=== PATIENT | female | born 1940 | race Caucasian/White ===

== ENCOUNTER → 2021-03-15 10:31 | Outpatient (CLI) | payer MEDICARE, SELFPAY ==
--- NOTE | ~2021-03-15 | XR_ITS ---
EXAMINATION: XR UGIAC wo kub DATE: 03/15/2021 11:55 INDICATION: Epigastric pain. TECHNIQUE: Thick barium contrast with gas effervescent crystals were administered orally. Fluoroscop ic images of the esophagus, stomach, and proximal duodenum were obtained in various projections. The reafter, overhead images of the abdomen were performed. 1 minutes of fluroscopy. DAP 11.4. FINDINGS: No prior studies for comparison. The esophagus is normal in caliber, without mucosal lesions or strictures. There are tertiary contrac tions of the mid and distal esophagus. Peristalsis is disordered.. There is a small hiatal hernia. A nd gastroesophageal gastroesophageal reflux witnessed during the course of the study. The gastric folds are normal. The proximal duodenum is also normal in appearance. IMPRESSION: 1. 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 2: Small sliding hernia with gastroesophageal reflux. Reviewed, dictated and finalized at location B.
== END ==
PROVIDERS: Visit Provider Physician Assistant
DX: R10.13 Epigastric pain (principal); K44.9 Diaphragmatic hernia without obstruction or gangrene; K21.9 Gastro-esophageal reflux disease without esophagitis
CPT/HCPCS: 74246

== ENCOUNTER 2021-04-02 13:25 | Emergency (ER) | payer MEDICARE, SELFPAY ==
[2021-04-02] VITALS (20 sets, daily range): BP systolic 139–172; BP diastolic 61–100; PULSE 50–90; RESP 11–21; TEMP 36.6; O2SAT 93–98
--- NOTE | 2021-04-02 13:41 | ECG_ITS ---
Measurements Intervals [place] Rate: 55 P: 76 KS: 211 QRS: 1 QRSD: 101 T: 18 QT: 443 QTc: 426 Interpretive Statements SINUS BRADYCARDIA WITH FIRST DEGREE AV BLOCK EARLY PRECORDIAL R/S TRANSITION ABNORMAL ECG Electronically Signed On 04-02-2021 15:18:32 CDT by Pino Espinal D.O.
[2021-04-02 14:43] LABS: Basophils Percent Auto 0.4 % (0.2-1.2); Eosinophils Absolute Auto 0.2 K/mm3 (0-0.3); Eosinophils Percent Auto 2.7 % (0-4.4); Hematocrit 41.7 % (37.0-47.0); Hemoglobin 13.7 g/dL (12.0-15.0); Immature Granulocyte Absolute 0.05 K/mm3 (0.00-0.031); Immature Granulocyte Percent A 0.7 % (0-0.5); Lymphocytes Absolute Auto 1.83 K/mm3 (0.9-3.2); Lymphocytes Percent Auto 24.9 % (18.3-44.2); Mean Corpuscular HGB Conc 32.9 g/dl (32-36); Mean Corpuscular Hemoglobin 29.1 pg (26-34); Mean Corpuscular Volume 88.7 fl (80-100); Mean Platelet Volume 9.7 fl (7.4-10.4); Monocytes Absolute Auto 0.5 K/mm3 (0.1-0.6); Monocytes Percent Auto 7.2 % (2.6-8.5); Neutrophils Absolute Auto 4.7 K/mm3 (1.3-6.7); Neutrophils Percent Auto 64.1 % (45.5-73.1); Platelet Count Result 349 k/mm3 (150-375); Red Cell Distribution Width 14.7 % (11.5-14.5); White Blood Count 7.3 K/mm3 (4.5-10.0)
[2021-04-02] MEDS: MECLIZINE HCL 25 MG TABLET PO (14:43)
[2021-04-02] MEDS: SODIUM CHLORIDE 0.9% IV 1,000 ML 999 ML IV CONT (14:44)
--- NOTE | 2021-04-02 14:46 | ED.GENADULT ---
HPI - General Adult General Chief complaint: Dizziness Stated complaint: Confusion, dizziness, bloody poo, nausea Time Seen by Provider: 04/02/21 13:41 History of Present Illness HPI narrative: Patient is an 80-year-old female who presents ER with dizziness. 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 Reports she was walking to the mailbox when it occurred. She eased herself down to the ground and then family came and got her. No nausea or vomiting. Symptoms are worse when looking to the right side. No fevers or chills or sweats. No chest pain or chest pressure. Reports she has been eating and drinking normally. No urinary symptoms. Patient does report she had some blood in her bowel movement today related to some hemorrhoids. No rectal pain or dizziness associated with the bowel movement. Related Data Home Medications Medication Instructions Recorded Confirmed amlodipine 10 mg PO DAILY 08/25/19 08/25/19 cyanocobalamin (vitamin B-12) 1,000 mcg PO DAILY 08/25/19 08/25/19 [Vitamin B-12] ferrous sulfate 325 mg PO BID 08/25/19 08/25/19 hydrochlorothiazide 25 mg PO DAILY 08/25/19 08/25/19 ipratropium-albuterol 1 puff INHALATION QID 08/25/19 08/25/19 letrozole 2.5 mg PO DAILY 08/25/19 08/25/19 levothyroxine 75 mcg PO DAILY 08/25/19 08/25/19 lisinopril 30 mg PO DAILY 08/25/19 08/25/19 magnesium oxide 400 mg PO DAILY 08/25/19 08/25/19 metoprolol succinate 50 mg PO DAILY 08/25/19 08/25/19 niacin 500 mg PO DAILY 08/25/19 08/25/19 pravastatin 10 mg PO DAILY 08/25/19 08/25/19 rivaroxaban 20 mg PO DAILY 08/25/19 08/25/19 Allergies Allergy/AdvReac Type Severity Reaction Status Date / Time codeine AdvReac Nausea and Verified 08/25/19 17:00 Vomiting Review of Systems Review of Systems: All systems reviewed & are unremarkable except as noted in HPI and below Constitutional: Constitutional: Denies chills, Denies fever(s) and Denies weakness Eyes: Eyes: Denies change in vision and Denies photophobia ENT: Reports vertigo, Reports nasal congestion (Chronic) and Denies sore throat Cardiovascular: Cardiovascular: Denies chest pain and Denies radiating jaw, neck or arm pain Gastrointestinal: Gastrointestinal: Denies abdominal pain, Denies nausea and Denies vomiting Neurologic: Denies headache(s), Denies focal weakness and Denies numbness PMFSH Past Medical History Medical History (Updated 04/02/21 @ 17:23 by Zack Garrett MD) Hypercholesterolemia Hypertension Meniere disease Exam Narrative: Exam Narrative: GENERAL: Well-appearing, well-nourished, and in no acute distress. HEAD: Normocephalic, atraumatic. EYES: PERRL and EOMI. no nystagmus ENT: Mucous membranes moist. CHEST: Clear to auscultation. No respiratory distress. HEART: Regular rate and rhythm. Normal peripheral pulses. ABDOMEN: Soft, nontender, nondistended. EXTREMITIES: Normal range of motion. No edema. NEURO: Alert and oriented x3. PSYCH: Normal mood and affect. Course Course Emergency Course: Patient hydrated and given meclizine. Up and ambulatory without issue. Discharge home. Vital Signs Vital signs: Vital Signs Temperature 97.8 F 04/02/21 13:28 Pulse Rate 55 L 04/02/21 13:28 Respiratory Rate 20 04/02/21 13:28 Blood Pressure 172/100 H 04/02/21 13:28 Pulse Oximetry 97 04/02/21 13:28 Temperature 97.8 F 04/02/21 13:28 Pulse Rate 72 04/02/21 17:42 Respiratory Rate 14 04/02/21 17:42 Blood Pressure 159/81 H 04/02/21 17:42 Pulse Oximetry 97 04/02/21 17:42 Medical Decision Making Vital Signs Vital Signs: Vital Signs Temperature 97.8 F 04/02/21 13:28 Pulse Rate 55 L 04/02/21 13:28 Respiratory Rate 20 04/02/21 13:28 Blood Pressure 172/100 H 04/02/21 13:28 Pulse Oximetry 97 04/02/21 13:28 Temperature 97.8 F 04/02/21 13:28 Pulse Rate 72 04/02/21 17:42 Respiratory Rate 14 04/02/21 17:42 Blood Pressure 159/81
[2021-04-02 14:52] LABS: Anion Gap 11 mmol/L (8-16); Blood Urea Nitrogen 15 mg/dL (7-17); Calcium 9.5 mg/dL (8.4-10.2); Carbon Dioxide 24 mmol/L (22-30); Chloride 103 mmol/L (98-107); Estimated CRCL calculation 63 ml/min; Estimated Glomerular Filt Rate > 60; Glucose 107 mg/dL (65-105); Potassium 3.8 mmol/L (3.4-5.0); Sodium 138 mmol/L (137-145)
== END 2021-04-02 17:44 | disposition home or self-care (01) ==
PROVIDERS: Emergency Provider Emergency Medicine
DX: H81.09 Meniere's disease, unspecified ear (principal); E78.00 Pure hypercholesterolemia, unspecified; I10 Essential (primary) hypertension; R00.1 Bradycardia, unspecified; I44.0 Atrioventricular block, first degree; Z79.01 Long term (current) use of anticoagulants
CPT/HCPCS: 36415; 80048; 85025; 93005; 96360; 99283; A9270; J7030

== ENCOUNTER 2021-05-06 13:49 | Outpatient (CLI) | payer MEDICARE, SELFPAY | END 2021-05-06 13:50 | disposition home or self-care (01) | LOC: ANHBWCAUD 13:50 | PROVIDERS: PCP Internal Medicine; Visit Provider Internal Medicine | DX: H90.3 Sensorineural hearing loss, bilateral (principal) | CPT/HCPCS: 92557; 92567 ==

== ENCOUNTER 2021-07-26 14:29 | Outpatient (CLI) | payer MEDICARE, SELFPAY ==
--- NOTE | 2021-07-27 14:37 | WPDPFTINT ---
PFT Procedure Performed PFT Procedure Performed Spirometry with Pre/Post Bronchodilator Plethysmography (Lung Vol) Diffusing Cap (DLCO) Flow Vol Loop PFT Interpretation Lung volumes were measured with the body plethysmography method. Lung volumes are unremarkable. Spirometry showed normal expiratory flow rates and a normal FEV1 to FVC ratio 77%. Following administration of a bronchodilator there was no significant increase in the expiratory flow rates. Lung diffusion capacity is within the normal range. Flow volume loop is unremarkable. Impression: Spirometry, lung volumes, and lung diffusion capacity all within the normal range.
--- NOTE | 2021-07-27 14:39 | WPDSIXMINUTE ---
Six Minute Walk Procedure Procedure Performed Pulmonary Stress Test (6 min walk) Six Minute Walk The 6 minute walk test was carried out with the patient breathing ambient air. The pre test oxyhemoglobin saturation was 94%. Patient using a wheeled walker was able to walk about 198 m with 1 stop of 5 seconds recorded. During the walk the oxyhemoglobin saturation remained over 91%. Impression: No evidence of oxyhemoglobin saturation on this testing.
== END 2021-07-26 14:30 | disposition home or self-care (01) ==
LOC: ANHPFT 14:30
PROVIDERS: PCP Internal Medicine; Visit Provider Nurse Practitioner
DX: J45.909 Unspecified asthma, uncomplicated (principal)
CPT/HCPCS: 94060; 94618; 94726; 94729

== ENCOUNTER 2021-11-30 15:42 | Emergency (ER) | payer MEDICARE, SELFPAY ==
[2021-11-30 15:45] VITALS: BP 113/84; PULSE 72; RESP 18; TEMP 36.3; O2SAT 96
--- NOTE | 2021-11-30 16:26 | ED.LOWEXIN ---
HPI - Extremity Injury (Lower) General Chief Complaint: Extremity Injury, Lower Stated Complaint: fall/foot pain Time Seen by Provider: 11/30/21 16:03 Source: patient Mode of arrival: ambulatory Limitations: no limitations History of Present Illness HPI Narrative: Patient is an 81-year-old female complaining of left foot swelling and redness, top my foot that started a few days ago. Patient states that 2 weeks ago she injured her left foot by hitting against a rocking chair, had x-rays done at an urgent care and was told that it was negative for any fracture. Related Data Home Medications Medication Instructions Recorded Confirmed amlodipine 10 mg PO DAILY 08/25/19 08/25/19 cyanocobalamin (vitamin B-12) 1,000 mcg PO DAILY 08/25/19 08/25/19 [Vitamin B-12] ferrous sulfate 325 mg PO BID 08/25/19 08/25/19 hydrochlorothiazide 25 mg PO DAILY 08/25/19 08/25/19 ipratropium-albuterol 1 puff INHALATION QID 08/25/19 08/25/19 letrozole 2.5 mg PO DAILY 08/25/19 08/25/19 levothyroxine 75 mcg PO DAILY 08/25/19 08/25/19 lisinopril 30 mg PO DAILY 08/25/19 08/25/19 magnesium oxide 400 mg PO DAILY 08/25/19 08/25/19 metoprolol succinate 50 mg PO DAILY 08/25/19 08/25/19 niacin 500 mg PO DAILY 08/25/19 08/25/19 pravastatin 10 mg PO DAILY 08/25/19 08/25/19 rivaroxaban 20 mg PO DAILY 08/25/19 08/25/19 Allergies Allergy/AdvReac Type Severity Reaction Status Date / Time codeine AdvReac Nausea and Verified 08/25/19 17:00 Vomiting Review of Systems Review of Systems: All systems reviewed & are unremarkable except as noted in HPI and below PMFSH Past Medical History Medical History Hypercholesterolemia Hypertension Meniere disease Comments Social history, non-smoker, no EtOH use, lives at home Exam Const: General: no acute distress and alert Orientation/consciousness: patient oriented x3 HENMT: Head: normal to inspection Eyes: Conjunctivae: conjunctivae normal Resp: Effort & Inspection: normal respiratory effort Extrem: Other: Erythematous, tender, swollen, fluctuant area dorsal aspect of the left foot measuring approximately 3 x 4 cm. Neurovascular is intact. Course Vital Signs Vital signs: Vital Signs Temperature 36.3 C L 11/30/21 15:45 Pulse Rate 72 11/30/21 15:45 Respiratory Rate 18 11/30/21 15:45 Blood Pressure 113/84 11/30/21 15:45 Pulse Oximetry 96 11/30/21 15:45 Temperature 36.3 C L 11/30/21 15:45 Pulse Rate 72 11/30/21 15:45 Respiratory Rate 18 11/30/21 15:45 Blood Pressure 113/84 11/30/21 15:45 Pulse Oximetry 96 11/30/21 15:45 Procedures Abscess I/D foot: Date of Incision: 11/30/21 Time of Incision: 16:31 Side (if applicable): left Local Anesthetic: lidocaine 1% Amount of anesthesia used (mL): 2 Technique: incised with #11 blade Amount of fluid expressed (mL): 3 Packing used?: iodoform I&D Results: Pus Discharge Plan Discharge Clinical Impression: Cellulitis and abscess of foot Patient Disposition: Home, Self-Care Condition: Improved Instructions: Abscess Incision and Drainage (DC) Prescriptions: New doxycycline hyclate 100 mg capsule 100 mg PO BID Qty: 14 RF: 0 No Action amlodipine 10 mg Tablet 10 mg PO DAILY RF: 0 metoprolol succinate 50 mg Tablet Extended Release 24 Hr 50 mg PO DAILY RF: 0 cyanocobalamin (vitamin B-12) [Vitamin B-12] 1,000 mcg Tablet 1,000 mcg PO DAILY RF: 0 levothyroxine 75 mcg Tablet 75 mcg PO DAILY RF: 0 pravastatin 10 mg Tablet 10 mg PO DAILY RF: 0 ferrous sulfate 325 mg (65 mg iron) Tablet 325 mg PO BID RF: 0 niacin 500 mg Tablet 500 mg PO DAILY RF: 0 lisinopril 30 mg Tablet 30 mg PO DAILY RF: 0 hydrochlorothiazide 25 mg Tablet 25 mg PO DAILY RF: 0 letrozole 2.5 mg Tablet 2.5 mg PO DAILY RF: 0 rivaroxaban 20 mg Tablet 20 mg P
[2021-11-30] MEDS: LIDOCAINE HCL 1% LOCAL INJ 20 ML VIAL (17:50)
[2021-11-30 18:10] VITALS: RESP 20; O2SAT 94
--- NOTE | 2021-11-30 18:10 | PC.NURSE ---
left foot cleansed and dressed with 4x4 gauze and secured with kerlix
== END 2021-11-30 18:11 | disposition home or self-care (01) ==
LOC: ANHED 17:01
PROVIDERS: Emergency Provider Emergency Medicine; PCP Internal Medicine
DX: L02.612 Cutaneous abscess of left foot (principal); I10 Essential (primary) hypertension; E78.5 Hyperlipidemia, unspecified; H81.09 Meniere's disease, unspecified ear
CPT/HCPCS: 10061; 99283

== ENCOUNTER 2022-01-23 12:13 | Emergency (ER) | payer MEDICARE, SELFPAY ==
[2022-01-23] VITALS (7 sets, daily range): BP systolic 110–163; BP diastolic 70–147; PULSE 71–83; RESP 16–19; TEMP 36.5; O2SAT 91–97
--- NOTE | ~2022-01-23 | XR_ITS ---
EXAMINATION: XR chest 2V DATE: 01/23/2022 13:15 INDICATION: Productive cough TECHNIQUE: PA and lateral views of the chest are obtained. COMPARISON: 08/25/2019 FINDINGS: The lungs are hyperinflated but free of acute opacities. There is no pleural effusion or pn eumothorax. The cardiomediastinal silhouette is normal. There is moderate thoracic spondylosis. Surgi dave clips are noted in the left axilla. Healed left-sided rib fractures are noted. IMPRESSION: 1. No acute cardiopulmonary abnormality. Reviewed, dictated and finalized at location A.
--- NOTE | 2022-01-23 14:17 | ED.GENADULT ---
HPI - General Adult General Chief complaint: Upper Respiratory Infection Stated complaint: coughing up blood, sick for 8 wks Time Seen by Provider: 01/23/22 13:33 Source: patient, family and RN notes reviewed Mode of arrival: ambulatory Limitations: no limitations History of Present Illness HPI narrative: 81-year-old female presents to the emergency department for evaluation for 8 weeks of an upper respiratory congestion. Patient had been doxycycline for her foot during the beginning of this illness and states that this did not help her respiratory symptoms. Patient was also started on Keflex and amoxicillin. patient completed the Keflex and is still taking the amoxicillin patient states that the symptoms have not changed and have possibly worsened.. Patient does have chest tightness. Patient is on Xarelto and did have 1 episode of hemoptysis approximately 2 days ago. Related Data Home Medications Medication Instructions Recorded Confirmed amlodipine 10 mg PO DAILY 08/25/19 08/25/19 cyanocobalamin (vitamin B-12) 1,000 mcg PO DAILY 08/25/19 08/25/19 [Vitamin B-12] ferrous sulfate 325 mg PO BID 08/25/19 08/25/19 hydrochlorothiazide 25 mg PO DAILY 08/25/19 08/25/19 ipratropium-albuterol 1 puff INHALATION QID 08/25/19 08/25/19 letrozole 2.5 mg PO DAILY 08/25/19 08/25/19 levothyroxine 75 mcg PO DAILY 08/25/19 08/25/19 lisinopril 30 mg PO DAILY 08/25/19 08/25/19 magnesium oxide 400 mg PO DAILY 08/25/19 08/25/19 metoprolol succinate 50 mg PO DAILY 08/25/19 08/25/19 niacin 500 mg PO DAILY 08/25/19 08/25/19 pravastatin 10 mg PO DAILY 08/25/19 08/25/19 rivaroxaban 20 mg PO DAILY 08/25/19 08/25/19 Allergies Allergy/AdvReac Type Severity Reaction Status Date / Time codeine AdvReac Nausea and Verified 01/23/22 12:38 Vomiting meperidine [From Demerol] AdvReac Vomiting Verified 01/23/22 12:38 Review of Systems Review of Systems: CONSTITUTIONAL: Increased generalized weakness EYES: Denies visual changes, redness, or discharge. ENT: Denies rhinorrhea, congestion, sore throat, or otalgia. CARDIOVASCULAR: Denies chest pain, palpitations, or edema. RESPIRATORY: See HPI GASTROINTESTINAL: Denies abdominal pain, nausea, vomiting, or diarrhea. GENITOURINARY: Denies dysuria or hematuria. SKIN: Denies rash or itching. MUSCULOSKELETAL: Denies back pain, joint pain, or myalgia. NEUROLOGIC: Denies headache, numbness, or weakness. PSYCHIATRIC: Denies anxiety or depression. [facility] Past Medical History Medical History Hypercholesterolemia Hypertension Meniere disease Exam Narrative: APPEARANCE: Well appearing, no pain, no distress, well-nourished. HEAD: normocephalic, atraumatic. EYES: PERRLA/EOMI, conjunctivae clear. NOSE: Normal no drainage EARS:TMS clear with good light reflex. THROAT: Pharynx clear, no exudate. NECK: Supple. No adenopathy, no masses. RESPIRATORY: Airway patent, respirations nonlabored. Clear to auscultation bilaterally, no rales, rhonchi, wheezing. CARDIOVASCULAR: Regular rate and rhythm without murmurs rubs or gallops. ABDOMINAL: Soft, nontender, nondistended, normal bowel sounds MUSCULOSKELETAL: Moves all extremities. Strength/ROM intact, No edema, No calf tenderness. NEURO: Alert. Cranial nerves II through XII intact. Grossly intact SKIN: Warm, dry. Normal Color Course Course Emergency Course: Patient daughter updated on the results of the work-up. Patient's D-dimer was not elevated. Patient's vital signs were stable and patient was not hypoxic. Patient was negative for influenza and SARS. No leukocytosis, hemoglobin is 14.1. No significant electrode abnormalities. Due to the possibility of an atypical pneumonia patient is being treated with azithromycin. Daughter also requested follow-up with ENT due to chronic tinnitus. They were also referred to pulmonology due to the potential chronic nature of her respiratory symptoms. Vital Signs Vital sign
[2022-01-23 15:24] LABS: Basophils Absolute Auto 0.1 K/mm3 (0.0-0.1); Basophils Percent Auto 0.8 % (0.2-1.2); Eosinophils Absolute Auto 0.2 K/mm3 (0-0.3); Eosinophils Percent Auto 2.8 % (0-4.4); Hematocrit 43.4 % (37.0-47.0); Hemoglobin 14.1 g/dL (12.0-15.0); Immature Granulocyte Percent A 1.5 % (0-0.5); Lymphocytes Absolute Auto 1.94 K/mm3 (0.9-3.2); Mean Corpuscular HGB Conc 32.5 g/dl (32-36); Mean Corpuscular Hemoglobin 29.1 pg (26-34); Mean Corpuscular Volume 89.5 fl (80-100); Mean Platelet Volume 8.9 fl (7.4-10.4); Monocytes Absolute Auto 0.6 K/mm3 (0.1-0.6); Monocytes Percent Auto 9.1 % (2.6-8.5); Neutrophils Absolute Auto 3.6 K/mm3 (1.3-6.7); Neutrophils Percent Auto 55.8 % (45.5-73.1); Platelet Count Result 392 k/mm3 (150-375); Red Blood Count 4.85 M/mm3 (4.2-5.4); White Blood Count 6.5 K/mm3 (4.5-10.0)
[2022-01-23 15:25] LABS: Influenza A QL RT-PCR Negative (Negative); Influenza B QL RT-PCR Negative (Negative); SARS-CoV-2 RNA PCR Negative
[2022-01-23 15:38] LABS: Alanine Aminotransferase 15 U/L (4-35); Albumin Level 4.1 g/dL (3.5-5.1); Alkaline Phosphatase 107 U/L (38-126); Anion Gap 9 mmol/L (8-16); Aspartate Amino Transferase 23 U/L (14-36); Bilirubin,Total 0.2 mg/dL (0.2-1.3); Blood Urea Nitrogen 18 mg/dL (7-17); Calcium 9.3 mg/dL (8.4-10.2); Carbon Dioxide 29 mmol/L (22-30); Chloride 100 mmol/L (98-107); Estimated CRCL calculation 61 ml/min; Estimated Glomerular Filt Rate > 60; Glucose 102 mg/dL (65-110); Potassium 3.4 mmol/L (3.4-5.0); Sodium 138 mmol/L (137-145)
[2022-01-23 15:53] LABS: D Dimer 0.43 ug/mL (<0.48)
== END 2022-01-23 16:51 | disposition home or self-care (01) ==
PROVIDERS: Emergency Provider Emergency Medicine; PCP Internal Medicine
DX: J06.9 Acute upper respiratory infection, unspecified (principal); Z20.822 Contact with and (suspected) exposure to COVID-19; I10 Essential (primary) hypertension; E78.00 Pure hypercholesterolemia, unspecified; H81.09 Meniere's disease, unspecified ear
CPT/HCPCS: 36415; 71046; 80053; 85025; 85380; 87502; 99283; C9803; U0003; U0005

== ENCOUNTER 2023-03-20 12:32 | Outpatient (CLI) | payer MEDICARE, SELFPAY ==
--- NOTE | ~2023-03-20 | MMUS_ITS ---
EXAMINATION: MM diagnostic maurice BI w aidee, US breast LT limited HISTORY: Tender nodule reported by patient in upper left breast TECHNIQUE: ML, MLO and CC 3-D tomosynthesis images of both breasts were performed and synthetic 2-D i mages were generated. CAD analysis was submitted and interpreted. High resolution breast ultrasound w as performed. COMPARISON: None BREAST PARENCHYMAL COMPOSITION: There are scattered areas of fibroglandular density. FINDINGS: MAMMOGRAPHIC FINDINGS: There are postoperative changes of left partial mastectomy, upper mid left breast, including surgical clips, probable postoperative scarring. Bilateral nipple retraction. Scattered bilateral benign calcifications. No malignant calcifications are noted. Comparison with prior mammogram is recommended. ULTRASOUND: Targeted ultrasound at the patient's complaint of left breast tender nodule at 12:00 20 cm from the n ipple reveals no suspicious mass or shadowing. IMPRESSION: 1. Status post left partial mastectomy and evidence of bilateral nipple retraction 2. Comparison with prior mammogram examination is recommended BI-RADS Category 0: Incomplete: Needs additional imaging evaluation. Reviewed, dictated and finalized at location A. IMPRESSION: 1. Status post left partial mastectomy and evidence of bilateral nipple retract ion 2. Comparison with prior mammogram examination is recommended BI-RADS Category 0: Incomplete: Needs additional imaging evaluation.
== END 2023-03-20 12:33 | disposition home or self-care (01) ==
PROVIDERS: PCP Family Medicine; Visit Provider Family Medicine
DX: N64.4 Mastodynia (principal); R92.8 Other abnormal and inconclusive findings on diagnostic imaging of breast; R92.2 Inconclusive mammogram
CPT/HCPCS: 76642; 77062; 77066; G0279

== ENCOUNTER 2023-08-08 14:25 | Outpatient (CLI) | payer MEDICARE, SELFPAY ==
[2023-08-08 19:18] LABS: Basophils Percent Auto 0.6 % (0.2-1.2); Eosinophils Absolute Auto 0.1 K/mm3 (0-0.3); Eosinophils Percent Auto 1.1 % (0-4.4); Hematocrit 45.9 % (37.0-47.0); Hemoglobin 14.8 g/dL (12.0-15.0); Immature Granulocyte Absolute 0.03 K/mm3 (0.00-0.031); Immature Granulocyte Percent A 0.4 % (0-0.5); Lymphocytes Absolute Auto 2.46 K/mm3 (0.9-3.2); Lymphocytes Percent Auto 34.5 % (18.3-44.2); Mean Corpuscular HGB Conc 32.2 g/dl (32-36); Mean Corpuscular Hemoglobin 29.8 pg (26-34); Mean Corpuscular Volume 92.5 fl (80-100); Mean Platelet Volume 9.5 fl (7.4-10.4); Monocytes Absolute Auto 0.5 K/mm3 (0.1-0.6); Monocytes Percent Auto 7.6 % (2.6-8.5); Neutrophils Percent Auto 55.8 % (45.5-73.1); Platelet Count Result 333 k/mm3 (150-375); Red Blood Count 4.96 M/mm3 (4.2-5.4); Red Cell Distribution Width 14.1 % (11.5-14.5); White Blood Count 7.1 K/mm3 (4.5-10.0)
[2023-08-08 19:57] LABS: Free T4 Free Thyroxine 1.63 ng/mL (0.78-2.19); Vitamin D 25 Hydroxy 36.3 ng/mL
[2023-08-08 20:36] LABS: Alanine Aminotransferase 18 U/L (6-35); Albumin Level 4.5 g/dL (3.5-5.1); Alkaline Phosphatase 112 U/L (38-126); Anion Gap 12 mmol/L (8-16); Aspartate Amino Transferase 32 U/L (14-36); Bilirubin,Total 0.5 mg/dL (0.2-1.3); Blood Urea Nitrogen 14 mg/dL (7-17); Calcium 9.5 mg/dL (8.4-10.2); Carbon Dioxide 25 mmol/L (22-30); Chloride 102 mmol/L (98-107); Cholesterol 308 mg/dL (0-200); Estimated Glomerular Filt Rate > 60; Glucose 87 mg/dL (65-110); HDL Direct 49 mg/dL; Potassium 3.6 mmol/L (3.4-5.0); Sodium 139 mmol/L (137-145); Triglycerides 325 mg/dL (<150)
[2023-08-08 20:47] LABS: LDL Cholesterol Direct 178 mg/dL
[2023-08-08 21:41] LABS: Hemoglobin A1C 5.7 % (<5.7)
== END 2023-08-08 14:26 | disposition home or self-care (01) ==
LOC: ANHGOSHLAB 14:28
PROVIDERS: PCP Family Medicine; Visit Provider Family Medicine
DX: E03.9 Hypothyroidism, unspecified (principal); E55.9 Vitamin D deficiency, unspecified; I10 Essential (primary) hypertension; R25.1 Tremor, unspecified; R52 Pain, unspecified; R73.01 Impaired fasting glucose; H92.03 Otalgia, bilateral
CPT/HCPCS: 36415; 80053; 80061; 82306; 83036; 84439; 84443; 85025

== ENCOUNTER → 2023-08-08 14:45 | Outpatient (CLI) | payer MEDICARE, SELFPAY ==
--- NOTE | ~2023-08-08 | XR_ITS ---
Left Shoulder Technique: AP and axillary views were obtained. Clinical History: Pain Findings: No fracture or dislocation is seen. There is severe degenerative change of the glenohumeral and a, clavicular joints. Soft tissues are unremarkable. Impression: Severe degenerative change of the glenohumeral and acromial clavicular joints. Reviewed, dictated and finalized at location . S ENGAGEMENT MANAGER Impression: Severe degenerative change of the glenohumeral and acromial clavicular joints.
== END ==
PROVIDERS: PCP Family Medicine; Visit Provider Family Medicine
DX: M25.512 Pain in left shoulder (principal)
CPT/HCPCS: 73030

== ENCOUNTER 2023-08-22 11:01 | Outpatient (CLI) | payer MEDICARE, SELFPAY ==
[2023-08-22 14:41] LABS: Cholesterol 284 mg/dL (0-200); HDL Direct 49 mg/dL; Triglycerides 207 mg/dL (<150)
[2023-08-22 14:56] LABS: LDL Cholesterol Direct 169 mg/dL
[2023-08-27 05:19] LABS: Apolipoprotein B 158 mg/dL (<90)
== END 2023-08-22 11:02 | disposition home or self-care (01) ==
LOC: ANHGOSHLAB 11:04
PROVIDERS: PCP Family Medicine; Visit Provider Family Medicine
DX: E78.5 Hyperlipidemia, unspecified (principal); I10 Essential (primary) hypertension
CPT/HCPCS: 36415; 80061; 82172

== ENCOUNTER 2023-11-16 08:12 | Outpatient (CLI) | payer MEDICARE, SELFPAY ==
[2023-11-16 20:35] LABS: Cholesterol 237 mg/dL (0-200); HDL Direct 48 mg/dL; Triglycerides 203 mg/dL (<150)
[2023-11-16 20:47] LABS: LDL Cholesterol Direct 142 mg/dL
== END 2023-11-16 08:13 | disposition home or self-care (01) ==
LOC: ANHGOSHLAB 08:14
PROVIDERS: PCP Family Medicine; Visit Provider Family Medicine
DX: Z12.31 Encounter for screening mammogram for malignant neoplasm of breast (principal); E78.5 Hyperlipidemia, unspecified; I10 Essential (primary) hypertension
CPT/HCPCS: 36415; 80061

== ENCOUNTER 2024-03-11 10:23 | Outpatient (CLI) | payer MEDICARE, SELFPAY ==
--- NOTE | ~2024-03-11 | MR_ITS ---
EXAMINATION: MR brain/brain stem wo/w con DATE: 03/11/2024 11:31 INDICATION: Dizziness. Repeated falls. TECHNIQUE: Magnetic resonance imaging (MRI) of the brain and brainstem was performed without and with 18 mL MultiHance intravenous contrast. COMPARISON: None. FINDINGS: There is an empty sella. There are scattered areas of nonspecific increased T2-weighted sig nal intensity in the cerebral white matter and jonathan. There is no intracranial hemorrhage, acute infar ction, or abnormal intracranial mass lesion. The ventricles are normal in size. There is mild mucosal thickening in the paranasal sinuses. There are likely changes of ocular lens replacement surgeries. The mastoid air cells are normal. IMPRESSION: 1. Extensive nonspecific cerebral white matter disease and pontine disease, which likely represents c hronic small vessel ischemic disease. Reviewed, dictated and finalized at location E. IMPRESSION: 1. Extensive nonspecific cerebral white matter disease and pontine disease, whi ch likely represents chronic small vessel ischemic disease.
== END 2024-03-11 10:24 | disposition home or self-care (01) ==
LOC: ANHIMG 10:25
PROVIDERS: PCP Family Medicine; Visit Provider Clinical Nurse Specialist
DX: R42 Dizziness and giddiness (principal); R90.82 White matter disease, unspecified; R29.6 Repeated falls
CPT/HCPCS: 70553; A9577

== ENCOUNTER 2024-04-03 07:24 | Outpatient (CLI) | payer MEDICARE, SELFPAY ==
--- NOTE | ~2024-04-03 | MM_ITS ---
EXAMINATION: MM screening [facility] BI w aidee HISTORY: Screening TECHNIQUE: Craniocaudal and mediolateral oblique 3-D tomosynthesis images were obtained and synthetic 2-D images were generated. CAD analysis was submitted and interpreted. COMPARISON: Comparison to multiple prior studies sequentially, with oldest reviewed study dated 11/03. BREAST PARENCHYMAL COMPOSITION: Not dense: There are scattered areas of fibroglandular density. FINDINGS: Stable lumpectomy changes in the left breast. There is no evidence of suspicious mass, calc ification, or architectural distortion to suggest malignancy in either breast. There has been no susp icious interval change. IMPRESSION: 1. No mammographic evidence of malignancy. 2. Recommend routine screening mammography in one year. BI-RADS Category 1: Negative Reviewed, dictated and finalized at location B.
== END 2024-04-03 07:25 | disposition home or self-care (01) ==
LOC: ANHIMG 07:27
PROVIDERS: PCP Family Medicine; Visit Provider Family Medicine
DX: Z12.31 Encounter for screening mammogram for malignant neoplasm of breast (principal)
CPT/HCPCS: 77063; 77067

== ENCOUNTER 2024-10-08 11:29 | Outpatient (CLI) | payer MEDICARE, SELFPAY ==
--- NOTE | ~2024-10-08 | DEXA_ITS ---
Bone Density Report Name: MARLEY DELACRUZ Age: 84 Sex: Female Ethnicity: White Date of : 1940 Indication: postmenopausal; screening for osteoporosis; height loss; cancer; asthma or emphysema; hysterectomy; Referring Provider: NIR RUEDA Study: Bone densitometry was performed. Exam Date: October 08, 2024 Accession number: [id number] Bone Density: Region BMD T-score Z-score Classification AP Spine(L1-L4) 0.929 -1.1 1.8 Osteopenia Femoral Neck (Left) 0.736 -1.0 1.5 Normal Total Hip (Left) 1.019 0.6 3.0 Normal Femoral Neck (Right) 0.748 -0.9 1.6 Normal Total Hip (Right) 0.923 -0.2 2.2 Normal Total Hip Mean 0.971 0.2 2.6 Normal World Health Organization criteria for BMD impression classify patients as: Normal (T-score at or above -1.0), Osteopenia (T-score between -1.0 and -2.5), or Osteoporosis (T-score at or below -2.5). 10-year Fracture Risk(1): Major Osteoporotic Fracture 10% Hip Fracture 2.3% Reported Risk Factors: [place] (), Neck BMD=0.736, BMI=36.1 (1) FRAX(R) Version 3.08. Fracture probability calculated for an untreated patient. Fracture probability may be lower if the patient has received treatment. Clinical Information Provided by Patient: Has used the following medications: Vitamin D, Calcium Has the following medical conditions: Asthma or Emphysema, Cancer, Hysterectomy, breast ca Patient maximum height was 64.0 Menopause Age: 48 No regular weight bearing exercise Drinks caffeinated beverages Onset of menses at age 10 Number of children 11 Impression: The patient has low bone mass, based on the Total Spine T-score. The patient has an estimated ten-year risk of hip fracture of 2.3% and an estimated ten-year risk of major fracture of 10%, based on the WHO FRAX algorithm. Discussion: BONE DENSITY IS LOW AT ONE OR MORE SKELETAL SITES. This patient's lowest T-score is low at one or more skeletal sites. It meets the World Health Organization's (WHO) criteria for ?low bone mass? (T-score between -1.0 and -2.5). The patient's 10-year risk of fracture as calculated by FRAX is less than the threshold where pharmacological therapy is recommended by the National Osteoporosis Foundation (NOF). However, all treatment decisions require clinical judgment and consideration of individual patient factors, including patient preferences, comorbidities, previous drug use, risk factors not captured in the FRAX model (e.g., frailty, falls, vitamin D deficiency, increased bone turnover, interval significant decline in bone density) and possible under or overestimation of fracture risk by FRAX. The patient should follow a healthful lifestyle (good nutrition with adequate calcium and vitamin D, and appropriate weight-bearing exercise). Follow-Up: Consider repeating this study in 2 to 3 years to reassess this patient's status, or sooner if there is some new clinical indication. Reported by: LEE on 10/08/2024 12:11:00 PM. Reviewed, dictated and finalized at location AAlysha LEIVA
== END 2024-10-08 11:30 | disposition home or self-care (01) ==
LOC: ANHIMG 11:30
PROVIDERS: PCP Family Medicine; Visit Provider Family Medicine
DX: Z78.0 Asymptomatic menopausal state (principal); M85.88 Other specified disorders of bone density and structure, other site
CPT/HCPCS: 77080

== ENCOUNTER 2024-10-29 14:47 | Outpatient (CLI) | payer MEDICARE, SELFPAY ==
--- NOTE | ~2024-10-29 | XR_ITS ---
EXAMINATION: XR chest 2V DATE: 10/29/2024 15:09 INDICATION: Dyspnea and 2 weeks of cough TECHNIQUE: PA and lateral views of the chest were obtained. COMPARISON: Chest radiograph dated 01/23/2022 FINDINGS: Mild reticular pattern at the bilateral lung bases. No pleural effusion or pneumothorax.. Heart size is normal. Small retrocardiac hiatal hernia. Surgical clips at the left axilla. Cholecystectomy clips in right upper quadrant. Old lateral left rib fractures. Thoracic dextrocurvature with moderate spon dylosis. IMPRESSION: 1. Moderate to severe pattern at the bilateral lung bases which could represent atelectasis, mild pul monary edema or pneumonia. 2. Small hiatal hernia. Reviewed, dictated and finalized at location A. CAL ADMINISTRATIVE ASSISTANT IMPRESSION: 1. Moderate to severe pattern at the bilateral lung bases which could represent atelectasis, mild pulmonary edema or pneumonia. 2. Small hiatal hernia.
== END 2024-10-29 14:48 | disposition home or self-care (01) ==
LOC: GOSHIMG 14:48
PROVIDERS: PCP Family Medicine; Visit Provider Family Medicine
DX: R91.8 Other nonspecific abnormal finding of lung field (principal); R05.9 Cough, unspecified; R06.00 Dyspnea, unspecified; K44.9 Diaphragmatic hernia without obstruction or gangrene
CPT/HCPCS: 71046

== ENCOUNTER 2024-10-29 15:08 | Outpatient (CLI) | payer MEDICARE, SELFPAY ==
--- OUTSIDE RECORDS SUMMARY | 2024-10-29 15:43 | XMS_ITS | Clinical Summary ---
Author Organization [facility] Address [address] [place] [address] Care Team Providers Care Tractor Drill Operator Name Role Phone Clarisse Kenny MD Unavailable [phone] Ken Mckeon MD Unavailable [phone] Kiana Read NP Unavailable [phone] Rosario Sexton DO Primary Care Provider + Allergies Active Allergy Reactions Criticality Noted Date Comments Meperidine Vomiting High 04/28/2020 Perforated Ulcer, vomiting blood Doxycycline Vomiting Medium 04/03/2022 Mold Shortness of breath High 04/28/2020 Patient has asthma, mold causes SOB & asthma flare Pravastatin Muscle pain Medium 03/31/2022 Pravastatin Medications amLODIPine (NORVASC) 10 mg tablet amlodipine 10 mg tablet Take 1 tablet every day by oral route. 9 Active metoprolol XL (TOPROL-XL) 50 mg 24 hr tablet metoprolol succinate ER 50 mg tablet,extended release 24 hr Take 1 tablet every day by oral route. 8 Active hydroCHLOROthia zide (HYDRODIURIL) 25 mg tablet daily 8 Active levothyroxine (SYNTHROID) 75 mcg tablet Take 1 tablet (75 mcg total) by mouth daily 9 Active ferrous sulfate 325 mg (65 mg of elemental iron) tablet Take 1 tablet (325 mg total) by mouth daily 8 Active cyanocobalamin (Vitamin B-12) 1,000 mcg tablet Take 1 tablet (1,000 mcg total) by mouth daily 8 Active niacin 500 mg tablet daily 8 Active fluticasone propion-salmete roL (ADVAIR DISKUS) 250-50 mcg/dose diskus inhaler Wixela Inhub 250 mcg-50 mcg/dose powder for inhalation Inhale 1 inhalation twice a day by inhalation route. 8 Active magnesium gluconate 200 mg tabletIndicatio ns:hypomagnesem ia Take 1 tablet (200 mg total) by mouth 0 Active calcium-vitamin D3-vitamin K 500-500-40 mg-unit-mcg tablet,chewable Take by mouth [address] (PROTONIX) 20 mg EC tablet Take 1 tablet (20 mg total) by mouth daily Active lisinopriL (PRINIVIL,ZESTR IL) 30 mg tablet Take 1 tablet (30 mg total) by mouth daily 90 tablet 1 2 Active aspirin 81 mg enteric coated tablet aspirin 81 mg tablet,delayed release Take 1 tablet every day by oral route. 9 Active rosuvastatin (CRESTOR) 40 mg tablet Take 1 tablet (40 mg total) by mouth daily 2 Active Active Problems Problem Noted Date Diagnosed Date Dizziness and giddiness 04/21/2022 Sensorineural hearing loss (SNHL) of both ears 0 04/03/2022 Statin myopathy 03/31/2022 Paroxysmal atrial fibrillation (CMS/HCC) 022 LEE (dyspnea on exertion) 07/21/2020 Chronic fatigue 07/21/2020 Palpitations 07/21/2020 Uncomplicated asthma 07/21/2020 Hypertension 07/08/2018 Mixed hyperlipidemia 05/01/2017 History of pulmonary embolism 10/28/2016 Personal history of breast cancer 06/22/2015 Resolved Problems Problem Noted Date Diagnosed Date Resolved Date History of atrial fibrillation 07/21/2020 04/09/2023 Chronic anticoagulation 04/21/201603/24 Surgical History Surgery Date Site/Laterality Comments TONSILLECTOMY 09/24/1944 - 09/23/1945 APPENDECTOMY 09/24/1949 - 09/23/1950 HYSTERECTOMY 09/24/1970 - 09/23/1971 CHOLECYSTECTOMY 09/24/1995 - 09/23/1996 SMALL INTESTINE SURGERY 09/24/2015 - 09/23/2016 Medical History Medical History Date Comments Atrial fibrillation (CMS/HCC) (HCC) Asthma Depression Cardiac arrest (HCC) 2016 during hosp ital stay in ICU HTN (hypertension) High cholesterol Thyroid disorder Stomach ulcer GIB in 30's, non e since Pulmonary embolism (HCC) Family History Medical History Relation Name Comments No Known Problems Father No Known Problems Mother Relation Name Status Comments Father Mother Social History Tobacco Use Types Packs/Day Years Used Date Smoking Tobacco: Never Smokeless Tobacco: Never Alcohol Use Standard Drinks/Week Comments Yes 0 (1 standard drink = 0.6 oz pur e alcohol) Personal Safety Answer Date Recorded Getting School Help Needed Not on file 10/15 Comments Unknown Sex and Gender Information Value Date Recorded Sex Assigned at Not on file Legal Sex Female 9:01 AM VISUAL INSPECTOR Gender Identity Not on file Sexual Orientation Not on file Obstetrics History Last Filed Vital Signs Vital Sign Reading Time Taken Comments Blood Pressure 138/78 10/18/2023 12:12 PM VISUAL INSPECTOR Pulse 83 10/18/2023 12:12 PM VISUAL INSPECTOR Temperature 36.3 C (97.3 F) 11/04/2021 2:09 PM VISUAL INSPECTOR Respiratory Rate 20 11/04/2021 2:09 PM VISUAL INSPECTOR Oxygen Saturation 95% 10/18/2023 12:12 PM VISUAL INSPECTOR Inhaled Oxygen Concentration - - Weight 91.6 kg (202 lb) 10/18/2023 12:12 PM VISUAL INSPECTOR Height 152.4 cm (5') 10/18/2023 12:12 PM VISUAL INSPECTOR Body Mass Index 39.45 10/18/2023 12:12 PM VISUAL INSPECTOR Plan of Treatment Health Maintenance Due Date Last Done Comments Depression Screening 1940 Fall Risk Assessment 1940 DTaP/Tdap/Td Vaccine (1 - Tdap) 1949 Hepatitis B Screening 1956 Zoster Vaccine (1 of 2) 1988 Well Visit 65+ 2003 Influenza Vaccine (#1) 2024 Pneumococcal vaccine 65+ Completed 05/01/2017, 03/25 Insurance MEDICARE [facility] MEDICARE [facility] MEDICARE [facility] Care Teams Tractor Drill Operator Relationship Specialty Start Date End Date Rosario Sexton DO [address] [facility] [address] [place], [place] [phone] PCP - General Family Medicine 04/09/23 Clarisse Kenny MD [address] [facility] [address] [place], [place] [id number] Medical Oncologist/Station Supervisor Medical Oncology 11/03/20 Ken Mckeon MD [address] [facility] [address] [place] [address] Consulting Physician Cardiology 11/04/21 Kiana Read NP [address] [facility] [address] [place] [address] Nurse Practitioner Medical Oncology 11/04/21
--- OUTSIDE RECORDS SUMMARY | 2024-10-29 15:43 | XMS_ITS | Referral Summary ---
Author Organization [facility] Address [address] [place] [address] Care Team Providers Care Word Processing Supervisor Name Role Phone Clarisse Kenny MD Unavailable [phone] Ken Mckeon MD Unavailable [phone] Kiana Read NP Unavailable [phone] Rosario Sexton DO Primary Care Provider + [...] atrial fibrillation 07/21/2020 04/09/2023 Chronic anticoagulation 04/21/201603/24 Social History Tobacco Use Types Packs/Day Years [...] on file Legal Sex Female 9:01 AM MICA PARTS SPRAYER Gender Identity Not on file Sexual Orientation Not on file Last Filed Vital Signs Vital Sign Reading Time Taken Comments Blood Pressure 138/78 10/18/2023 12:12 PM MICA PARTS SPRAYER Pulse 83 10/18/2023 12:12 PM MICA PARTS SPRAYER Temperature 36.3 C (97.3 F) 11/04/2021 2:09 PM MICA PARTS SPRAYER Respiratory Rate 20 11/04/2021 2:09 PM MICA PARTS SPRAYER Oxygen Saturation 95% 10/18/2023 12:12 PM MICA PARTS SPRAYER Inhaled Oxygen Concentration - - Weight 91.6 kg (202 lb) 10/18/2023 12:12 PM MICA PARTS SPRAYER Height 152.4 cm (5') 10/18/2023 12:12 PM MICA PARTS SPRAYER Body Mass Index 39.45 10/18/2023 12:12 PM MICA PARTS SPRAYER Plan of Treatment Not on file Insurance MEDICARE [facility] MEDICARE [facility] MEDICARE [facility] Care Teams Word Processing Supervisor Relationship Specialty Start Date End Date Sexton Rosario DO Aruna [address] [place], [place] [id number] PCP - General Family Medicine 04/09/23 Clarisse Kenny MD [address] [place], [place] [id number] Medical Oncologist/Retail Service Technician Medical Oncology 11/03/20 Ken Mckeon MD [address] [facility] [address] [place], [place] [id number] Consulting Physician Cardiology 11/04/21 Kiana Raed NP [address] [facility] [address] [place], [place] [id number] Nurse Practitioner Medical Oncology 11/04/21
--- OUTSIDE RECORDS SUMMARY | 2024-10-29 15:43 | XMS_ITS | Encounter Summary ---
Author Organization [facility] [employer] [facility] Address [address] [place] [address] Phone Care Team Providers Care Sheriff Detective Name Role Phone [employer] Primary Care Pr ovider Clarisse Kenny MD Unavailable [phone] Josh Harris MD Primary Care Provide r Ken Mckeon MD Unavailable [phone] Kiana eRad NP Unavailable [phone] Rosario Sexton DO Primary Care Provider + Encounter Details Date Type Department Care Team (Latest Contact Info) Description 03/31/2020 Orders Only [facility] Scanning, Provider Social History Tobacco Use Types Packs/Day Years Used Date Smoking Tobacco: Never Smokeless Tobacco: Never Alcohol Use Standard Drinks/Week Comments Yes 0 (1 standard drink = 0.6 oz pur e alcohol) Comments Unknown Sex and Gender Information Value Date Recorded Sex Assigned at Not on file Legal Sex Female 9:01 AM BUFFER OPERATOR Gender Identity Not on file Sexual Orientation Not on file documented as of this encounter Plan of Treatment Not on file documented as of this encounter Procedures Procedure Name Priority Date/Time Associated Diagnosis Comments SCAN - LABS 03/31/2020 documented in this encounter Results * SCAN - LABS (03/31/2020) us Provider Scanning Final Result documented in this encounter Visit Diagnoses Not on filedocumented in this encounter Care Teams Sheriff Detective Relationship Specialty Start Date End Date Hui Veras PA PCP - General Physician Office Manager 10/01/19 09/20/21 Josh Harris MD [address] [facility] [address] [place] [address] PCP - General Internal Medicine 09/21/21 04/08/23 Rosario Sexton DO [address] [facility] [address] [place] [address] PCP - General Family Medicine 04/09/23 Clarisse Kenny MD [address] [facility] [address] [place] [address] Medical Oncologist/Geothermal Field Technician Medical Oncology 11/03/20 Ken Mckeon MD [address] [facility] [address] [place] [address] Consulting Physician Cardiology 11/04/21 Kiana Read NP [address] [facility] [address] [place] [address] Nurse Practitioner Medical Oncology 11/04/21 documented as of this encounter
--- OUTSIDE RECORDS SUMMARY | 2024-10-29 15:43 | XMS_ITS | Clinical Summary ---
Author Organization [facility] Address [address] [place] [address] Phone Care Team Providers Care Program Advocate Name Role Phone Hui Veras Primary Care Provider Allergies Active Allergy Reactions Criticality Noted Date Comments Meperidine Vomiting 08/25/2019 projectile vomiting and stomach bleeding Medications amLODIPine (NORVASC) 10 MG Tablet Take 10 mg by mouth daily. Active ferrous sulfate 325 (65 Fe) MG Tablet Take 325 mg by mouth daily. Active hydroCHLOROthiaz carmen 25 MG Tablet Take 25 mg by mouth daily. Active Ipratropium-Albu terol (COMBIVENT IN) take by inhalation. Active letrozole (FEMARA) 2.5 MG Tablet Take 2.5 mg by mouth daily Active levothyroxine (SYNTHROID) 75 MCG Tablet Take 75 mcg by mouth daily. Active Lisinopril 30 MG Tablet Take 30 mg by mouth daily. Active magnesium oxide (MAG-OX) 400 MG Tablet Take 400 mg by mouth daily. Active metoprolol Succinate (TOPROL-XL) 50 MG TABLET SR 24 HR Take 50 mg by mouth daily. Active niacin 500 MG Tablet Take 500 mg by mouth daily. Active pravastatin (PRAVACHOL) 10 MG Tablet Take 10 mg by mouth daily. Active rivaroxaban (XARELTO) 20 MG Tablet Take 20 mg by mouth daily (with dinner). Take with food. Active Cyanocobalamin (VITAMIN B 12 PO) Take by mouth. Active aspirin 81 MG Chewable Tablet Take 1 Tab by mouth daily. 100 Tab 08/26/2019 Active Active Problems Problem Noted Date Diagnosed Date Hypothyroid 08/26/2019 Hypertension 08/26/2019 TIA (transient ischemic attack) 08/26/2019 Hematuria 08/26/2019 A-fib 08/26/2019 Social History Tobacco Use Types Packs/Day Years Used Date Smoking Tobacco: Never Smokeless Tobacco: Never Alcohol Use Standard Drinks/Week Comments Yes 0 (1 standard drink = 0.6 oz pur e alcohol) occasionally Comments Unknown Sex and Gender Information Value Date Recorded Sex Assigned at Not on file Legal Sex Female 6:01 PM ASBESTOS SURVEYOR Gender Identity Not on file Sexual Orientation Not on file Last Filed Vital Signs Vital Sign Reading Time Taken Comments Blood Pressure 127/53 08/26/2019 3:00 PM ASBESTOS SURVEYOR Pulse 57 08/26/2019 3:00 PM ASBESTOS SURVEYOR Temperature 36.9 C (98.4 F) 08/26/2019 3:00 PM ASBESTOS SURVEYOR Respiratory Rate 18 08/26/2019 3:00 PM ASBESTOS SURVEYOR Oxygen Saturation 97% 08/26/2019 7:36 AM ASBESTOS SURVEYOR Inhaled Oxygen Concentration - - Weight 90.3 kg (199 lb) 08/25/2019 10:38 PM ASBESTOS SURVEYOR Height 162.6 cm (5' 4 ) 08/25/2019 10:38 PM ASBESTOS SURVEYOR Body Mass Index 34.16 08/25/2019 10:38 PM ASBESTOS SURVEYOR Plan of Treatment Health Maintenance Due Date Last Done Comments DEXA Bone Density 1940 Hepatitis C Virus (HCV) Screening 1940 TdaP Immunization 1940 Zoster Immunization (1 of 2) 1957 Respiratory Syncytial Virus (RSV) Immunization (Adult) (1 - 1-dose 75+ series) 2013 Influenza Immunization (#1) 2024 SARS-COV-2 Immunization (2023- season) 2024 07/25/2021, 12/17/2020, 11/19/2020 Pneumococcal Immunization (50+ years) Completed 05/01/2017, 04/17/2016 Pneumococcal Immunization Combined Discontinued 05/01/2017, 04/17/2016 Hepatitis B Immunization Aged Out No longer eligible based on patient's age to complete this topic Meningococcal Immunization (ACWY) Aged Out No longer eligible based on patient's age to complete this topic Rotavirus Immunization Aged Out No lo nger eligible based on patient's age to complete this topic Insurance [facility] MEDICARE Advance Directives * Full Code (Latest Code Status on File) Date Activated Date Inactivated Comments 08/25/2019 11:11 PM 08/26/2019 7:48 PM CPR-Full Tr eatment: FULL ARREST: Attempt Resuscitation/CPR wit intubation and mechanical ventilation. PRE-ARREST: Use entire range of life support measures to stabilize the patient. Care Teams Program Advocate Relationship Specialty Start Date End Date Hui Veras PA PCP - General Family Medicine 08/26/19
[2024-10-29 18:19] LABS: Basophils Absolute Auto 0.1 K/mm3 (0.0-0.1); Basophils Percent Auto 0.5 % (0.2-1.2); Eosinophils Absolute Auto 0.1 K/mm3 (0-0.3); Eosinophils Percent Auto 0.7 % (0-4.4); Hematocrit 45.6 % (37.0-47.0); Hemoglobin 15.1 g/dL (12.0-15.0); Immature Granulocyte Absolute 0.08 K/mm3 (0.00-0.031); Immature Granulocyte Percent A 0.6 % (0-0.5); Lymphocytes Absolute Auto 3.09 K/mm3 (0.9-3.2); Lymphocytes Percent Auto 22.2 % (18.3-44.2); Mean Corpuscular HGB Conc 33.1 g/dl (32-36); Mean Corpuscular Volume 87.7 fl (80-100); Mean Platelet Volume 9.9 fl (7.4-10.4); Monocytes Absolute Auto 1.1 K/mm3 (0.1-0.6); Monocytes Percent Auto 7.6 % (2.6-8.5); Neutrophils Absolute Auto 9.5 K/mm3 (1.3-6.7); Neutrophils Percent Auto 68.4 % (45.5-73.1); Platelet Count Result 373 k/mm3 (150-375); Red Cell Distribution Width 14.3 % (11.5-14.5); White Blood Count 13.9 K/mm3 (4.5-10.0)
[2024-10-29 19:08] LABS: Alanine Aminotransferase 37 U/L (6-35); Alkaline Phosphatase 130 U/L (38-126); Anion Gap 14 mmol/L (4-12); Aspartate Amino Transferase 52 U/L (14-36); Bilirubin,Total 0.7 mg/dL (0.2-1.3); Blood Urea Nitrogen 31 mg/dL (7-17); Calcium 9.5 mg/dL (8.4-10.2); Carbon Dioxide 26 mmol/L (22-30); Chloride 98 mmol/L (98-107); Estimated Glomerular Filt Rate 59; Glucose 112 mg/dL (65-110); Potassium 3.3 mmol/L (3.4-5.0); Sodium 138 mmol/L (137-145)
== END 2024-10-29 15:09 | disposition home or self-care (01) ==
LOC: ANHGOSHLAB 15:10
PROVIDERS: PCP Family Medicine; Visit Provider Family Medicine
DX: H92.03 Otalgia, bilateral (principal); E78.5 Hyperlipidemia, unspecified; E03.9 Hypothyroidism, unspecified; I10 Essential (primary) hypertension; E55.9 Vitamin D deficiency, unspecified; E78.41 Elevated Lipoprotein(a)
CPT/HCPCS: 36415; 80053; 85025

== ENCOUNTER 2024-11-12 12:12 | Emergency (ER) | payer MEDICARE, SELFPAY ==
--- NOTE | ~2024-11-12 | XR_ITS ---
XR chest 1V 11/12/2024 14:05 Indication: Shortness of breath Procedure: AP view of the chest Comparison: 10/29/2024 Findings: Borderline heart size. No focal air space disease, pulmonary edema, pleural effusion or kavitha pected pneumothorax. Severe degenerative changes of the glenohumeral joints. Multiple healed left rib fractures. Impression: 1: No acute cardiopulmonary disease. Reviewed, dictated and finalized at location B. AND INSURANCE CONSULTANT Impression: 1: No acute cardiopulmonary disease.
--- OUTSIDE RECORDS SUMMARY | 2024-11-12 12:14 | XMS_ITS | Clinical Summary ---
Author Organization Unknown Care Team Providers Care Linen Room Worker Name Role Phone NIR RUEDA DO Unavailable Unavailable LUIS ALBERTO MARSHALL, CHEY Unavailable Unavailnoreen e Payers Payer Name Policy Type Policy Number Effective Date Expira tion Date MEDICARE.[facility] [id number] Problems Condition Name Condition Details Condition Category Status Onset Date Resolution Date Last Treatment Date Treating Clinician Comments RESPIRATORY SYNCYTIAL VIRUS PNEUMONIA Active 10-30 00:00: 00 ACUTE UPPER RESPIRATORY INFECTION, UNSPECIFIED Active 10-30 00:00: 00 FLU DUE TO OTH IDENT INFLUENZA VIRUS W OTH RESP MANIFEST Active 10-30 00:00: 00 ACUTE RESPIRATORY FAILURE WITH HYPOXIA Active 10-30 00:00: 00 PAROXYSMAL ATRIAL FIBRILLATION Active 10-30 00:00: 00 ESSENTIAL (PRIMARY) HYPERTENSION Active 10-30 00:00: 00 ATHSCL HEART DISEASE OF [place] CORONARY ARTERY W/O ANG PCTRS Active 10-30 00:00: 00 UNSPECIFIED ASTHMA, UNCOMPLICATE D Active 10-30 00:00: 00 HYPOTENSION, UNSPECIFIED Active 10-30 00:00: 00 DEPRESSION, UNSPECIFIED Active 10-30 00:00: 00 HYPOTHYROIDI SM, UNSPECIFIED Active 10-30 00:00: 00 GASTRO-ESOPH AGEAL REFLUX DISEASE WITHOUT ESOPHAGITIS Active 10-30 00:00: 00 MIXED HYPERLIPIDEM IA Active 10-30 00:00: 00 SENSORINEURA L HEARING LOSS, BILATERAL Active 10-30 00:00: 00 DEPENDENCE ON SUPPLEMENTAL OXYGEN Active 10-30 00:00: 00 HORMONE REPLACEMENT THERAPY Active 10-30 00:00: 00 [facility] (CURRENT) USE OF SYSTEMIC STEROIDS Active 10-30 00:00: 00 [facility] (CURRENT) USE OF ASPIRIN Active 10-30 00:00: 00 [facility] (CURRENT) USE OF INHALED STEROIDS Active 10-30 00:00: 00 PERSONAL HISTORY OF PULMONARY EMBOLISM Active 09-24 00:00: 00 PERSONAL HISTORY OF OTHER VENOUS THROMBOSIS AND EMBOLISM Active 09-24 00:00: 00 PNEUMONIA, UNSPECIFIED ORGANISM Active 11-07 00:00: 00 Allergies, Adverse Reactions, Alerts Allergy Name Allergy Type Status Severity Reaction(s) Onset Date Inactive Date Treating Clinician Comments MOLD Propensity to adverse reactions Active 11-06 10:10: 27 PRAVASTATIN Propensity to adverse reactions Active 11-06 10:10: 36 DEMEROL Propensity to adverse reactions Active 11-06 10:10: 51 DOXYCYCLINE Propensity to adverse reactions Active 11-06 10:11: 00 Vital Signs Vital Name Observation Time Observation Value Commen ts Temperature 2024-11-10 11:19:00.000 96.9 [degF] Temperature 2024-11-07 10:05:00.000 97.5 [degF] Temperature 2024-11-06 10:47:00.000 97 [degF] BMI (%) 2024-11-06 10:33:05.000 39 kg/m2 Height 2024-11-06 10:33:00.000 60 [in_us] Pulse 2024-11-10 11:19:00.000 71 /min Pulse 2024-11-07 10:05:00.000 64 /min Pulse 2024-11-06 10:47:00.000 72 /min O2 Saturation (%) 2024-11-10 11:19:00.000 92 % O2 Saturation (%) 2024-11-07 10:05:00.000 94 % O2 Saturation (%) 2024-11-06 10:47:00.000 97 % Respirations 2024-11-10 11:19:00.000 18 /min Respirations 2024-11-07 10:05:00.000 18 /min Respirations 2024-11-06 10:47:00.000 18 /min Weight (lbs) 2024-11-06 10:33:05.000 200 [lb_av] Systolic Blood Pressure 2024-11-10 11:19:00.000 124 mm [Hg] Systolic Blood Pressure 2024-11-07 10:05:00.000 124 mm [Hg] Systolic Blood Pressure 2024-11-06 10:47:00.000 118 mm [Hg] Diastolic Blood Pressure 2024-11-10 11:19:00.000 64 mm [Hg] Diastolic Blood Pressure 2024-11-07 10:05:00.000 68 mm [Hg] Diastolic Blood Pressure 2024-11-06 10:47:00.000 76 mm [Hg] Plan of Treatment Planned Activity Planned Date Details Comments Future Scheduled Test RN TO OBSE RVE, ASSESS, EVALUATE, AND DEVELOP AN INDIVIDUALIZED PLAN OF CARE. AGENCY MAY ACCEPT ORDERS FROM CONSULTING PHYSICIANS . RN TO OBSERVE AND ASSESS, ANNEALING FURNACE OPERATOR/FABRIC WORKER SUPERVISOR TO OBSERVE FOR RISK FOR FALLS AND INSTRUCT IN FALL PREVENTION, HOME SAFETY, MEDICATION MANAGEMENT, INFECTION PREVENTION, AND NUTRITION MANAGEMENT. RN/ANNEALING FURNACE OPERATOR/FABRIC WORKER SUPERVISOR NURSE MAY PERFORM O2 SATURATION LEVEL ON ADMISSION AND PRN FOR EVERY VISIT FOR RN TO ASSESS/ANNEALING FURNACE OPERATOR TO OBSERVE PATIENT, WITH NOTIFICATION TO THE PHYSICIAN IF SATURATION IS 90% IN THE ABSENCE OF MORE SPECIFIC PARAMETERS FROM THE PHYSICIAN. AGENCY MAY PERFORM A RESUMPTION OF CARE VISIT FOLLOWING ANY HOSPITAL ADMISSION. RN/ANNEALING FURNACE OPERATOR/FABRIC WORKER SUPERVISOR TO MONITOR CO-MORBID CONDITIONS LISTED ON THE PLAN OF CARE AND ANY NEW CONDITIONS THAT PRESENT THEMSELVES DURING THIS EPISODE TO IDENTIFY CHANGES AND INTERVENE TO MINIMIZE COMPLICATIONS. [code = RN TO OBSERVE, ASSESS, EVALUATE, AND DEVELOP AN INDIVIDUALIZED PLAN OF CARE. AGENCY MAY ACCEPT ORDERS FROM CONSULTING PHYSICIANS . RN TO OBSERVE AND ASSESS, ANNEALING FURNACE OPERATOR/FABRIC WORKER SUPERVISOR TO OBSERVE FOR RISK FOR FALLS AND INSTRUCT IN FALL PREVENTION, HOME SAFETY, MEDICATION MANAGEMENT, INFECTION PREVENTION, AND NUTRITION MANAGEMENT. RN/ANNEALING FURNACE OPERATOR/FABRIC WORKER SUPERVISOR NURSE MAY PERFORM O2 SATURATION LEVEL ON ADMISSION AND PRN FOR EVERY VISIT FOR RN TO ASSESS/ANNEALING FURNACE OPERATOR TO OBSERVE PATIENT, WITH NOTIFICATION TO THE PHYSICIAN IF SATURATION IS 90% IN THE ABSENCE OF MORE SPECIFIC PARAMETERS FROM THE PHYSICIAN. AGENCY MAY PERFORM A RESUMPTION OF CARE VISIT FOLLOWING ANY HOSPITAL ADMISSION. RN/ANNEALING FURNACE OPERATOR/FABRIC WORKER SUPERVISOR TO MONITOR CO-MORBID CONDITIONS LISTED ON THE PLAN OF CARE AND ANY NEW CONDITIONS THAT PRESENT THEMSELVES DURING THIS EPISODE TO IDENTIFY CHANGES AND INTERVENE TO MINIMIZE COMPLICATIONS.] Future Scheduled Test MEDICATION MANAGEMENT; RN/ANNEALING FURNACE OPERATOR/FABRIC WORKER SUPERVISOR TO REVIEW MEDICATIONS FOR INTERACTIONS, EFFECTIVENESS OF DRUG THERAPY, AND SIGNS/SYMPTOMS OF ADVERSE REACTIONS. MAY INSTRUCT AND REINFORCE MEDICATION TEACHING RELATED TO THE USE OF MEDICATIONS, DOSAGE, FREQUENCY, PURPOSE, SIDE EFFECTS, AND TO REPORT COMPLICATIONS. [code = MEDICATION MANAGEMENT; RN/ANNEALING FURNACE OPERATOR/FABRIC WORKER SUPERVISOR TO REVIEW MEDICATIONS FOR INTERACTIONS, EFFECTIVENESS OF DRUG THERAPY, AND SIGNS/SYMPTOMS OF ADVERSE REACTIONS. MAY INSTRUCT AND REINFORCE MEDICATION TEACHING RELATED TO THE USE OF MEDICATIONS, DOSAGE, FREQUENCY, PURPOSE, SIDE EFFECTS, AND TO REPORT COMPLICATIONS.] Future Scheduled Test RISK FOR H OSPITALIZATION; RN TO ASSESS/TEACH, FABRIC WORKER SUPERVISOR/ANNEALING FURNACE OPERATOR TO OBSERVE/TEACH PATIENT/CAREGIVER ON RISK FOR HOSPITALIZATION/EMERGENCY ROOM VISITS, TEACH SIGNS AND SYMPTOMS THAT PUT PATIENT AT RISK, WHEN TO NOTIFY NURSE/PHYSICIAN OF COMPLICATIONS/DECLINE, AND WHEN TO CALL 911. [code = RISK FOR HOSPITALIZATION; RN TO ASSESS/TEACH, FABRIC WORKER SUPERVISOR/ANNEALING FURNACE OPERATOR TO OBSERVE/TEACH PATIENT/CAREGIVER ON RISK FOR HOSPITALIZATION/EMERGENCY ROOM VISITS, TEACH SIGNS AND SYMPTOMS THAT PUT PATIENT AT RISK, WHEN TO NOTIFY NURSE/PHYSICIAN OF COMPLICATIONS/DECLINE, AND WHEN TO CALL 911.] Future Scheduled Test CARDIOVASC ULAR SYSTEM; RN TO ASSESS/TEACH, ANNEALING FURNACE OPERATOR/FABRIC WORKER SUPERVISOR TO OBSERVE/TEACH RELATED TO ALTERED CARDIOVASCULAR STATUS TO MINIMIZE COMPLICATIONS AND REDUCE HOSPITALIZATION. [code = CARDIOVASCULAR SYSTEM; RN TO ASSESS/TEACH, ANNEALING FURNACE OPERATOR/FABRIC WORKER SUPERVISOR TO OBSERVE/TEACH RELATED TO ALTERED CARDIOVASCULAR STATUS TO MINIMIZE COMPLICATIONS AND REDUCE HOSPITALIZATION.] Future Scheduled Test HYPERTENSI ON MANAGEMENT; RN TO ASSESS AND TEACH, ANNEALING FURNACE OPERATOR/FABRIC WORKER SUPERVISOR TO OBSERVE AND TEACH WARNING SIGNS AND SYMPTOMS TO AVOID HOSPITALIZATION. [code = HYPERTENSION MANAGEMENT; RN TO ASSESS AND TEACH, ANNEALING FURNACE OPERATOR/FABRIC WORKER SUPERVISOR TO OBSERVE AND TEACH WARNING SIGNS AND SYMPTOMS TO AVOID HOSPITALIZATION.] Future Scheduled Test ARRHYTHMIA MANAGEMENT; RN TO ASSESS AND TEACH, ANNEALING FURNACE OPERATOR/FABRIC WORKER SUPERVISOR TO OBSERVE AND TEACH WARNING SIGNS AND SYMPTOMS TO AVOID HOSPITALIZATION. [code = ARRHYTHMIA MANAGEMENT; RN TO ASSESS AND TEACH, ANNEALING FURNACE OPERATOR/FABRIC WORKER SUPERVISOR TO OBSERVE AND TEACH WARNING SIGNS AND SYMPTOMS TO AVOID HOSPITALIZATION.] Future Scheduled Test RESPIRATOR Y SYSTEM MANAGEMENT; RN TO ASSESS AND TEACH, ANNEALING FURNACE OPERATOR/FABRIC WORKER SUPERVISOR TO OBSERVE AND TEACH RELATED TO ALTERED RESPIRATORY STATUS TO MINIMIZE COMPLICATIONS AND REDUCE HOSPITALIZATION. [code = RESPIRATORY SYSTEM MANAGEMENT; RN TO ASSESS AND TEACH, ANNEALING FURNACE OPERATOR/FABRIC WORKER SUPERVISOR TO OBSERVE AND TEACH RELATED TO ALTERED RESPIRATORY STATUS TO MINIMIZE COMPLICATIONS AND REDUCE HOSPITALIZATION.] Future Scheduled Test PNEUMONIA MANAGEMENT; RN TO ASSESS AND TEACH, ANNEALING FURNACE OPERATOR/FABRIC WORKER SUPERVISOR TO OBSERVE AND TEACH SIGNS OF PNEUMONIA EXACERBATION AND PROVIDE EARLY INTERVENTIONS TO MINIMIZE RISK OF HOSPITALIZATION. [code = PNEUMONIA MANAGEMENT; RN TO ASSESS AND TEACH, ANNEALING FURNACE OPERATOR/FABRIC WORKER SUPERVISOR TO OBSERVE AND TEACH SIGNS OF PNEUMONIA EXACERBATION AND PROVIDE EARLY INTERVENTIONS TO MINIMIZE RISK OF HOSPITALIZATION.] Future Scheduled Test PAIN MANAG EMENT; RN TO ASSESS AND TEACH, FABRIC WORKER SUPERVISOR/ANNEALING FURNACE OPERATOR TO OBSERVE AND TEACH AND PROVIDE EDUCATION ON PAIN MANAGEMENT TECHNIQUES. [code = PAIN MANAGEMENT; RN TO ASSESS AND TEACH, FABRIC WORKER SUPERVISOR/ANNEALING FURNACE OPERATOR TO OBSERVE AND TEACH AND PROVIDE EDUCATION ON PAIN MANAGEMENT TECHNIQUES.] Future Scheduled Test GENITOURIN MENDOZA MANAGEMENT; RN TO ASSESS AND TEACH, ANNEALING FURNACE OPERATOR/FABRIC WORKER SUPERVISOR TO OBSERVE AND TEACH RELATED TO ALTERED GENITOURINARY STATUS TO MINIMIZE COMPLICATIONS AND REDUCE HOSPITALIZATION. [code = GENITOURINARY MANAGEMENT; RN TO ASSESS AND TEACH, ANNEALING FURNACE OPERATOR/FABRIC WORKER SUPERVISOR TO OBSERVE AND TEACH RELATED TO ALTERED GENITOURINARY STATUS TO MINIMIZE COMPLICATIONS AND REDUCE HOSPITALIZATION.] Future Scheduled Test URINARY CU LTURE AND SENSITIVITY PROTOCOL UP TO 2 PRN RN/ANNEALING FURNACE OPERATOR/FABRIC WORKER SUPERVISOR VISITS MAY BE PERFORMED FOR S/S OF UTI. RN TO ASSESS, ANNEALING FURNACE OPERATOR/FABRIC WORKER SUPERVISOR TO OBSERVE INITIATION OF UTI PROTOCOL. RN/FABRIC WORKER SUPERVISOR/ANNEALING FURNACE OPERATOR TO INSTRUCT PATIENT AND/OR CAREGIVER ON S/S OF UTI TO REPORT TO RN/ANNEALING FURNACE OPERATOR/FABRIC WORKER SUPERVISOR IF NEW OR WORSENING SYMPTOMS. DRINK PLENTY OF WATER THROUGHOUT THE DAY TO MAINTAIN HYDRATION (UNLESS CONTRAINDICATED.) URINATE WHEN THE URGE IS FELT, DO NOT WAIT. WASH GENITALS DAILY. WIPE FROM FRONT TO BACK AFTER HAVING A BOWEL MOVEMENT. RN/FABRIC WORKER SUPERVISOR/ANNEALING FURNACE OPERATOR TO OBTAIN UA WITH C/S VIA CLEAN CATCH URINE AND IF UNABLE TO OBTAIN MAY PERFORM AN IN AND OUT CATH. IF PATIENT HAS INDWELLING CATHETER MAY OBTAIN FROM SAMPLING PORT. NOTIFY PROVIDER OF RESULTS AND OBTAIN FURTHER ORDERS. [code = URINARY CULTURE AND SENSITIVITY PROTOCOL UP TO 2 PRN RN/ANNEALING FURNACE OPERATOR/FABRIC WORKER SUPERVISOR VISITS MAY BE PERFORMED FOR S/S OF UTI. RN TO ASSESS, ANNEALING FURNACE OPERATOR/FABRIC WORKER SUPERVISOR TO OBSERVE INITIATION OF UTI PROTOCOL. RN/FABRIC WORKER SUPERVISOR/ANNEALING FURNACE OPERATOR TO INSTRUCT PATIENT AND/OR CAREGIVER ON S/S OF UTI TO REPORT TO RN/ANNEALING FURNACE OPERATOR/FABRIC WORKER SUPERVISOR IF NEW OR WORSENING SYMPTOMS. DRINK PLENTY OF WATER THROUGHOUT THE DAY TO MAINTAIN HYDRATION (UNLESS CONTRAINDICATED.) URINATE WHEN THE URGE IS FELT, DO NOT WAIT. WASH GENITALS DAILY. WIPE FROM FRONT TO BACK AFTER HAVING A BOWEL MOVEMENT. RN/FABRIC WORKER SUPERVISOR/ANNEALING FURNACE OPERATOR TO OBTAIN UA WITH C/S VIA CLEAN CATCH URINE AND IF UNABLE TO OBTAIN MAY PERFORM AN IN AND OUT CATH. IF PATIENT HAS INDWELLING CATHETER MAY OBTAIN FROM SAMPLING PORT. NOTIFY PROVIDER OF RESULTS AND OBTAIN FURTHER ORDERS.] Future Scheduled Test URINARY IN CONTINENCE MANAGEMENT; RN TO ASSESS AND TEACH, ANNEALING FURNACE OPERATOR/LVNTO OBSERVE AND TEACH MANAGEMENT OF URINARY INCONTINENCE. TEACH/INSTRUCT ON PREVENTING INFECTION AND SKIN BREAKDOWN. RN/ANNEALING FURNACE OPERATOR/FABRIC WORKER SUPERVISOR MAY INSTRUCT IN BLADDER TRAINING PROGRAM INDICATED. [code = URINARY INCONTINENCE MANAGEMENT; RN TO ASSESS AND TEACH, ANNEALING FURNACE OPERATOR/LVNTO OBSERVE AND TEACH MANAGEMENT OF URINARY INCONTINENCE. TEACH/INSTRUCT ON PREVENTING INFECTION AND SKIN BREAKDOWN. RN/ANNEALING FURNACE OPERATOR/FABRIC WORKER SUPERVISOR MAY INSTRUCT IN BLADDER TRAINING PROGRAM INDICATED.] Future Scheduled Test URINARY TR ACT INFECTION MANAGEMENT; RN/FABRIC WORKER SUPERVISOR/ANNEALING FURNACE OPERATOR TO PROVIDE SKILLED TEACHING AND SELF- CARE MANAGEMENT RELATED TO UTI TO MINIMIZE COMPLICATIONS AND REDUCE THE RISK OF HOSPITALIZATION. [code = URINARY TRACT INFECTION MANAGEMENT; RN/FABRIC WORKER SUPERVISOR/ANNEALING FURNACE OPERATOR TO PROVIDE SKILLED TEACHING AND SELF- CARE MANAGEMENT RELATED TO UTI TO MINIMIZE COMPLICATIONS AND REDUCE THE RISK OF HOSPITALIZATION.] Future Scheduled Test URINARY MO LECULAR TESTING PROTOCOL UP TO 2 PRN RN/ANNEALING FURNACE OPERATOR/FABRIC WORKER SUPERVISOR VISITS MAY BE PERFORMED FOR S/S OF UTI. RN TO ASSESS, ANNEALING FURNACE OPERATOR/FABRIC WORKER SUPERVISOR TO OBSERVE INITIATION OF UTI PROTOCOL. RN/FABRIC WORKER SUPERVISOR/ANNEALING FURNACE OPERATOR TO INSTRUCT PATIENT AND/OR CAREGIVER ON S/S OF UTI TO REPORT TO RN/FABRIC WORKER SUPERVISOR/ANNEALING FURNACE OPERATOR IF NEW OR WORSENING SYMPTOMS. DRINK PLENTY OF WATER THROUGHOUT THE DAY TO MAINTAIN HYDRATION (UNLESS CONTRAINDICATED.) URINATE WHEN THE URGE IS FELT, DO NOT WAIT. WASH GENITALS DAILY. WIPE FROM FRONT TO BACK AFTER HAVING A BOWEL MOVEMENT. RN/FABRIC WORKER SUPERVISOR/ANNEALING FURNACE OPERATOR TO OBTAIN MOLECULAR URINE TESTING BY OPTION 1 OR OPTION 2 (OPTION 1) RN/FABRIC WORKER SUPERVISOR/ANNEALING FURNACE OPERATOR TO OBTAIN U/A WITH REFLEX TO UTI PANEL (MOLECULAR) VIA CLEAN CATCH URINE AND IF UNABLE TO OBTAIN MAY PERFORM AN IN AND OUT CATH. IF PATIENT HAS INDWELLING CATHETER MAY OBTAIN FROM SAMPLING PORT. (OPTION 2) RN/FABRIC WORKER SUPERVISOR/ANNEALING FURNACE OPERATOR TO OBTAIN UTI PANEL (MOLECULAR) VIA SWAB COLLECTION METHOD FROM ADULT BRIEF/DIAPER OR PAD IF PATIENT IS INCONTINENT. NOTIFY PROVIDER OF RESULTS AND OBTAIN FURTHER ORDERS. [code = URINARY MOLECULAR TESTING PROTOCOL UP TO 2 PRN RN/ANNEALING FURNACE OPERATOR/FABRIC WORKER SUPERVISOR VISITS MAY BE PERFORMED FOR S/S OF UTI. RN TO ASSESS, ANNEALING FURNACE OPERATOR/FABRIC WORKER SUPERVISOR TO OBSERVE INITIATION OF UTI PROTOCOL. RN/FABRIC WORKER SUPERVISOR/ANNEALING FURNACE OPERATOR TO INSTRUCT PATIENT AND/OR CAREGIVER ON S/S OF UTI TO REPORT TO RN/FABRIC WORKER SUPERVISOR/ANNEALING FURNACE OPERATOR IF NEW OR WORSENING SYMPTOMS. DRINK PLENTY OF WATER THROUGHOUT THE DAY TO MAINTAIN HYDRATION (UNLESS CONTRAINDICATED.) URINATE WHEN THE URGE IS FELT, DO NOT WAIT. WASH GENITALS DAILY. WIPE FROM FRONT TO BACK AFTER HAVING A BOWEL MOVEMENT. RN/FABRIC WORKER SUPERVISOR/ANNEALING FURNACE OPERATOR TO OBTAIN MOLECULAR URINE TESTING BY OPTION 1 OR OPTION 2 (OPTION 1) RN/FABRIC WORKER SUPERVISOR/ANNEALING FURNACE OPERATOR TO OBTAIN U/A WITH REFLEX TO UTI PANEL (MOLECULAR) VIA CLEAN CATCH URINE AND IF UNABLE TO OBTAIN MAY PERFORM AN IN AND OUT CATH. IF PATIENT HAS INDWELLING CATHETER MAY OBTAIN FROM SAMPLING PORT. (OPTION 2) RN/FABRIC WORKER SUPERVISOR/ANNEALING FURNACE OPERATOR TO OBTAIN UTI PANEL (MOLECULAR) VIA SWAB COLLECTION METHOD FROM ADULT BRIEF/DIAPER OR PAD IF PATIENT IS INCONTINENT. NOTIFY PROVIDER OF RESULTS AND OBTAIN FURTHER ORDERS.] Future Scheduled Test FALL REDUC TION MANAGEMENT; RN TO ASSESS AND OBSERVE, ANNEALING FURNACE OPERATOR/FABRIC WORKER SUPERVISOR TO OBSERVE FALL RISK FACTORS AND EDUCATE PATIENT/CAREGIVER ON STRATEGIES TO MINIMIZE THE RISK OF FALLING. [code = FALL REDUCTION MANAGEMENT; RN TO ASSESS AND OBSERVE, ANNEALING FURNACE OPERATOR/FABRIC WORKER SUPERVISOR TO OBSERVE FALL RISK FACTORS AND EDUCATE PATIENT/CAREGIVER ON STRATEGIES TO MINIMIZE THE RISK OF FALLING.] Future Scheduled Test ASTHMA MAN AGEMENT; RN TO ASSESS AND TEACH, ANNEALING FURNACE OPERATOR/FABRIC WORKER SUPERVISOR TO OBSERVE AND TEACH ASTHMA MANAGEMENT AND PROVIDE EARLY INTERVENTIONS TO MINIMIZE RISK OF HOSPITALIZATION [code = ASTHMA MANAGEMENT; RN TO ASSESS AND TEACH, ANNEALING FURNACE OPERATOR/FABRIC WORKER SUPERVISOR TO OBSERVE AND TEACH ASTHMA MANAGEMENT AND PROVIDE EARLY INTERVENTIONS TO MINIMIZE RISK OF HOSPITALIZATION] Future Scheduled Test PRN VISITS ; NUMBER OF RN/ANNEALING FURNACE OPERATOR/FABRIC WORKER SUPERVISOR VISITS: 1 RN/ANNEALING FURNACE OPERATOR/FABRIC WORKER SUPERVISOR TO PERFORM: RESPIRATORY MANAGEMENT FOR THE FOLLOWING REASONS: COMPLICATIONS [code = PRN VISITS; NUMBER OF RN/ANNEALING FURNACE OPERATOR/FABRIC WORKER SUPERVISOR VISITS: 1 RN/ANNEALING FURNACE OPERATOR/FABRIC WORKER SUPERVISOR TO PERFORM: RESPIRATORY MANAGEMENT FOR THE FOLLOWING REASONS: COMPLICATIONS ] Future Scheduled Test PHYSICAL T HERAPIST TO EVALUATE FOR EVALUATION AND TREATMENT [code = PHYSICAL THERAPIST TO EVALUATE FOR EVALUATION AND TREATMENT ] Future Scheduled Test OCCUPATION AL THERAPIST TO EVALUATE FOR EVALUATION AND TREATMENT [code = OCCUPATIONAL THERAPIST TO EVALUATE FOR EVALUATION AND TREATMENT ] Future Scheduled Test AGENCY MAY PERFORM A RESUMPTION OF CARE VISIT FOLLOWING ANY HOSPITAL ADMISSION. OT TO EVALUATE, OBSERVE / ASSESS, AND MONITOR, PROGRAM DIRECTOR CABLE TELEVISION TO OBSERVE AND MONITOR, PROVIDE SKILLED THERAPEUTIC INTERVENTION, ACTIVITY, EDUCATION, AND TRAINING TO ADDRESS SAFETY AND INDEPENDENCE OF ADLS AND FUNCTIONAL TRANSFERS IN HOME ENVIRONMENT. ACTIVITIES OF DAILY LIVING (OT/PROGRAM DIRECTOR CABLE TELEVISION) TOILET TRANSFER (OT/PROGRAM DIRECTOR CABLE TELEVISION) BATH/SHOWER TRANSFER (OT/JOSÉ) THERAPEUTIC EXERCISE (OT/PROGRAM DIRECTOR CABLE TELEVISION) ENERGY CONSERVATION/ACTIVITY DEMAND (OT/JOSÉ) OT/PROGRAM DIRECTOR CABLE TELEVISION TO MONITOR AND EDUCATE ON OXYGEN SATURATION DURING ADLS/IADLS, NOTIFY PHYSICIAN AND/OR THE RN CLINICAL HARP REGULATOR FOR PHYSICIAN NOTIFICATION AND IF O2 SATS BELOW 90% AFTER 10 MIN OF REST. OT / PROGRAM DIRECTOR CABLE TELEVISION TO IDENTIFY FALL RISK FACTORS; EDUCATE THE PATIENT/CAREGIVER ON WAYS TO REDUCE FALL RISK FACTORS AND ESTABLISH HOME EXERCISE PROGRAM TO MINIMIZE FALL RISK. MAY TEACH THE PATIENT FLOOR RECOVERY WHEN CLINICALLY APPROPRIATE. OT/JOSÉ TO EDUCATE ON HYPERTENSION SELF-MANAGEMENT OT/JOSÉ TO EDUCATE ON ATRIAL FIBRILLATION SELF-MANAGEMENT. [code = AGENCY MAY PERFORM A RESUMPTION OF CARE VISIT FOLLOWING ANY HOSPITAL ADMISSION. OT TO EVALUATE, OBSERVE / ASSESS, AND MONITOR, JOSÉ TO OBSERVE AND MONITOR, PROVIDE SKILLED THERAPEUTIC INTERVENTION, ACTIVITY, EDUCATION, AND TRAINING TO ADDRESS SAFETY AND INDEPENDENCE OF ADLS AND FUNCTIONAL TRANSFERS IN HOME ENVIRONMENT. ACTIVITIES OF DAILY LIVING (OT/JOSÉ) TOILET TRANSFER (OT/JOSÉ) BATH/SHOWER TRANSFER (OT/JOSÉ) THERAPEUTIC EXERCISE (OT/PROGRAM DIRECTOR CABLE TELEVISION) ENERGY CONSERVATION/ACTIVITY DEMAND (OT/PROGRAM DIRECTOR CABLE TELEVISION) OT/PROGRAM DIRECTOR CABLE TELEVISION TO MONITOR AND EDUCATE ON OXYGEN SATURATION DURING ADLS/IADLS, NOTIFY PHYSICIAN AND/OR THE RN CLINICAL HARP REGULATOR FOR PHYSICIAN NOTIFICATION AND IF O2 SATS BELOW 90% AFTER 10 MIN OF REST. OT / PROGRAM DIRECTOR CABLE TELEVISION TO IDENTIFY FALL RISK FACTORS; EDUCATE THE PATIENT/CAREGIVER ON WAYS TO REDUCE FALL RISK FACTORS AND ESTABLISH HOME EXERCISE PROGRAM TO MINIMIZE FALL RISK. MAY TEACH THE PATIENT FLOOR RECOVERY WHEN CLINICALLY APPROPRIATE. OT/JOSÉ TO EDUCATE ON HYPERTENSION SELF-MANAGEMENT OT/PROGRAM DIRECTOR CABLE TELEVISION TO EDUCATE ON ATRIAL FIBRILLATION SELF-MANAGEMENT.] Goal Patient Goal - TO FEEL BRIGIDO R Goal Provider Goal - A PLAN OF CARE WILL BE ESTABLISHED THAT MEETS THE PATIENTS NEEDS. PATIENT WILL DEMONSTRATE OXYGEN SATURATION WITHIN NORMAL LIMITS OR PATIENTS OPTIMAL LEVEL ESTABLISHED BY THE PHYSICIAN THROUGHOUT CARE. CHANGES TO CO-MORBID CONDITIONS AND ANY NEW CONDITIONS WILL BE IDENTIFIED AND REPORTED TO THE PHYSICIAN. Goal Provider Goal - PATIENT/CAREGIVER TO VERBALIZE, AND CONSISTENTLY DEMONSTRATE EFFECTIVE, SAFE MANAGEMENT OF MEDICATION INCLUDING KNOWLEDGE OF EFFECTIVENESS, POTENTIAL SIDE EFFECTS AND DRUG REACTIONS AND WHEN TO CONTACT THE APPROPRIATE CARE PROVIDER. PATIENT/CAREGIVER WILL BE ABLE TO VERBALIZE UNDERSTANDING OF MEDICATION REGIMEN AND ACCURATELY TAKE MEDICATIONS PRESCRIBED WITHOUT ADVERSE EFFECTS BY EOE Goal Provider Goal - PATIENT/CAREGIVER WILL VERBALIZE UNDERSTANDING OF SIGNS AND SYMPTOMS THAT PUT THE PATIENT AT RISK FOR HOSPITALIZATION /EMERGENCY ROOM VISITS, WHEN TO NOTIFY NURSE/PHYSICIAN OF COMPLICATIONS/DECLINE AND WHEN TO CALL 911. Goal Provider Goal - PATIENT / CAREGIVER WILL VERBALIZE/DEMONSTRATE UNDERSTANDING OF MEASURES TO MANAGE ALTERED CARDIOVASCULAR STATUS BY EOE Goal Provider Goal - PATIENT / CAREGIVER WILL VERBALIZE/DEMONSTRATE AN ABILITY TO ADHERE TO SELF-MANAGEMENT OF HTN TO MINIMIZE COMPLICATIONS AND AVOID HOSPITALIZATION BY END OF EPISODE. Goal Provider Goal - PATIENT / CAREGIVER WILL VERBALIZE/DEMONSTRATE AN ABILITY TO ADHERE TO SELF-MANAGEMENT OF HEART ARRHYTHMIA TO MINIMIZE COMPLICATIONS AND AVOID HOSPITALIZATION BY END OF EPISODE. Goal Provider Goal - PATIENT / CAREGIVER WILL VERBALIZE/DEMONSTRATE UNDERSTANDING OF MEASURES TO MANAGE ALTERED RESPIRATORY STATUS BY END OF EPISODE. Goal Provider Goal - PATIENT / CAREGIVER WILL VERBALIZE/DEMONSTRATE AN ABILITY TO ADHERE TO PNEUMONIA SELF-MANAGEMENT TO MINIMIZE COMPLICATIONS AND AVOID HOSPITALIZATION BY END OF EPISODE. Goal Provider Goal - PATIENT / CAREGIVER WILL VERBALIZE / DEMONSTRATE UNDERSTANDING OF PAIN CONTROL MEASURES BY EOE Goal Provider Goal - PATIENT / CAREGIVER WILL VERBALIZE/DEMONSTRATE UNDERSTANDING OF MEASURES TO MANAGE ALTERED GENITOURINARY STATUS BY END OF EPISODE. Goal Provider Goal - PATIENT WILL DEMONSTRATE IMPROVEMENT IN S/S OF UTI TO AVOID HOSPITALIZATION. Goal Provider Goal - PATIENT/CAREGIVER WILL VERBALIZE/DEMONSTRATE UNDERSTANDING OF CARE AND MANAGEMENT OF URINARY INCONTINENCE BY EOE Goal Provider Goal - PATIENT/CAREGIVER WILL VERBALIZE/DEMONSTRATE UNDERSTANDING OF CARE AND MANAGEMENT OF URINARY TRACT INFECTION BY EOE Goal Provider Goal - PATIENT WILL DEMONSTRATE IMPROVEMENT IN S/S OF UTI TO AVOID HOSPITALIZATION. Goal Provider Goal - PATIENT/CAREGIVER WILL VERBALIZE/DEMONSTRATE UNDERSTANDING OF FALL RISK FACTORS AND IMPLEMENT STRATEGIES TO MINIMIZE FALL RISK. PATIENT/CAREGIVER WILL VERBALIZE/DEMONSTRATE AN ABILITY TO ADHERE TO FALL REDUCTION SELF-MANAGEMENT AND LIFE-STYLE CHANGES BY EOE Goal Provider Goal - PATIENT/CAREGIVER WILL VERBALIZE/ DEMONSTRATE AN ABILITY TO ADHERE TO SELF-MANAGEMENT OF ASTHMA TO MINIMIZE COMPLICATIONS AND AVOID HOSPITALIZATIONS BY END OF EPISODE. Goal Provider Goal - Goal Provider Goal - Goal Provider Goal - Goal Provider Goal - OT LTG: PATIENT WILL DEMONSTRATE IMPROVEMENT IN MODIFIED [place] INDEX SCORE FROM 91 TO 4 INDICATING DECREASED DEPENDENCY ON CAREGIVER ASSISTANCE WITH ACTIVITIES OF DAILY LIVING WITHIN 3 WEEKS. OT STG: PATIENT WILL SAFELY COMPLETE TOILET TRANFERS WITH SUP WITH USE OF AE NEEDED. OT LTG: PATIENT WILL DEMONSTRATE IMPROVED ABILITY TO PERFORM TOILET TRANSFERS TO REDUCE FALL RISK AND RISK OF INCONTINENCE AND UTI DEVELOPMENT FROM SBA TO MOD I WITHIN 3 WEEKS. OT LTG: PATIENT WILL DEMONSTRATE IMPROVED ABILITY AND SAFETY TO PERFORM BATH/SHOWER TRANSFER FROM SBA TO SUP WITHIN 3 WEEKS. OT LTG: PATIENT WILL DEMONSTRATE IMPROVED BUE MUSCLE STRENGTH EVIDENCED BY AN IMPROVEMENT IN MMT/FUNCTIONAL STRENGTH FROM 3+/5 TO 4-/5 WITHIN 3 WEEKS IN ORDER TO COMPLETE ADLS AND FUNCTIONAL TRANSFERS. OT LTG: PATIENT WILL DEMO/REPORT 2-3 ECT DURING FUNCTIONAL PERFORMANCE FOR IMPROVED HOME SAFETY WITHIN 3 WEEKS. OT LTG: PATIENT WILL MAINTAIN OXYGEN SATURATION WITHIN PHYSICIAN ORDERED PARAMETERS THROUGHOUT THE EPISODE OF CARE. OT LTG: PATIENT/CAREGIVER WILL BE ABLE TO IMPLEMENT RECOMMENDATIONS SPECIFIC TO FALL REDUCTION FOR IMPROVED ADL/IADL COMPLETION AND HOME SAFETY BY END OF EPISODE. OT LTG: PATIENT WILL BE INDEPENDENT WITH IMPLEMENTATION OF HEP WITHIN 3 WEEKS. OT GOAL: PATIENT/CAREGIVER WILL BE ABLE TO IDENTIFY SIGNS OF EXACERBATION OF HYPERTENSION AND WILL VERBALIZE/DEMONSTRATE AN ABILITY TO ADHERE TO HYPERTENSION SELF-MANAGEMENT AND LIFE-STYLE CHANGES BY END OF EPISODE . OT GOAL: PATIENT/CAREGIVER WILL BE ABLE TO IDENTIFY SIGNS OF ATRIAL FIBRILLATION EXACERBATION AND WILL VERBALIZE/DEMONSTRATE AN ABILITY TO ADHERE TO ATRIAL FIBRILLATION SELF-MANAGEMENT AND LIFE-STYLE CHANGES BY END OF EPISODE. Encounters Start Date/Time End Date/Time Encounter Type Admission Type Attending [facility] Care Department Encounter ID Discharge Date Discharge Status Discharge Condition Discharge Reason Percent Goals Met 2024-11-06 00:00:00 2025-01-04 00:00:00 Outpatient NEW ADMISSION [facility] [id number]
--- OUTSIDE RECORDS SUMMARY | 2024-11-12 12:14 | XMS_ITS | Clinical Summary ---
Author Organization [facility] Address [address] [place] [address] Care Team Providers Care Clinical Quality Analyst Name Role Phone Clarisse Kenny MD Unavailable [phone] Ken Mckeon MD Unavailable [phone] Kiana Read NP Unavailable [phone] Rosario Sexton DO Primary Care Provider + [...] 1 tablet every day by oral route. 11/30/19 19 Active metoprolol XL (TOPROL-XL) 50 mg 24 hr tablet metoprolol succinate ER 50 mg tablet,extende d release 24 hr Take 1 tablet every day by oral route. 07/24/20 18 Active hydroCHLOROthi azide (HYDRODIURIL) 25 mg tablet daily 01/23/20 18 Active levothyroxine (SYNTHROID) 75 mcg tablet Take 1 tablet (75 mcg total) by mouth daily 05/23/20 19 Active ferrous sulfate 325 mg (65 mg of elemental iron) tablet Take 1 tablet (325 mg total) by mouth daily 12/05/19 18 Active cyanocobalamin (Vitamin B-12) 1,000 mcg tablet Take 1 tablet (1,000 mcg total) by mouth daily 12/05/19 18 Active niacin 500 mg tablet daily 12/08/19 18 Active fluticasone propion-salmet Jacek (ADVAIR DISKUS) 250-50 mcg/dose diskus inhaler Wixela Inhub 250 mcg-50 mcg/dose powder for inhalation Inhale 1 inhalation twice a day by inhalation route. 07/08/20 18 Active magnesium gluconate 200 mg tabletIndicati ons:hypomagnes emia Take 1 tablet (200 mg total) by mouth 10/01/19 20 Active calcium-vitami n D3-vitamin K 500-500-40 mg-unit-mcg tablet,chewabl e Take by mouth 10/01/[address] (PROTONIX) 20 mg EC tablet Take 1 tablet (20 mg total) by mouth daily Active lisinopriL (PRINIVIL,ZEST RIL) 30 mg tablet Take 1 tablet (30 mg total) by mouth daily 90 tablet 1 01/20/20 Active aspirin 81 mg enteric coated tablet aspirin 81 mg tablet,delayed release Take 1 tablet every day by oral route. 09/05/20 19 Active rosuvastatin (CRESTOR) 40 mg tablet Take 1 tablet (40 mg total) by mouth daily 09/09/20 22 Active fluticasone propionate (FLONASE) 50 mcg/actuation nasal spray Administer 1 spray into each nostril daily 1 each 11/04/19 25 Active guaiFENesin (ROBITUSSIN) syrup 100 mg/5 mL Take 10 mL (200 mg total) by mouth every 4 (four) hours as needed for cough or congestion 120 mL 11/03/19 25 Active predniSONE (DELTASONE) 10 mg tablet Take 3 tablets (30 mg) by mouth daily for 3 days, THEN 2 tablets (20 mg) daily for 3 days, THEN 1 tablet (10 mg) daily for 3 days. 18 tablet 11/03/19 25 025 Active fluticasone propionate (FLONASE) 50 mcg/actuation nasal spray Administer 1 spray into each nostril daily 1 each 11/04/19 25 025 Discontinued guaiFENesin (ROBITUSSIN) syrup 100 mg/5 mL Take 10 mL (200 mg total) by mouth every 4 (four) hours as needed for cough or congestion 120 mL 11/03/19 25 025 Discontinued predniSONE (DELTASONE) 10 mg tablet Take 3 tablets (30 mg) by mouth daily for 3 days, THEN 2 tablets (20 mg) daily for 3 days, THEN 1 tablet (10 mg) daily for 3 days. 18 tablet 11/03/19 25 025 Discontinued Active Problems Problem Noted Date Diagnosed Date Pneumonia due to infectious agent 10/30/2024 Community acquired pneumonia 10/29/2024 Dizziness and giddiness 04/21/2022 Sensorineural hearing loss [...] atrial fibrillation 07/21/2020 04/09/2023 Chronic anticoagulation 04/21/201603/24 Encounters Date Type Department Care Team Description 10/29/2024 8:23 PM INVESTMENT BANKING MANAGER - 11/03/2024 12:40 PM INVESTMENT BANKING MANAGER Hospital Encounter [place] [address] Med [address] [place] [id number] Markus Prado MD Sada, MD Jamar Vázquez, Pavel Staley MD Community acquired pneumonia (Primary Dx); RSV (acute bronchiolitis due to respiratory syncytial virus); Hypokalemia; Hypoxia; Pneumonia of both lungs due to infectious organism, unspecified part of lung; Overgrown toenails Discharge Disposition: Discharge to home, home health skilled care from Last 3 Months Surgical History Surgery Date Site/Laterality Comments TONSILLECTOMY [...] drink = 0.6 oz pur e alcohol) [facility] Utilities Answer Date Recorded In the past 12 months has th e Pay with a Tweet, gas, oil, or water Partigi threatened to shut off services in your home? No 10/30/2024 Social Connection and Isolat ion Panel [NHANES] Answer Date Recorded In a typical week, how many times do you talk on the phone with family, friends, or neighbors? More than three times a week 10/30/2024 How often do you get togethe r with friends or relatives? More than three times a week 10/30/2024 How often do you attend chur ch or bahai services? Never 10/30/2024 Do you belong to any clubs o r organizations such as voodoo groups, unions, fraternal or athletic groups, or school groups? No 10/30/2024 How often do you attend meet ings of the clubs or organizations you belong to? Never 10/30/2024 Are you , , di vorced, , never , or living with a partner? Never 10/30/2024 Overall Financial Resource Strain (CARDIA) Answe r Date Recorded How hard is it for you to pa y for the very basics like food, housing, medical care, and heating? Not very hard 10/30/2024 Hunger Vital Sign Answer Date Recorded Within the past 12 months, y ou worried that your food would run out before you got the money to buy more. Never true 10/30/19 25 Within the past 12 months, t he food you bought just didn't last and you didn't have money to get more. Never true 10/30/2024 PRAPARE - Transportation Answer Date Re corded In the past 12 months, has l ack of transportation kept you from medical appointments or from getting medications? No 02/2025 In the past 12 months, has l ack of transportation kept you from meetings, work, or from getting things needed for daily living? No 10/30/2024 Housing Stability Vital Sign Answer Nino e Recorded In the last 12 months, was t here a time when you were not able to pay the mortgage or rent on time? No 10/30/2024 In the past 12 months, how m any times have you moved where you were living? 0 10/30/2024 At any time in the past 12 m [facility], were you homeless or living in a residential (including now)? No 10/30/2024 Personal Safety Answer Date Recorded Have you ever been in or are you currently in a harmful physical or emotional relationship or is someone making you feel afraid or unsafe? Denies 10/29/2024 Comments Unknown Sex and Gender Information Value Date Recorded Sex Assigned at Not on file Legal Sex Female 9:01 AM INVESTMENT BANKING MANAGER Gender Identity Not on file Sexual Orientation Not on file Obstetrics History Last Filed Vital Signs Vital Sign Reading Time Taken Comments Blood Pressure 136/68 11/03/2024 6:18 AM INVESTMENT BANKING MANAGER Pulse 72 11/03/2024 9:00 AM INVESTMENT BANKING MANAGER Temperature 36.6 C (97.9 F) 11/03/2024 6:18 AM INVESTMENT BANKING MANAGER Respiratory Rate 18 11/03/2024 8:20 AM INVESTMENT BANKING MANAGER Oxygen Saturation 98% 11/03/2024 8:20 AM INVESTMENT BANKING MANAGER Inhaled Oxygen Concentration - - Weight 86.8 kg (191 lb 5.8 oz) 11/03/2024 6:00 A M INVESTMENT BANKING MANAGER Height 152.4 cm (5') 10/30/2024 12:28 PM INVESTMENT BANKING MANAGER Body Mass Index 37.37 10/30/2024 12:28 PM INVESTMENT BANKING MANAGER Plan of Treatment Health Maintenance Due Date Last Done Comments Depression Screening 1940 DTaP/Tdap/Td Vaccine (1 - Tdap) 1949 Hepatitis B Screening 1956 Zoster Vaccine (1 of 2) 1988 Well Visit 65+ 2003 Influenza Vaccine (#1) 2024 Fall Risk Assessment 11/03/2025 11/03/2024 Pneumococcal vaccine 65+ Completed 05/01/2017, 03/25 Procedures Procedure Name Priority Date/Time Associated Diagnosis Comments EGFR Routine 11/02/2024 8:00 AM INVESTMENT BANKING MANAGER BASIC METABOLIC PANEL Routine 11/02/2024 8:00 AM INVESTMENT BANKING MANAGER CBC WITHOUT DIFFERENTIAL Routine 11/02/2024 8:00 AM INVESTMENT BANKING MANAGER INCENTIVE SPIROMETRY RT Routine 11/02/2024 4:00 AM INVESTMENT BANKING MANAGER INCENTIVE SPIROMETRY RT Routine 11/02/2024 12:00 AM INVESTMENT BANKING MANAGER INCENTIVE SPIROMETRY RT Routine 11/01/2024 8:00 PM INVESTMENT BANKING MANAGER INCENTIVE SPIROMETRY RT Routine 11/01/2024 8:00 AM INVESTMENT BANKING MANAGER CBC WITHOUT DIFFERENTIAL Routine 11/01/2024 3:44 AM INVESTMENT BANKING MANAGER EGFR Routine 11/01/2024 3:40 AM INVESTMENT BANKING MANAGER BASIC METABOLIC PANEL Routine 11/01/2024 3:40 AM INVESTMENT BANKING MANAGER XR CHEST 1 VIEW IP Routine 10/31/2024 10:42 AM INVESTMENT BANKING MANAGER INCENTIVE SPIROMETRY RT Routine 10/31/2024 4:00 AM INVESTMENT BANKING MANAGER INCENTIVE SPIROMETRY RT Routine 10/31/2024 12:00 AM INVESTMENT BANKING MANAGER INCENTIVE SPIROMETRY RT Routine 10/30/2024 8:00 PM INVESTMENT BANKING MANAGER LEGIONELLA ANTIGEN, URINE Routine 10/30/2024 6:14 PM INVESTMENT BANKING MANAGER STREP PNEUMONIAE AG, URINE Routine 10/30/2024 6:14 PM INVESTMENT BANKING MANAGER INCENTIVE SPIROMETRY RT Routine 10/30/2024 8:02 AM INVESTMENT BANKING MANAGER EGFR Routine 10/30/2024 7:30 AM INVESTMENT BANKING MANAGER CBC WITHOUT DIFFERENTIAL Routine 10/30/2024 7:30 AM INVESTMENT BANKING MANAGER BASIC METABOLIC PANEL Routine 10/30/2024 7:30 AM INVESTMENT BANKING MANAGER INCENTIVE SPIROMETRY RT Routine 10/30/2024 4:00 AM INVESTMENT BANKING MANAGER INCENTIVE SPIROMETRY RT Routine 10/30/2024 1:13 AM INVESTMENT BANKING MANAGER INCENTIVE SPIROMETRY RT Routine 10/30/2024 1:13 AM INVESTMENT BANKING MANAGER INCENTIVE SPIROMETRY RT Routine 10/30/2024 1:13 AM INVESTMENT BANKING MANAGER BLOOD CULTURE STAT 10/29/2024 10:18 PM INVESTMENT BANKING MANAGER SEPSIS LACTATE WITH REFLEX STAT 10/29/2024 10:09 PM INVESTMENT BANKING MANAGER BLOOD CULTURE STAT 10/29/2024 10:09 PM INVESTMENT BANKING MANAGER URINALYSIS, MICROSCOPIC ONLY STAT 10/29/2024 8:43 PM INVESTMENT BANKING MANAGER URINALYSIS AND REFLEX TO MICROSCOPIC AND CULTURE STAT 10/29/2024 8:43 PM INVESTMENT BANKING MANAGER XR CHEST PA LATERAL 2 VIEWS ED 10/29/2024 7:11 PM INVESTMENT BANKING MANAGER INFLUENZA A/B, RSV, AND COVID-19 PCR STAT 10/29/2024 6:18 PM INVESTMENT BANKING MANAGER EGFR STAT 10/29/2024 6:16 PM INVESTMENT BANKING MANAGER DIFFERENTIAL AUTO STAT 10/29/2024 6:1 6 PM INVESTMENT BANKING MANAGER COMPREHENSIVE METABOLIC PANEL STAT 10/29/2024 6:16 PM INVESTMENT BANKING MANAGER CBC WITH AUTO DIFFERENTIAL STAT 10/29/2024 6:16 PM INVESTMENT BANKING MANAGER ECG 12-LEAD STAT 10/29/2024 6:03 PM INVESTMENT BANKING MANAGER from Last 3 Months Results * eGFR (11/02/2024 8:00 AM INVESTMENT BANKING MANAGER) eGFR 88 >=60 mL/min/1. 73 m2 Comment: Interpretive Data Reference Interval Normal >/= 90 mL/min/1.73m2 Mildly decreased* 60 - 89 mL/min/1.73m2 Mildly to moderately decreased 45 - 59 mL/min/1.73m2 Moderately to severely decreased 30 - 44 mL/min/1.73m2 Severely decreased 15 - 29 mL/min/1.73m2 Kidney Failure < 15 mL/min/1.73m2 *Relative to young adult level Estimated glomerular filtration rate is determined by the 2020 CKD-EPI equation recommended by the National Kidney Foundation (A Unifying Approach to GFR Estimation: Recommendations of the NKF-ASK Task Force on Reassessing the Inclusion of Race in Diagnosing Kidney Disease, JASN 202). The CKD-EPI equation should not be used for patients with unstable renal function and has not been validated in children and those over 70. Current interpretive data was last reviewed 2021. Testing performed by: [address] [address] Blood 11/02/2024 8:00 AM INVESTMENT BANKING MANAGER 11/02/2024 9:11 AM INVESTMENT BANKING MANAGER us Pavel Roldan MD LAB BLOOD ORDERABLES Fi nal Result M[facility] [address] [facility] Department [place] [address] * (ABNORMAL) CBC without differential (11/02/2024 8:00 AM INVESTMENT BANKING MANAGER) WBC 9.7 3.8 - 9.9 K/cumm Comment:Testing performed by : [address] [address] Hgb 12.9 11.9 - 15.5 g/dL MOOK GARAY Comment:Testing performed by : [address] [address] Hct 38.3 35.6 - 45.5 % MOOK GARAY Comment:Testing performed by : [address] [address] Plt 417(H) 150 - 400 K/cumm MOOK GARAY Comment:Testing performed by : [address] [address] MPV 9.4 9.1 - 12.3 fL MOOK GARAY Comment:Testing performed by : [address] [address] RBC 4.40 3.90 - 5.20 M/cumm MOOK GARAY Comment:Testing performed by : [address] [address] MCV 87.0 81.3 - 96.4 fL MOOK GARAY Comment:Testing performed by : [address] [address] MCH 29.3 27.1 - 33.3 pg MOOK GARAY Comment:Testing performed by : [address] [address] MCHC 33.7 32.3 - 35.7 g/dL MOOK GARAY Comment:Testing performed by : [address] [address] RDW CV 14.3 11.1 - 14.9 % MOOK GARAY Comment:Testing performed by : [address] [address] RDW SD 45.5 35.7 - 48.1 fL MOOK GARAY Comment:Testing performed by : [address] [address] NRBC abs 0.00 0.00 - 0.01 K/cumm MOOK GARAY Comment:Testing performed by : [address] [address] Blood 11/02/2024 8:00 AM INVESTMENT BANKING MANAGER 11/02/2024 9:11 AM INVESTMENT BANKING MANAGER us Pavel Roldan MD LAB BLOOD ORDERABLES Fi nal Result M[facility] [address] [facility] Department of Laboratories [place], [place] [id number] * (ABNORMAL) Basic metabolic panel (11/02/2024 8:00 AM INVESTMENT BANKING MANAGER) [facility] Sodium 140 135 - 145 mmol/L Comment:Testing performed by : [address] [address] Potassium, pl 3.9 3.3 - 4.9 mmol/L MOOK GARAY Comment: Hemolyzed; Potassium value may be falsely elevated by as much as 1.0 mmol/L. Suggest redraw and reanalysis. Testing performed by: [address] [address] Chloride 104 97 - 110 mmol/L MOOK GARAY Comment:Testing performed by : [address] [address] CO2 25 22 - 32 mmol/L MOOK GARAY Comment:Testing performed by : [address] [address] Anion gap 11 2 - 15 mmol/L MOOK GARAY Comment:Testing performed by : [address] [address] BUN 24 6 - 25 mg/dL MOOK Comment:Testing performed by : [address] [address] Creatinine 0.58(L) 0.60 - 1.10 mg/dL MOOK Comment:Testing performed by : [address] [address] Glucose 157 70 - 199 mg/dL MOOK Comment: Interpretive Data Fasting glucose >/= 126 mg/dl is diagnostic for diabetes. Fasting is defined as no caloric intake for at least 8 hours. Fasting glucose between 100 mg/dl to 125 mg/dl is diagnostic of prediabetes. In a patient with classic symptoms of hyperglycemia or hyperglycemic crisis, a random glucose >/= 200 mg/dl is diagnostic for diabetes. In the absence of unequivocal hyperglycemia, results should be confirmed by repeat testing. The classification and Diagnosis of Diabetes Diabetes Care 202; 46: S19-S40. Current interpretive data was last revised 2022. Testing performed by: [address] [address] Calcium 9.4 8.5 - 10.3 mg/dL MOOK Comment:Testing performed by : [address] [address] Blood 11/02/2024 8:00 AM INVESTMENT BANKING MANAGER 11/02/2024 9:11 AM INVESTMENT BANKING MANAGER us Pavel Roldan MD LAB BLOOD ORDERABLES Fi nal Result M[facility] [address] [facility] Department [place] [address] * CBC without differential (11/01/2024 3:44 AM INVESTMENT BANKING MANAGER) WBC 6.9 3.8 - 9.9 K/cumm Comment:Testing performed by : [address] [address] Hgb 12.7 11.9 - 15.5 g/dL MOOK Comment:Testing performed by : [address], [address] Hct 38.6 35.6 - 45.5 % MOOK Comment:Testing performed by : [address] [address] Plt 347 150 - 400 K/cumm MOOK Comment:Testing performed by : [address] [address] MPV 9.7 9.1 - 12.3 fL MOOK Comment:Testing performed by : [address], [address] RBC 4.35 3.90 - 5.20 M/cumm MOOK Comment:Testing performed by : [address] [address] MCV 88.7 81.3 - 96.4 fL MOOK Comment:Testing performed by : [address], [address] MCH 29.2 27.1 - 33.3 pg MOOK Comment:Testing performed by : [address] [address] MCHC 32.9 32.3 - 35.7 g/dL MOOK Comment:Testing performed by : [address], [address] RDW CV 14.4 11.1 - 14.9 % MOOK Comment:Testing performed by : [address], [address] RDW SD 47.0 35.7 - 48.1 fL MOOK Comment:Testing performed by : [address], [address] NRBC abs 0.00 0.00 - 0.01 K/cumm MOOK Comment:Testing performed by : [address] [address] Blood 11/01/2024 3:44 AM INVESTMENT BANKING MANAGER 11/01/2024 4:50 AM INVESTMENT BANKING MANAGER Pavel Roldan MD LAB BLOOD ORDERABLES Fi nal Result Performing Organization Address [facility] Co de Phone Number MOOK [address] [place] [address] * eGFR (11/01/2024 3:40 AM INVESTMENT BANKING MANAGER) eGFR 89 >=60 mL/min/1. 73 m2 Comment: Interpretive Data Reference Interval Normal >/= 90 mL/min/1.73m2 Mildly decreased* 60 - 89 mL/min/1.73m2 Mildly to moderately decreased 45 - 59 mL/min/1.73m2 Moderately to severely decreased 30 - 44 mL/min/1.73m2 Severely decreased 15 - 29 mL/min/1.73m2 Kidney Failure < 15 mL/min/1.73m2 *Relative to young adult level Estimated glomerular filtration rate is determined by the 2020 CKD-EPI equation recommended by the National Kidney Foundation (A Unifying Approach to GFR Estimation: Recommendations of the NKF-ASK Task Force on Reassessing the Inclusion of Race in Diagnosing Kidney Disease, JASN 2020). The CKD-EPI equation should not be used for patients with unstable renal function and has not been validated in children and those over 70. Current interpretive data was last reviewed 2021. Testing performed by: [address] [address] Blood 11/01/2024 3:40 AM INVESTMENT BANKING MANAGER 11/01/2024 4:48 AM INVESTMENT BANKING MANAGER Pavel Roldan MD LAB BLOOD ORDERABLES Fi nal Result Performing Organization Address City/[facility]/ZIP Co de Phone Number MOOK [address] [place] [address] * (ABNORMAL) Basic metabolic panel (11/01/2024 3:40 AM INVESTMENT BANKING MANAGER) Sodium 141 135 - 145 mmol/L Comment:Testing performed by : [address] [address] Potassium, pl 4.2 3.3 - 4.9 mmol/L MOOK GARAY Comment: Hemolyzed; Potassium value may be falsely elevated by as much as 1.0 mmol/L. Suggest redraw and reanalysis. Testing performed by: [address] [address] Chloride 104 97 - 110 mmol/L MOOK Comment:Testing performed by : [address] [address] CO2 24 22 - 32 mmol/L MOOK Comment:Testing performed by : [address] [address] Anion gap 13 2 - 15 mmol/L MOOK Comment:Testing performed by : [address] [address] BUN 19 6 - 25 mg/dL MOOK Comment:Testing performed by : [address] [address] Creatinine 0.55(L) 0.60 - 1.10 mg/dL MOOK Comment:Testing performed by : [address] [address] Glucose 167 70 - 199 mg/dL MOOK Comment: Interpretive Data Fasting glucose >/= 126 mg/dl is diagnostic for diabetes. Fasting is defined as no caloric intake for at least 8 hours. Fasting glucose between 100 mg/dl to 125 mg/dl is diagnostic of prediabetes. In a patient with classic symptoms of hyperglycemia or hyperglycemic crisis, a random glucose >/= 200 mg/dl is diagnostic for diabetes. In the absence of unequivocal hyperglycemia, results should be confirmed by repeat testing. The classification and Diagnosis of Diabetes Diabetes Care 2021; 46: S19-S40. Current interpretive data was last revised 2022. Testing performed by: [address] [address] Calcium 9.4 8.5 - 10.3 mg/dL MOOK Comment:Testing performed by : [address] [address] Blood 11/01/2024 3:40 AM INVESTMENT BANKING MANAGER 11/01/2024 4:48 AM INVESTMENT BANKING MANAGER Pavel Roldan MD LAB BLOOD ORDERABLES Fi nal Result MOOK [facility] [address] [facility] Department [place] [address] * XR Chest 1 View (10/31/2024 10:42 AM INVESTMENT BANKING MANAGER) Anatomical Region Laterality Modality Body, Chest N/A Computed Radiogr aphy 10/31/2024 12:4 9 PM INVESTMENT BANKING MANAGER Narrative 10/31/2024 12:52 PM INVESTMENT BANKING MANAGER EXAM DESCRIPTION: XR CHEST 1 VIEW REASON FOR STUDY: SOB, pulmonary edema suspected Pt states rsv positive, sob and cough today TECHNIQUE: Single radiographic view(s) of the chest. COMPARISON: 10/29/2024 FINDINGS: LUNGS: Lungs are hyperinflated and there are subtle diffuse pulmonary opacities bilaterally. No definite focal consolidation identified. No sizable pleural effusion or pneumothorax. HEART/MEDIASTINUM: Prominence of the cardiac silhouette appears unchanged. LINES/TUBES: Multiple surgical clips are in the left-lateral chest wall. BONES: No acute osseous abnormality. IMPRESSION: Hyperinflated lungs with subtle pulmonary opacities which could be related to pulmonary edema or pneumonia. THIS IS AN ELECTRONICALLY VERIFIED FINAL REPORT 10/31/2024 12:52 PM - Electronically signed by Deven Cooley M.D. AM: AM Report ID: [id number] Reading Location: [id number] Procedure Note Deven Cooley MD - 10/31/2024 EXAM DESCRIPTION: XR CHEST 1 VIEW REASON FOR STUDY: SOB, pulmonary edema suspected Pt states rsv positive, sob and cough today TECHNIQUE: Single radiographic view(s) of the chest. COMPARISON: 10/29/2024 FINDINGS: LUNGS: Lungs are hyperinflated and there are subtle diffuse pulmonary opacities bilaterally. No definite focal consolidationidentified. No sizable pleural effusion or pneumothorax. HEART/MEDIASTINUM: Prominence of the cardiac silhouette appearsunchanged. LINES/TUBES: Multiple surgical clips are in the left-lateral chest wall. BONES: No acute osseous abnormality. IMPRESSION: Hyperinflated lungs with subtle pulmonary opacities whichcould be related to pulmonary edema or pneumonia. THIS IS AN ELECTRONICALLY VERIFIED FINAL REPORT 10/31/2024 12:52 PM - Electronically signed by Deven Cooley M.D. AM: AM Report ID: [id number] Reading Location: [id number] Pavel Roldan MD IMG XR PROCEDURES Final Result * Strep pneumoniae antigen, urine Urine (10/30/2024 6:14 PM INVESTMENT BANKING MANAGER) S. pneumoniae Ag Negative Negative Comment: Interpretive Data A positive result is indicative of pneumococcal pneumonia in patients with severe CAP. Cross-reactivity with closely related Streptococcus bacteria may occur. A negative result suggests no current or recent pneumococcal infection but cannot rule out infection with S. pneumoniae. The results of this testing should be used in conjunction with clinical findings and other diagnostic testing, including microbiologic culture. Current Interpretive Data was last revised on 2022 Urine 10/30/2024 6:14 PM INVESTMENT BANKING MANAGER 10/30/2024 8:09 PM INVESTMENT BANKING MANAGER Anika Cooney MD LAB MICROBIOLOG Y - GENERAL ORDERABLES Final Result [facility] [facility] Department of Laboratories [place], [place] [id number] * Legionella antigen Urine (10/30/2024 6:14 PM INVESTMENT BANKING MANAGER) Legionella Ag Negative Negative Comment: Interpretive Data This test detects only Legionella pneumophila serogroup 1 antigen. Testing performed by [facility] ([phone]). Current interpretive data was last revised on 2019. Testing performed by: [facility], [address] [facility] [place]., [address] Urine 10/30/2024 6:14 PM INVESTMENT BANKING MANAGER 10/30/2024 11:50 PM INVESTMENT BANKING MANAGER Anika Cooney MD LAB MICROBIOLOG Y - GENERAL ORDERABLES Final Result Performing Organization Address [facility] Co de Phone Number MOOK [address] [facility] [place] [address] * eGFR (10/30/2024 7:30 AM INVESTMENT BANKING MANAGER) eGFR 84 >=60 mL/min/1. 73 m2 Comment: Interpretive Data Reference Interval Normal >/= 90 mL/min/1.73m2 Mildly decreased* 60 - 89 mL/min/1.73m2 Mildly to moderately decreased 45 - 59 mL/min/1.73m2 Moderately to severely decreased 30 - 44 mL/min/1.73m2 Severely decreased 15 - 29 mL/min/1.73m2 Kidney Failure < 15 mL/min/1.73m2 *Relative to young adult level Estimated glomerular filtration rate is determined by the 2020 CKD-EPI equation recommended by the National Kidney Foundation (A Unifying Approach to GFR Estimation: Recommendations of the NKF-ASK Task Force on Reassessing the Inclusion of Race in Diagnosing Kidney Disease, JASN 2020). The CKD-EPI equation should not be used for patients with unstable renal function and has not been validated in children and those over 70. Current interpretive data was last reviewed 2021. Testing performed by: [address] [address] Blood 10/30/2024 7:30 AM INVESTMENT BANKING MANAGER 10/30/2024 7:46 AM INVESTMENT BANKING MANAGER Anika Cooney MD LAB BLOOD ORDER MARCO A Final Result Performing Organization Address [facility] Co de Phone Number MOOK [address] [facility] Qwiki [place], [place] [id number] * (ABNORMAL) CBC without differential (10/30/2024 7:30 AM INVESTMENT BANKING MANAGER) WBC 11.6(H) 3.8 - 9.9 K/cumm Comment:Testing performed by : [address] [address] Hgb 14.9 11.9 - 15.5 g/dL MOOK Comment:Testing performed by : [address] [address] Hct 45.4 35.6 - 45.5 % MOOK Comment:Testing performed by : [address] [address] Plt 313 150 - 400 K/cumm MOOK Comment:Testing performed by : [address] [address] MPV 10.2 9.1 - 12.3 fL MOOK Comment:Testing performed by : [address], [address] RBC 5.12 3.90 - 5.20 M/cumm MOOK Comment:Testing performed by : [address], [address] MCV 88.7 81.3 - 96.4 fL MOOK Comment:Testing performed by : [address] [address] MCH 29.1 27.1 - 33.3 pg MOOK Comment:Testing performed by : [address], [address] MCHC 32.8 32.3 - 35.7 g/dL MOOK Comment:Testing performed by : [address], [address] RDW CV 14.0 11.1 - 14.9 % MOOK Comment:Testing performed by : [address], [address] RDW SD 46.1 35.7 - 48.1 fL MOOK Comment:Testing performed by : [address], [address] NRBC abs 0.00 0.00 - 0.01 K/cumm MOOK Comment:Testing performed by : [address] [address] Blood 10/30/2024 7:30 AM INVESTMENT BANKING MANAGER 10/30/2024 7:47 AM INVESTMENT BANKING MANAGER us Anika Cooney MD LAB BLOOD ORDER MARCO A Final Result MOOK [address] [facility] [place] [address] * (ABNORMAL) Basic metabolic panel (10/30/2024 7:30 AM INVESTMENT BANKING MANAGER) Sodium 137 135 - 145 mmol/L Comment:Testing performed by : [address] [address] Potassium, pl 4.2 3.3 - 4.9 mmol/L MOOK Comment: HEMOLYZED: Hemolysis interferes with the above test. Delta - Results Reviewed Testing performed by: [address] [address] Chloride 100 97 - 110 mmol/L MOOK Comment:Testing performed by : [address] [address] CO2 19(L) 22 - 32 mmol/L MOOK Comment:Testing performed by : [address] [address] Anion gap 18(H) 2 - 15 mmol/L MOOK Comment:Testing performed by : [address] [address] BUN 23 6 - 25 mg/dL MOOK Comment:Testing performed by : [address] [address] Creatinine 0.70 0.60 - 1.10 mg/dL MOOK Comment:Testing performed by : [address] [address] Glucose 167 70 - 199 mg/dL MOOK Comment: Interpretive Data Fasting glucose >/= 126 mg/dl is diagnostic for diabetes. Fasting is defined as no caloric intake for at least 8 hours. Fasting glucose between 100 mg/dl to 125 mg/dl is diagnostic of prediabetes. In a patient with classic symptoms of hyperglycemia or hyperglycemic crisis, a random glucose >/= 200 mg/dl is diagnostic for diabetes. In the absence of unequivocal hyperglycemia, results should be confirmed by repeat testing. The classification and Diagnosis of Diabetes Diabetes Care 202; 46: S19-S40. Current interpretive data was last revised 2022. Testing performed by: [facility], [address] [place] [address]., [address] Calcium 9.5 8.5 - 10.3 mg/dL MOOK GARAY Comment:Testing performed by : [facility], [address] [place] [address]., [address] Blood 10/30/2024 7:30 AM INVESTMENT BANKING MANAGER 10/30/2024 7:46 AM INVESTMENT BANKING MANAGER Anika Cooney MD LAB BLOOD ORDER MARCO A Final Result MOOK GARAY [address] [facility] [place] [address] * Blood culture Blood Peripheral (10/29/2024 10:18 PM INVESTMENT BANKING MANAGER) Report Final Report: No growth Comment:Testing performed by : [facility], [address] [place]., [address] Blood (Peripheral) 10/29/2024 10:18 PM INVESTMENT BANKING MANAGER 10/30/2024 2:55 AM INVESTMENT BANKING MANAGER Narrative MOOK GARAY - 11/03/2024 7:00 AM INVESTMENT BANKING MANAGER From a different site than #1. Draw Blood cultures before administration of Antibiotics Collection->Peripheral 1. Blood cultures are incubated for 4 days on a continuously monitored blood culture system. The first report of a negative culture is issued within 24 hours of receipt of the specimen in the laboratory. 2. Positive culture results are reported as soon as they are detected. 3. The most important factor for detection of microbes in the setting of bloodstream infection is the volume of blood submitted for culture. Failure to collect an optimal blood volume can result in false negative blood cultures. 4. For pediatric patients, the recommended blood volume to collect follows a weight based strategy. See the electronic test catalog for collection instructions. 5. For positive blood cultures, a rapid molecular test may be performed for organism identification using the al ePlex blood culture identification panel for gram positive (BCID-GP) and gram negative (BCID-GN) organisms. This nucleic acid amplification test detects microbial DNA in positive blood culture broth. This assay has been cleared by the [place] Food and Drug Administration and its performance characteristics have been verified by the [facility]biology [facility]. For questions about this culture, contact the Microbiology Laboratory at [phone]. Interpretive data was last revised on 24. Markus Prado MD LAB MICROBIOLOGY - GENERAL ORD ERABLES Final Result Performing Organization Address City/[facility]/ZIP Co de Phone Number MOOK [address] [address] * Sepsis Lactate w/ Reflex (10/29/2024 10:09 PM INVESTMENT BANKING MANAGER) Sepsis Lactate 1.3 0.7 - 2.0 mmol/L Comment:Testing performed by : [facility], [address] [place] [address]., [address] Blood 10/29/2024 10:0 9 PM INVESTMENT BANKING MANAGER 10/29/2024 10:27 PM INVESTMENT BANKING MANAGER Markus Prado MD LAB BLOOD ORDERABLES Final Res ult Performing Organization Address [facility]/ZIP Co de Phone Number [facility] [address] [place] [address] * Blood culture Blood Peripheral (10/29/2024 10:09 PM INVESTMENT BANKING MANAGER) Report Final Report: No growth Comment:Testing performed by : [facility], [address] [place] [address] Blood (Peripheral) 10/29/2024 10:09 PM INVESTMENT BANKING MANAGER 10/30/2024 2:55 AM INVESTMENT BANKING MANAGER Narrative MOOK - 11/03/2024 7:00 AM INVESTMENT BANKING MANAGER Draw Blood cultures before administration of Antibiotics Collection->Peripheral 1. Blood cultures are incubated for 4 days on a continuously monitored blood culture system. The first report of a negative culture is issued within 24 hours of receipt of the specimen in the laboratory. 2. Positive culture results are reported as soon as they are detected. 3. The most important factor for detection of microbes in the setting of bloodstream infection is the volume of blood submitted for culture. Failure to collect an optimal blood volume can result in false negative blood cultures. 4. For pediatric patients, the recommended blood volume to collect follows a weight based strategy. See the electronic test catalog for collection instructions. 5. For positive blood cultures, a rapid molecular test may be performed for organism identification using the al ePlex blood culture identification panel for gram positive (BCID-GP) and gram negative (BCID-GN) organisms. This nucleic acid amplification test detects microbial DNA in positive blood culture broth. This assay has been cleared by the [place] Food and Drug Administration and its performance characteristics have been verified by the [facility]. For questions about this culture, contact the Microbiology Laboratory at [phone]. Interpretive data was last revised on 24. us Markus Prado MD LAB MICROBIOLOGY - GENERAL ORD ERABLES Final Result [facility] [address] [facility] [place] [address] * (ABNORMAL) Urinalysis reflex to microscopic and culture Urine (10/29/2024 8:43 PM INVESTMENT BANKING MANAGER) Color, ur Yellow Yellow Comment:Testing performed by : [address] [address] Clarity, ur Cloudy(A) Clear MOOK Comment:Testing performed by : [address] [address] Specific gravity, ur 1.026 1.003 - 1.030 MOOK Comment:Testing performed by : [address] [address] pH, urine 5.0 MOOK Comment: Interpretive Data U rine pH is affected by diet, medications, systemic acid-base disturbances, and renal tubular function. pH may affect urinary stone formation. For example, urine pH below 6.0 may help reduce the tendency for calcium phosphate stones and pH greater than 6.0 may reduce the tendency for uric acid stone formation. Source: [facility] [employer] Current Interpretive Data was last revised on 2017 Testing performed by: [address] [address] Protein, ur ql Trace(A) Negative MOOK Comment:Testing performed by : [facility], [address] [place] [address], [place]., [address] Glucose, ur ql Negative Negative MOOK Comment:Testing performed by : [address], [place]., [address] Ketones, ur Negative Negative MOOK Comment:Testing performed by : [address], [place]., [address] Bilirubin, ur Negative Negative MOOK Comment:Testing performed by : [address], [place]., [address] Blood, ur Negative Negative MOOK Comment:Testing performed by : [address], [place]., [address] Urobilinogen, ur 2.0(A) <2.0 mg/dL MOOK Comment:Testing performed by : [address], [place]., [address] Nitrite, ur Negative Negative MOOK Comment:Testing performed by : [address], [place]., [address] Leukocyte esterase, ur 1+(A) Negative MOOK Comment:Testing performed by : [address], [place]., [address] UA reflex comment Reflex to microscopic UA will be performed. MOOK Comment:Testing performed by : [address], [place]., [address] Urine 10/29/2024 8:43 PM INVESTMENT BANKING MANAGER 10/29/2024 8:52 PM INVESTMENT BANKING MANAGER Zack Sparks DO LAB MICROBIOLOGY - GENERAL ORDERABLES Final Result MOOK [address] [facility] Department [place] [address] * (ABNORMAL) Urinalysis, microscopic only (10/29/2024 8:43 PM INVESTMENT BANKING MANAGER) WBC, ur 0-5 0 - 5 /HPF Comment:Testing performed by : [address], [place]., [address] RBC, ur 3-5(A) 0 - 2 /HPF MOOK GARAY Comment:Testing performed by : [facility], [address] [place] [address]., [address] Epithelial cells, squamous, ur >50(A) 0 - 5 /HPF MOOK Comment:Testing performed by : [facility], [address] [place] [address]., [address] Mucous, ur Present(A) MOOK Comment:Testing performed by : [address] [address] Culture Reflex Comment Reflex conditions for urine culture (WBC >10) not met. MOOK Comment:Testing performed by : [facility], [address] [place] [address]., [address] Urine 10/29/2024 8:43 PM INVESTMENT BANKING MANAGER 10/29/2024 8:52 PM INVESTMENT BANKING MANAGER us Zack Sparks DO LAB URINE ORDERABLES Final Result Performing Organization Address City/State/[facility] Co de Phone Number MOOK [address] [facility] Department [place] [address] * XR Chest 2 views (10/29/2024 7:11 PM INVESTMENT BANKING MANAGER) Anatomical Region Laterality Modality Body, Chest N/A Computed Radiogr aphy 10/29/2024 7:17 PM INVESTMENT BANKING MANAGER Narrative 10/29/2024 7:18 PM INVESTMENT BANKING MANAGER EXAM DESCRIPTION: XR CHEST PA LATERAL 2 VIEWS REASON FOR STUDY: cough Cough and sob for a few weeks. TECHNIQUE: Frontal and lateral radiographic view(s) of the chest. COMPARISON: None FINDINGS: The heart size is upper limits of normal. There are mild atherosclerotic changes of the aorta. The pulmonary vasculature and mediastinum are grossly unremarkable. There are patchy right perihilar and right basilar airspace opacities. There is no definite evidence of a pneumothorax. There is no definite evidence of pleural effusion. There is mild osteopenia. There is a dextroscoliotic curvature of the spine with degenerative changes. IMPRESSION: Patchy right perihilar and right basilar airspace opacities, which is concerning for developing airspace disease. THIS IS AN ELECTRONICALLY VERIFIED FINAL REPORT 10/29/2024 7:18 PM - Electronically signed by Jodie Tello D.O. PS: PS Report ID: [id number] Reading Location: [id number] Procedure Note Jodie Tello DO - 10/29/2024 EXAM DESCRIPTION: XR CHEST PA LATERAL 2 VIEWS REASON FOR STUDY: cough Cough and sob for a few weeks. TECHNIQUE: Frontal and lateral radiographic view(s) of the chest. COMPARISON: None FINDINGS: The heart size is upper limits of normal. There are mild atherosclerotic changes of the aorta. The pulmonary vasculature and mediastinum are grossly unremarkable. There are patchy right perihilarand right basilar airspace opacities. There is no definite evidence of a pneumothorax. There is no definite evidence of pleural effusion. There is mild osteopenia. There is a dextroscoliotic curvature of thespine with degenerative changes. IMPRESSION: Patchy right perihilar and right basilar airspace opacities, which is concerning for developing airspace disease. THIS IS AN ELECTRONICALLY VERIFIED FINAL REPORT 10/29/2024 7:18 PM - Electronically signed by Jodie Tello D.O. PS: PS Report ID: [id number] Reading Location: [place] [address] Markus Prado MD IMG XR PROCEDURES Final Result * (ABNORMAL) Influenza A/B, RSV, and COVID-19 PCR Nasopharyngeal (10/29/2024 6:18 PM INVESTMENT BANKING MANAGER) COVID-19 RNA Negative Negative Comment:Testing performed by : [address] [address] Influenza A RNA Negative Negative MOOK Comment:Testing performed by : [address] [address] Influenza B RNA Negative Negative MOOK Comment:Testing performed by : [address] [address] RSV RNA Positive(A) Negative MOOK Comment: Interpretive data: Testing performed by [facility]. This test is performed using the [employer] Xpert Xpress CoV-2/Flu/RSV plus assay. This is a multiplex, real-time reverse transcriptase PCR assay intended for the qualitative detection of nucleic acid from SARS-CoV-2, influenza A, influenza B, and respiratory syncytial virus. This assay has been cleared by the [place] Food and Drug administration. The performance characteristics have been verified by the [facility]. Results must be considered in the clinical context, and a negative result does not rule out infection. Interpretive Data last revised 2023 Testing performed by: [facility], [address] [place] [address], [place]., [address] Nasopharyngeal 10/29/2024 6: 18 PM INVESTMENT BANKING MANAGER 10/29/2024 6:38 PM INVESTMENT BANKING MANAGER Narrative MOOK - 10/29/2024 7:23 PM INVESTMENT BANKING MANAGER Is the Patient experiencing symptoms consistent with COVID?->Yes Zack Sparks DO LAB MICROBIOLOGY - GENERAL ORDERABLES Final Result MOOK [address] [facility] [place] [address] * (ABNORMAL) eGFR (10/29/2024 6:16 PM INVESTMENT BANKING MANAGER) eGFR 50(L) >=60 mL/min/1. 73 m2 Comment: Interpretive Data Reference Interval Normal >/= 90 mL/min/1.73m2 Mildly decreased* 60 - 89 mL/min/1.73m2 Mildly to moderately decreased 45 - 59 mL/min/1.73m2 Moderately to severely decreased 30 - 44 mL/min/1.73m2 Severely decreased 15 - 29 mL/min/1.73m2 Kidney Failure < 15 mL/min/1.73m2 *Relative to young adult level Estimated glomerular filtration rate is determined by the 2020 CKD-EPI equation recommended by the National Kidney Foundation (A Unifying Approach to GFR Estimation: Recommendations of the NKF-ASK Task Force on Reassessing the Inclusion of Race in Diagnosing Kidney Disease, JASN 2020). The CKD-EPI equation should not be used for patients with unstable renal function and has not been validated in children and those over 70. Current interpretive data was last reviewed 2021. Testing performed by: [address] [address] Blood 10/29/2024 6:16 PM INVESTMENT BANKING MANAGER 10/29/2024 6:38 PM INVESTMENT BANKING MANAGER Zack Sparks DO LAB BLOOD ORDERABLES Final Result [facility] [address] [facility] [place] [address] * (ABNORMAL) Differential, auto (10/29/2024 6:16 PM INVESTMENT BANKING MANAGER) Neutrophil abs 9.4(H) 1.5 - 6.5 K/cumm Comment:Testing performed by : [address] [address] Imm gran abs 0.1 0.0 - 0.1 K/cumm MOOK Comment:Testing performed by : [address] [address] Lymphocyte abs 2.4 0.8 - 3.3 K/cumm MOOK Comment:Testing performed by : [address] [address] Monocyte abs 1.1(H) 0.2 - 0.8 K/cumm MOOK Comment:Testing performed by : [address] [address] Eosinophil abs 0.1 0.0 - 0.5 K/cumm MOOK Comment:Testing performed by : [address] [address] Basophil abs 0.1 0.0 - 0.1 K/cumm MOOK Comment:Testing performed by : [address] [address] Neutrophil pct 71.2 % MOOK Comment: Interpretive Data Percent cell count reference ranges are not reported, since discordance with absolute values may lead to misinterpretation of CBC data. Current Interpretive Data was last revised on 2018. Testing performed by: [address] [address] Imm gran pct 0.8 % [facility] Comment: Interpretive Data Percent cell count reference ranges are not reported, since discordance with absolute values may lead to misinterpretation of CBC data. Current Interpretive Data was last revised on 2018. Testing performed by: [address] [address] Lymphocyte pct 18.5 % [facility] Comment: Interpretive Data Percent cell count reference ranges are not reported, since discordance with absolute values may lead to misinterpretation of CBC data. Current Interpretive Data was last revised on 2018. Testing performed by: [address] [address] Monocyte pct 8.3 % [facility] Comment: Interpretive Data Percent cell count reference ranges are not reported, since discordance with absolute values may lead to misinterpretation of CBC data. Current Interpretive Data was last revised on 2018. Testing performed by: [address] [address] Eosinophil pct 0.8 % [facility] Comment: Interpretive Data Percent cell count reference ranges are not reported, since discordance with absolute values may lead to misinterpretation of CBC data. Current Interpretive Data was last revised on 2018. Testing performed by: [address] [address] Basophil pct 0.4 % [facility] Comment: Interpretive Data Percent cell count reference ranges are not reported, since discordance with absolute values may lead to misinterpretation of CBC data. Current Interpretive Data was last revised on 2018. Testing performed by: [address] [address] Blood 10/29/2024 6:16 PM INVESTMENT BANKING MANAGER 10/29/2024 6:38 PM INVESTMENT BANKING MANAGER us Zack Sparks DO LAB BLOOD ORDERABLES Final Result MOOK [address] [facility] [place] [address] * (ABNORMAL) CBC with auto differential (10/29/2024 6:16 PM INVESTMENT BANKING MANAGER) [facility] Signature WBC 13.2(H) 3.8 - 9.9 K/cumm Comment:Testing performed by : [address], [address] Hgb 14.6 11.9 - 15.5 g/dL MOOK Comment:Testing performed by : [address], [address] Hct 42.8 35.6 - 45.5 % MOOK Comment:Testing performed by : [address], [address] Plt 377 150 - 400 K/cumm MOOK Comment:Testing performed by : [address], [address] MPV 9.8 9.1 - 12.3 fL MOOK Comment:Testing performed by : [address], [address] RBC 5.00 3.90 - 5.20 M/cumm MOOK Comment:Testing performed by : [address], [address] MCV 85.6 81.3 - 96.4 fL MOOK Comment:Testing performed by : [address], [address] MCH 29.2 27.1 - 33.3 pg MOOK Comment:Testing performed by : [address], [address] MCHC 34.1 32.3 - 35.7 g/dL MOOK Comment:Testing performed by : [address], [address] RDW CV 14.3 11.1 - 14.9 % MOOK Comment:Testing performed by : [address], [address] RDW SD 44.9 35.7 - 48.1 fL MOOK Comment:Testing performed by : [address], [address] NRBC abs 0.00 0.00 - 0.01 K/cumm MOOK Comment:Testing performed by : [address] [address] Blood 10/29/2024 6:16 PM INVESTMENT BANKING MANAGER 10/29/2024 6:38 PM INVESTMENT BANKING MANAGER us Zack Sparks DO LAB BLOOD ORDERABLES Final Result [facility] [address] [facility] [place] [address] * (ABNORMAL) Comprehensive metabolic panel (10/29/2024 6:16 PM INVESTMENT BANKING MANAGER) Sodium 137 135 - 145 mmol/L Comment:Testing performed by : [address] [address] Potassium, pl 3.2(L) 3.3 - 4.9 mmol/L MOOK Comment:Testing performed by : [address] [address] Chloride 98 97 - 110 mmol/L MOOK Comment:Testing performed by : [address] [address] CO2 24 22 - 32 mmol/L MOOK Comment:Testing performed by : [address] [address] Anion gap 15 2 - 15 mmol/L MOOK Comment:Testing performed by : [address] [address] BUN 31(H) 6 - 25 mg/dL MOOK Comment:Testing performed by : [address] [address] Creatinine 1.08 0.60 - 1.10 mg/dL MOOK Comment:Testing performed by : [address] [address] Glucose 128 70 - 199 mg/dL MOOK Comment: Interpretive Data Fasting glucose >/= 126 mg/dl is diagnostic for diabetes. Fasting is defined as no caloric intake for at least 8 hours. Fasting glucose between 100 mg/dl to 125 mg/dl is diagnostic of prediabetes. In a patient with classic symptoms of hyperglycemia or hyperglycemic crisis, a random glucose >/= 200 mg/dl is diagnostic for diabetes. In the absence of unequivocal hyperglycemia, results should be confirmed by repeat testing. The classification and Diagnosis of Diabetes Diabetes Care 202; 46: S19-S40. Current interpretive data was last revised 2022. Testing performed by: [address] [address] Calcium 9.7 8.5 - 10.3 mg/dL MOOK Comment:Testing performed by : [address] [address] Bilirubin, total 0.4 0.1 - 1.2 mg/dL MOOK Comment:Testing performed by : [address] [address] Protein, pl 7.6 6.5 - 8.5 g/dL MOOK Comment:Testing performed by : [address] [address] Albumin 3.9 3.5 - 5.0 g/dL MOOK Comment:Testing performed by : [address] [address] Alk phos 117 40 - 130 Units/L MOOK Comment:Testing performed by : [address] [address] ALT 33 7 - 45 Units/L MOOK Comment:Testing performed by : [address] [address] AST 30 10 - 45 Units/L MOOK Comment:Testing performed by : [address] [address] Blood 10/29/2024 6:16 PM INVESTMENT BANKING MANAGER 10/29/2024 6:38 PM INVESTMENT BANKING MANAGER us Zack Sparks DO LAB BLOOD ORDERABLES Final Result MOOK GARAY [address] [facility] [place] [address] * ECG 12 lead (10/29/2024 6:03 PM INVESTMENT BANKING MANAGER) [facility] Ventricular Rate EKG/Min 89 BPM [facility] Atrial Rate 89 BPM [facility] MA-Interval (MSEC) 174 ms [facility] QRS-Interval (MSEC) 90 ms [facility] QT-Interval (MSEC) 364 ms [facility] QTc 442 ms [facility] P [place] 80 degrees [facility] R [place] -9 degrees [facility] T [place] 12 degrees [facility] Diagnosis Normal sinus rhythm Moderate voltage criteria for LVH, may be normal variant No previous ECGs available Confirmed by SULTAN OWENS M.D. ([id number]) on 10/29/2024 8:54:52 PM [facility] 10/29/2024 6:03 PM INVESTMENT BANKING MANAGER 10/29/2024 8:54 PM INVESTMENT BANKING MANAGER us Zack Sparks DO ECG ORDERABLES Final Resul t [facility] [place] Last 3 Months Insurance MEDICARE [facility] MEDICARE MEDICARE BLUE [employer]OSS MEDICARE SUPPLEMENT Advance Directives For more information, please contact: [phone] * LIMITED - No CPR (Latest Code Status on File) Date Activated Date Inactivated Comments 10/30/2024 2:13 AM 11/03/2024 4:44 PM Question Answer Comments Provide aggressive medical m anagement before a full cardiopulmonary arrest occurs. Use antibiotics, IV Fluids, and medical treatment unless specifically selected below: No intubationNo cardioversion * Full Code Date Activated Date Inactivated Comments 10/30/2024 1:15 AM 10/30/2024 2:13 AM Care Teams Clinical Quality Analyst Relationship Specialty Start Date End Date SextonRosario castillo DO Aruna [address] [facility] [address] [place] [address] PCP - General Family Medicine 04/09/23 Clarisse Kneny MD [address] [facility] [address] [place], [place] [id number] Medical Oncologist/Jetting Machine Operator Medical Oncology 11/03/20 Ken Mckeon MD [address] [facility] [address] [place], [place] [id number] Consulting Physician Cardiology 11/04/21 Kiana Read NP [address] [facility] [address] [place], [place] [id number] Nurse Practitioner Medical Oncology 11/04/21
--- OUTSIDE RECORDS SUMMARY | 2024-11-12 12:14 | XMS_ITS | Encounter Summary ---
Author Organization [facility] Address [address] [place] [address] Phone Care Team Providers Care Lock And Dam Repairer Name Role Phone Abdulaziz Verasleonardo CHOPRA Primary Care Pr ovider Clarisse Kenny MD Unavailable [phone] Josh Harris MD Primary Care Provide r Ken Mckeon MD Unavailable [phone] Kiana Read NP Unavailable [phone] Rosario Sexton DO Primary Care Provider + [...] on file Legal Sex Female 9:01 AM LEAD PRESSER Gender Identity Not on file Sexual Orientation [...] Diagnoses Not on filedocumented in this encounter Additional Health Concerns Infection Onset Date Last Indicated Resolved Time COVID: Suspected 10/29/2024 10/29/2024 10/29/2024 7:24 PM LEAD PRESSER RSV, droplet 10/29/2024 10/29/2024 11/05/2024 3:07 AM LEAD PRESSER documented as of this encounter Care Teams Lock And Dam Repairer Relationship Specialty Start Date End Date Eda Hui KEYSHA Lozano PCP - General Physician Cheese Factory Worker 10/01/19 09/20/21 Josh Harris MD [address] [facility] [address] [place] [address] PCP - General Internal Medicine 09/21/21 04/08/23 Rosario Sexton DO [address] [facility] [address] [place] [address] PCP - General Family Medicine 04/09/23 Clarisse Kenny MD [address] [facility] [address] [place] [address] Medical Oncologist/Computer System Validation Specialist Medical Oncology 11/03/20 Ken Mckeon MD [address] [facility] [address] [place] [address] Consulting Physician Cardiology 11/04/21 Kiana Read NP [address] [facility] [address] [place] [address] Nurse Practitioner Medical Oncology 11/04/21 documented as of this encounter
--- OUTSIDE RECORDS SUMMARY | 2024-11-12 12:14 | XMS_ITS | Clinical Summary ---
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 RN TO OBSERVE AND ASSESS, COLOR CONSULTANT/GUN TESTER TO OBSERVE FOR RISK FOR FALLS AND INSTRUCT IN FALL PREVENTION, HOME SAFETY, MEDICATION MANAGEMENT, INFECTION PREVENTION, AND NUTRITION MANAGEMENT. RN/COLOR CONSULTANT/GUN TESTER NURSE MAY PERFORM O2 SATURATION LEVEL ON ADMISSION AND PRN FOR EVERY VISIT FOR RN TO ASSESS/COLOR CONSULTANT TO OBSERVE PATIENT, WITH NOTIFICATION TO THE PHYSICIAN IF SATURATION IS 90% IN THE ABSENCE OF MORE SPECIFIC PARAMETERS FROM THE PHYSICIAN. AGENCY MAY PERFORM A RESUMPTION OF CARE VISIT FOLLOWING ANY HOSPITAL ADMISSION. RN/COLOR CONSULTANT/GUN TESTER TO MONITOR CO-MORBID CONDITIONS LISTED ON THE PLAN OF CARE AND ANY NEW CONDITIONS THAT PRESENT THEMSELVES DURING THIS EPISODE TO IDENTIFY CHANGES AND INTERVENE TO MINIMIZE COMPLICATIONS. [code = RN TO OBSERVE, ASSESS, EVALUATE, AND DEVELOP AN INDIVIDUALIZED PLAN OF CARE. AGENCY MAY ACCEPT ORDERS FROM CONSULTING PHYSICIANS . RN TO OBSERVE AND ASSESS, COLOR CONSULTANT/GUN TESTER TO OBSERVE FOR RISK FOR FALLS AND INSTRUCT IN FALL PREVENTION, HOME SAFETY, MEDICATION MANAGEMENT, INFECTION PREVENTION, AND NUTRITION MANAGEMENT. RN/COLOR CONSULTANT/GUN TESTER NURSE MAY PERFORM O2 SATURATION LEVEL ON ADMISSION AND PRN FOR EVERY VISIT FOR RN TO ASSESS/COLOR CONSULTANT TO OBSERVE PATIENT, WITH NOTIFICATION TO THE PHYSICIAN IF SATURATION IS 90% IN THE ABSENCE OF MORE SPECIFIC PARAMETERS FROM THE PHYSICIAN. AGENCY MAY PERFORM A RESUMPTION OF CARE VISIT FOLLOWING ANY HOSPITAL ADMISSION. RN/COLOR CONSULTANT/GUN TESTER TO MONITOR CO-MORBID CONDITIONS LISTED ON THE PLAN OF CARE AND ANY NEW CONDITIONS THAT PRESENT THEMSELVES DURING THIS EPISODE TO IDENTIFY CHANGES AND INTERVENE TO MINIMIZE COMPLICATIONS.] Future Scheduled Test MEDICATION MANAGEMENT; RN/COLOR CONSULTANT/GUN TESTER TO REVIEW MEDICATIONS FOR INTERACTIONS, EFFECTIVENESS OF DRUG THERAPY, AND SIGNS/SYMPTOMS OF ADVERSE REACTIONS. MAY INSTRUCT AND REINFORCE MEDICATION TEACHING RELATED TO THE USE OF MEDICATIONS, DOSAGE, FREQUENCY, PURPOSE, SIDE EFFECTS, AND TO REPORT COMPLICATIONS. [code = MEDICATION MANAGEMENT; RN/COLOR CONSULTANT/GUN TESTER TO REVIEW MEDICATIONS FOR INTERACTIONS, EFFECTIVENESS OF DRUG THERAPY, AND SIGNS/SYMPTOMS OF ADVERSE REACTIONS. MAY INSTRUCT AND REINFORCE MEDICATION TEACHING RELATED TO THE USE OF MEDICATIONS, DOSAGE, FREQUENCY, PURPOSE, SIDE EFFECTS, AND TO REPORT COMPLICATIONS.] Future Scheduled Test RISK FOR H OSPITALIZATION; RN TO ASSESS/TEACH, GUN TESTER/COLOR CONSULTANT TO OBSERVE/TEACH PATIENT/CAREGIVER ON RISK FOR HOSPITALIZATION/EMERGENCY ROOM VISITS, TEACH SIGNS AND SYMPTOMS THAT PUT PATIENT AT RISK, WHEN TO NOTIFY NURSE/PHYSICIAN OF COMPLICATIONS/DECLINE, AND WHEN TO CALL 911. [code = RISK FOR HOSPITALIZATION; RN TO ASSESS/TEACH, GUN TESTER/COLOR CONSULTANT TO OBSERVE/TEACH PATIENT/CAREGIVER ON RISK FOR HOSPITALIZATION/EMERGENCY ROOM VISITS, TEACH SIGNS AND SYMPTOMS THAT PUT PATIENT AT RISK, WHEN TO NOTIFY NURSE/PHYSICIAN OF COMPLICATIONS/DECLINE, AND WHEN TO CALL 911.] Future Scheduled Test CARDIOVASC ULAR SYSTEM; RN TO ASSESS/TEACH, COLOR CONSULTANT/GUN TESTER TO OBSERVE/TEACH RELATED TO ALTERED CARDIOVASCULAR STATUS TO MINIMIZE COMPLICATIONS AND REDUCE HOSPITALIZATION. [code = CARDIOVASCULAR SYSTEM; RN TO ASSESS/TEACH, COLOR CONSULTANT/GUN TESTER TO OBSERVE/TEACH RELATED TO ALTERED CARDIOVASCULAR STATUS TO MINIMIZE COMPLICATIONS AND REDUCE HOSPITALIZATION.] Future Scheduled Test HYPERTENSI ON MANAGEMENT; RN TO ASSESS AND TEACH, COLOR CONSULTANT/GUN TESTER TO OBSERVE AND TEACH WARNING SIGNS AND SYMPTOMS TO AVOID HOSPITALIZATION. [code = HYPERTENSION MANAGEMENT; RN TO ASSESS AND TEACH, COLOR CONSULTANT/GUN TESTER TO OBSERVE AND TEACH WARNING SIGNS AND SYMPTOMS TO AVOID HOSPITALIZATION.] Future Scheduled Test ARRHYTHMIA MANAGEMENT; RN TO ASSESS AND TEACH, COLOR CONSULTANT/GUN TESTER TO OBSERVE AND TEACH WARNING SIGNS AND SYMPTOMS TO AVOID HOSPITALIZATION. [code = ARRHYTHMIA MANAGEMENT; RN TO ASSESS AND TEACH, COLOR CONSULTANT/GUN TESTER TO OBSERVE AND TEACH WARNING SIGNS AND SYMPTOMS TO AVOID HOSPITALIZATION.] Future Scheduled Test RESPIRATOR Y SYSTEM MANAGEMENT; RN TO ASSESS AND TEACH, COLOR CONSULTANT/GUN TESTER TO OBSERVE AND TEACH RELATED TO ALTERED RESPIRATORY STATUS TO MINIMIZE COMPLICATIONS AND REDUCE HOSPITALIZATION. [code = RESPIRATORY SYSTEM MANAGEMENT; RN TO ASSESS AND TEACH, COLOR CONSULTANT/GUN TESTER TO OBSERVE AND TEACH RELATED TO ALTERED RESPIRATORY STATUS TO MINIMIZE COMPLICATIONS AND REDUCE HOSPITALIZATION.] Future Scheduled Test PNEUMONIA MANAGEMENT; RN TO ASSESS AND TEACH, COLOR CONSULTANT/GUN TESTER TO OBSERVE AND TEACH SIGNS OF PNEUMONIA EXACERBATION AND PROVIDE EARLY INTERVENTIONS TO MINIMIZE RISK OF HOSPITALIZATION. [code = PNEUMONIA MANAGEMENT; RN TO ASSESS AND TEACH, COLOR CONSULTANT/GUN TESTER TO OBSERVE AND TEACH SIGNS OF PNEUMONIA EXACERBATION AND PROVIDE EARLY INTERVENTIONS TO MINIMIZE RISK OF HOSPITALIZATION.] Future Scheduled Test PAIN MANAG EMENT; RN TO ASSESS AND TEACH, GUN TESTER/COLOR CONSULTANT TO OBSERVE AND TEACH AND PROVIDE EDUCATION ON PAIN MANAGEMENT TECHNIQUES. [code = PAIN MANAGEMENT; RN TO ASSESS AND TEACH, GUN TESTER/COLOR CONSULTANT TO OBSERVE AND TEACH AND PROVIDE EDUCATION ON PAIN MANAGEMENT TECHNIQUES.] Future Scheduled Test GENITOURIN MENDOZA MANAGEMENT; RN TO ASSESS AND TEACH, COLOR CONSULTANT/GUN TESTER TO OBSERVE AND TEACH RELATED TO ALTERED GENITOURINARY STATUS TO MINIMIZE COMPLICATIONS AND REDUCE HOSPITALIZATION. [code = GENITOURINARY MANAGEMENT; RN TO ASSESS AND TEACH, COLOR CONSULTANT/GUN TESTER TO OBSERVE AND TEACH RELATED TO ALTERED GENITOURINARY STATUS TO MINIMIZE COMPLICATIONS AND REDUCE HOSPITALIZATION.] Future Scheduled Test URINARY CU LTURE AND SENSITIVITY PROTOCOL UP TO 2 PRN RN/COLOR CONSULTANT/GUN TESTER VISITS MAY BE PERFORMED FOR S/S OF UTI. RN TO ASSESS, COLOR CONSULTANT/GUN TESTER TO OBSERVE INITIATION OF UTI PROTOCOL. RN/GUN TESTER/COLOR CONSULTANT TO INSTRUCT PATIENT AND/OR CAREGIVER ON S/S OF UTI TO REPORT TO RN/COLOR CONSULTANT/GUN TESTER IF NEW OR WORSENING SYMPTOMS. DRINK PLENTY OF WATER THROUGHOUT THE DAY TO MAINTAIN HYDRATION (UNLESS CONTRAINDICATED.) URINATE WHEN THE URGE IS FELT, DO NOT WAIT. WASH GENITALS DAILY. WIPE FROM FRONT TO BACK AFTER HAVING A BOWEL MOVEMENT. RN/GUN TESTER/COLOR CONSULTANT TO OBTAIN UA WITH C/S VIA CLEAN CATCH URINE AND IF UNABLE TO OBTAIN MAY PERFORM AN IN AND OUT CATH. IF PATIENT HAS INDWELLING CATHETER MAY OBTAIN FROM SAMPLING PORT. NOTIFY PROVIDER OF RESULTS AND OBTAIN FURTHER ORDERS. [code = URINARY CULTURE AND SENSITIVITY PROTOCOL UP TO 2 PRN RN/COLOR CONSULTANT/GUN TESTER VISITS MAY BE PERFORMED FOR S/S OF UTI. RN TO ASSESS, COLOR CONSULTANT/GUN TESTER TO OBSERVE INITIATION OF UTI PROTOCOL. RN/GUN TESTER/COLOR CONSULTANT TO INSTRUCT PATIENT AND/OR CAREGIVER ON S/S OF UTI TO REPORT TO RN/COLOR CONSULTANT/GUN TESTER IF NEW OR WORSENING SYMPTOMS. DRINK PLENTY OF WATER THROUGHOUT THE DAY TO MAINTAIN HYDRATION (UNLESS CONTRAINDICATED.) URINATE WHEN THE URGE IS FELT, DO NOT WAIT. WASH GENITALS DAILY. WIPE FROM FRONT TO BACK AFTER HAVING A BOWEL MOVEMENT. RN/GUN TESTER/COLOR CONSULTANT TO OBTAIN UA WITH C/S VIA CLEAN CATCH URINE AND IF UNABLE TO OBTAIN MAY PERFORM AN IN AND OUT CATH. IF PATIENT HAS INDWELLING CATHETER MAY OBTAIN FROM SAMPLING PORT. NOTIFY PROVIDER OF RESULTS AND OBTAIN FURTHER ORDERS.] Future Scheduled Test URINARY IN CONTINENCE MANAGEMENT; RN TO ASSESS AND TEACH, COLOR CONSULTANT/LVNTO OBSERVE AND TEACH MANAGEMENT OF URINARY INCONTINENCE. TEACH/INSTRUCT ON PREVENTING INFECTION AND SKIN BREAKDOWN. RN/COLOR CONSULTANT/GUN TESTER MAY INSTRUCT IN BLADDER TRAINING PROGRAM INDICATED. [code = URINARY INCONTINENCE MANAGEMENT; RN TO ASSESS AND TEACH, COLOR CONSULTANT/LVNTO OBSERVE AND TEACH MANAGEMENT OF URINARY INCONTINENCE. TEACH/INSTRUCT ON PREVENTING INFECTION AND SKIN BREAKDOWN. RN/COLOR CONSULTANT/GUN TESTER MAY INSTRUCT IN BLADDER TRAINING PROGRAM INDICATED.] Future Scheduled Test URINARY TR ACT INFECTION MANAGEMENT; RN/GUN TESTER/COLOR CONSULTANT TO PROVIDE SKILLED TEACHING AND SELF- CARE MANAGEMENT RELATED TO UTI TO MINIMIZE COMPLICATIONS AND REDUCE THE RISK OF HOSPITALIZATION. [code = URINARY TRACT INFECTION MANAGEMENT; RN/GUN TESTER/COLOR CONSULTANT TO PROVIDE SKILLED TEACHING AND SELF- CARE MANAGEMENT RELATED TO UTI TO MINIMIZE COMPLICATIONS AND REDUCE THE RISK OF HOSPITALIZATION.] Future Scheduled Test URINARY MO LECULAR TESTING PROTOCOL UP TO 2 PRN RN/COLOR CONSULTANT/GUN TESTER VISITS MAY BE PERFORMED FOR S/S OF UTI. RN TO ASSESS, COLOR CONSULTANT/GUN TESTER TO OBSERVE INITIATION OF UTI PROTOCOL. RN/GUN TESTER/COLOR CONSULTANT TO INSTRUCT PATIENT AND/OR CAREGIVER ON S/S OF UTI TO REPORT TO RN/GUN TESTER/COLOR CONSULTANT IF NEW OR WORSENING SYMPTOMS. DRINK PLENTY OF WATER THROUGHOUT THE DAY TO MAINTAIN HYDRATION (UNLESS CONTRAINDICATED.) URINATE WHEN THE URGE IS FELT, DO NOT WAIT. WASH GENITALS DAILY. WIPE FROM FRONT TO BACK AFTER HAVING A BOWEL MOVEMENT. RN/GUN TESTER/COLOR CONSULTANT TO OBTAIN MOLECULAR URINE TESTING BY OPTION 1 OR OPTION 2 (OPTION 1) RN/GUN TESTER/COLOR CONSULTANT TO OBTAIN U/A WITH REFLEX TO UTI PANEL (MOLECULAR) VIA CLEAN CATCH URINE AND IF UNABLE TO OBTAIN MAY PERFORM AN IN AND OUT CATH. IF PATIENT HAS INDWELLING CATHETER MAY OBTAIN FROM SAMPLING PORT. (OPTION 2) RN/GUN TESTER/COLOR CONSULTANT TO OBTAIN UTI PANEL (MOLECULAR) VIA SWAB COLLECTION METHOD FROM ADULT BRIEF/DIAPER OR PAD IF PATIENT IS INCONTINENT. NOTIFY PROVIDER OF RESULTS AND OBTAIN FURTHER ORDERS. [code = URINARY MOLECULAR TESTING PROTOCOL UP TO 2 PRN RN/COLOR CONSULTANT/GUN TESTER VISITS MAY BE PERFORMED FOR S/S OF UTI. RN TO ASSESS, COLOR CONSULTANT/GUN TESTER TO OBSERVE INITIATION OF UTI PROTOCOL. RN/GUN TESTER/COLOR CONSULTANT TO INSTRUCT PATIENT AND/OR CAREGIVER ON S/S OF UTI TO REPORT TO RN/GUN TESTER/COLOR CONSULTANT IF NEW OR WORSENING SYMPTOMS. DRINK PLENTY OF WATER THROUGHOUT THE DAY TO MAINTAIN HYDRATION (UNLESS CONTRAINDICATED.) URINATE WHEN THE URGE IS FELT, DO NOT WAIT. WASH GENITALS DAILY. WIPE FROM FRONT TO BACK AFTER HAVING A BOWEL MOVEMENT. RN/GUN TESTER/COLOR CONSULTANT TO OBTAIN MOLECULAR URINE TESTING BY OPTION 1 OR OPTION 2 (OPTION 1) RN/GUN TESTER/COLOR CONSULTANT TO OBTAIN U/A WITH REFLEX TO UTI PANEL (MOLECULAR) VIA CLEAN CATCH URINE AND IF UNABLE TO OBTAIN MAY PERFORM AN IN AND OUT CATH. IF PATIENT HAS INDWELLING CATHETER MAY OBTAIN FROM SAMPLING PORT. (OPTION 2) RN/GUN TESTER/COLOR CONSULTANT TO OBTAIN UTI PANEL (MOLECULAR) VIA SWAB COLLECTION METHOD FROM ADULT BRIEF/DIAPER OR PAD IF PATIENT IS INCONTINENT. NOTIFY PROVIDER OF RESULTS AND OBTAIN FURTHER ORDERS.] Future Scheduled Test FALL REDUC TION MANAGEMENT; RN TO ASSESS AND OBSERVE, COLOR CONSULTANT/GUN TESTER TO OBSERVE FALL RISK FACTORS AND EDUCATE PATIENT/CAREGIVER ON STRATEGIES TO MINIMIZE THE RISK OF FALLING. [code = FALL REDUCTION MANAGEMENT; RN TO ASSESS AND OBSERVE, COLOR CONSULTANT/GUN TESTER TO OBSERVE FALL RISK FACTORS AND EDUCATE PATIENT/CAREGIVER ON STRATEGIES TO MINIMIZE THE RISK OF FALLING.] Future Scheduled Test ASTHMA MAN AGEMENT; RN TO ASSESS AND TEACH, COLOR CONSULTANT/GUN TESTER TO OBSERVE AND TEACH ASTHMA MANAGEMENT AND PROVIDE EARLY INTERVENTIONS TO MINIMIZE RISK OF HOSPITALIZATION [code = ASTHMA MANAGEMENT; RN TO ASSESS AND TEACH, COLOR CONSULTANT/GUN TESTER TO OBSERVE AND TEACH ASTHMA MANAGEMENT AND PROVIDE EARLY INTERVENTIONS TO MINIMIZE RISK OF HOSPITALIZATION] Future Scheduled Test PRN VISITS ; NUMBER OF RN/COLOR CONSULTANT/GUN TESTER VISITS: 1 RN/COLOR CONSULTANT/GUN TESTER TO PERFORM: RESPIRATORY MANAGEMENT FOR THE FOLLOWING REASONS: COMPLICATIONS [code = PRN VISITS; NUMBER OF RN/COLOR CONSULTANT/GUN TESTER VISITS: 1 RN/COLOR CONSULTANT/GUN TESTER TO PERFORM: RESPIRATORY MANAGEMENT FOR THE FOLLOWING [...] TO EVALUATE, OBSERVE / ASSESS, AND MONITOR, AVIONICS ELECTRONICS TECHNICIAN TO OBSERVE AND MONITOR, PROVIDE SKILLED THERAPEUTIC INTERVENTION, ACTIVITY, EDUCATION, AND TRAINING TO ADDRESS SAFETY AND INDEPENDENCE OF ADLS AND FUNCTIONAL TRANSFERS IN HOME ENVIRONMENT. ACTIVITIES OF DAILY LIVING (OT/AVIONICS ELECTRONICS TECHNICIAN) TOILET TRANSFER (OT/AVIONICS ELECTRONICS TECHNICIAN) BATH/SHOWER TRANSFER (OT/JOSÉ) THERAPEUTIC EXERCISE (OT/AVIONICS ELECTRONICS TECHNICIAN) ENERGY CONSERVATION/ACTIVITY DEMAND (OT/JOSÉ) OT/AVIONICS ELECTRONICS TECHNICIAN TO MONITOR AND EDUCATE ON OXYGEN SATURATION DURING ADLS/IADLS, NOTIFY PHYSICIAN AND/OR THE RN CLINICAL CAN DOFFER FOR PHYSICIAN NOTIFICATION AND IF O2 SATS BELOW 90% AFTER 10 MIN OF REST. OT / AVIONICS ELECTRONICS TECHNICIAN TO IDENTIFY FALL RISK FACTORS; EDUCATE THE [...] TRANSFER (OT/JOSÉ) BATH/SHOWER TRANSFER (OT/JOSÉ) THERAPEUTIC EXERCISE (OT/AVIONICS ELECTRONICS TECHNICIAN) ENERGY CONSERVATION/ACTIVITY DEMAND (OT/AVIONICS ELECTRONICS TECHNICIAN) OT/AVIONICS ELECTRONICS TECHNICIAN TO MONITOR AND EDUCATE ON OXYGEN SATURATION DURING ADLS/IADLS, NOTIFY PHYSICIAN AND/OR THE RN CLINICAL CAN DOFFER FOR PHYSICIAN NOTIFICATION AND IF O2 SATS BELOW 90% AFTER 10 MIN OF REST. OT / AVIONICS ELECTRONICS TECHNICIAN TO IDENTIFY FALL RISK FACTORS; EDUCATE THE PATIENT/CAREGIVER ON WAYS TO REDUCE FALL RISK FACTORS AND ESTABLISH HOME EXERCISE PROGRAM TO MINIMIZE FALL RISK. MAY TEACH THE PATIENT FLOOR RECOVERY WHEN CLINICALLY APPROPRIATE. OT/JOSÉ TO EDUCATE ON HYPERTENSION SELF-MANAGEMENT OT/AVIONICS ELECTRONICS TECHNICIAN TO EDUCATE ON ATRIAL FIBRILLATION SELF-MANAGEMENT.] Goal [...] End Date/Time Encounter Type Admission Type Attending [facility] Facility Care Department Encounter ID Discharge Date Discharge Status Discharge Condition Discharge Reason Percent Goals Met 2024-11-06 00:00:00 2025-01-04 00:00:00 Outpatient NEW ADMISSION [facility] [id number]
--- OUTSIDE RECORDS SUMMARY | 2024-11-12 12:15 | XMS_ITS | Referral Summary ---
Author Organization [facility], formerly 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 Role Phone Clarisse Kenny MD Unavailable [phone] Ken Mckeon MD Unavailable [phone] Kiana Read NP Unavailable [phone] Rosario Sexton DO Primary Care Provider + Encounters Date Type Department Care Team Description 10/29/2024 8:23 PM WEAVER HAND - 11/03/2024 12:40 PM WEAVER HAND Hospital Encounter [place] [address] Med [address] [place] [id number] Markus Prado MD Sada, MD Jamar Vázquez, Pavel Staley MD Community acquired pneumonia (Primary Dx); RSV (acute bronchiolitis due to respiratory syncytial virus); Hypokalemia; Hypoxia; Pneumonia of both lungs due to infectious organism, unspecified part of lung; Overgrown toenails Discharge Disposition: Discharge to home, home health skilled care from Last 3 Months Allergies Active Allergy Reactions Criticality Noted Date Comments Meperidine Vomiting High 04/28/2020 Perforated Ulcer, vomiting blood Doxycycline Vomiting Medium 04/03/2022 Mold Shortness of breath High 04/28/2020 Patient has asthma, mold causes SOB & asthma flare Pravastatin Muscle pain Medium 03/31/2022 Pravastatin Medications amLODIPine (NORVASC) 10 mg tablet amlodipine 10 mg tablet Take 1 tablet every day by oral route. 11/30/19 Active metoprolol XL (TOPROL-XL) 50 mg 24 [...] twice a day by inhalation route. 07/08/20 Active magnesium gluconate 200 mg tabletIndicati ons:hypomagnes [...] tablet every day by oral route. 09/05/20 Active rosuvastatin (CRESTOR) 40 mg tablet Take [...] drink = 0.6 oz pur e alcohol) [facility] Utilities Answer Date Recorded In the past 12 months has e [employer], gas, oil, or water [employer] threatened to shut off services in your [...] often do you attend chur ch or catholic services? Never 10/30/2024 Do you belong to any clubs o r organizations such as yarsani groups, unions, fraternal or athletic groups, or [...] any time in the past 12 m [facility], were you homeless or living in a prison (including now)? No 10/30/2024 Personal Safety Answer Date Recorded Have you ever been in or are you currently in a harmful physical or emotional relationship or is someone making you feel afraid or unsafe? Denies 10/29/2024 Comments Unknown Sex and Gender Information Value Date Recorded Sex Assigned at Not on file Legal Sex Female 9:01 AM WEAVER HAND Gender Identity Not on file Sexual Orientation Not on file Last Filed Vital Signs Vital Sign Reading Time Taken Comments Blood Pressure 136/68 11/03/2024 6:18 AM WEAVER HAND Pulse 72 11/03/2024 9:00 AM WEAVER HAND Temperature 36.6 C (97.9 F) 11/03/2024 6:18 AM WEAVER HAND Respiratory Rate 18 11/03/2024 8:20 AM WEAVER HAND Oxygen Saturation 98% 11/03/2024 8:20 AM WEAVER HAND Inhaled Oxygen Concentration - - Weight 86.8 kg (191 lb 5.8 oz) 11/03/2024 6:00 A M WEAVER HAND Height 152.4 cm (5') 10/30/2024 12:28 PM WEAVER HAND Body Mass Index 37.37 10/30/2024 12:28 PM WEAVER HAND Plan of Treatment Not on file Procedures Procedure Name Priority Date/Time Associated Diagnosis Comments EGFR Routine 11/02/2024 8:00 AM WEAVER HAND BASIC METABOLIC PANEL Routine 11/02/2024 8:00 AM WEAVER HAND CBC WITHOUT DIFFERENTIAL Routine 11/02/2024 8:00 AM WEAVER HAND INCENTIVE SPIROMETRY RT Routine 11/02/2024 4:00 AM WEAVER HAND INCENTIVE SPIROMETRY RT Routine 11/02/2024 12:00 AM WEAVER HAND INCENTIVE SPIROMETRY RT Routine 11/01/2024 8:00 PM WEAVER HAND INCENTIVE SPIROMETRY RT Routine 11/01/2024 8:00 AM WEAVER HAND CBC WITHOUT DIFFERENTIAL Routine 11/01/2024 3:44 AM WEAVER HAND EGFR Routine 11/01/2024 3:40 AM WEAVER HAND BASIC METABOLIC PANEL Routine 11/01/2024 3:40 AM WEAVER HAND XR CHEST 1 VIEW IP Routine 10/31/2024 10:42 AM WEAVER HAND INCENTIVE SPIROMETRY RT Routine 10/31/2024 4:00 AM WEAVER HAND INCENTIVE SPIROMETRY RT Routine 10/31/2024 12:00 AM WEAVER HAND INCENTIVE SPIROMETRY RT Routine 10/30/2024 8:00 PM WEAVER HAND LEGIONELLA ANTIGEN, URINE Routine 10/30/2024 6:14 PM WEAVER HAND STREP PNEUMONIAE AG, URINE Routine 10/30/2024 6:14 PM WEAVER HAND INCENTIVE SPIROMETRY RT Routine 10/30/2024 8:02 AM WEAVER HAND EGFR Routine 10/30/2024 7:30 AM WEAVER HAND CBC WITHOUT DIFFERENTIAL Routine 10/30/2024 7:30 AM WEAVER HAND BASIC METABOLIC PANEL Routine 10/30/2024 7:30 AM WEAVER HAND INCENTIVE SPIROMETRY RT Routine 10/30/2024 4:00 AM WEAVER HAND INCENTIVE SPIROMETRY RT Routine 10/30/2024 1:13 AM WEAVER HAND INCENTIVE SPIROMETRY RT Routine 10/30/2024 1:13 AM WEAVER HAND INCENTIVE SPIROMETRY RT Routine 10/30/2024 1:13 AM WEAVER HAND BLOOD CULTURE STAT 10/29/2024 10:18 PM WEAVER HAND SEPSIS LACTATE WITH REFLEX STAT 10/29/2024 10:09 PM WEAVER HAND BLOOD CULTURE STAT 10/29/2024 10:09 PM WEAVER HAND URINALYSIS, MICROSCOPIC ONLY STAT 10/29/2024 8:43 PM WEAVER HAND URINALYSIS AND REFLEX TO MICROSCOPIC AND CULTURE STAT 10/29/2024 8:43 PM WEAVER HAND XR CHEST PA LATERAL 2 VIEWS ED 10/29/2024 7:11 PM WEAVER HAND INFLUENZA A/B, RSV, AND COVID-19 PCR STAT 10/29/2024 6:18 PM WEAVER HAND EGFR STAT 10/29/2024 6:16 PM WEAVER HAND DIFFERENTIAL AUTO STAT 10/29/2024 6:1 6 PM WEAVER HAND COMPREHENSIVE METABOLIC PANEL STAT 10/29/2024 6:16 PM WEAVER HAND CBC WITH AUTO DIFFERENTIAL STAT 10/29/2024 6:16 PM WEAVER HAND ECG 12-LEAD STAT 10/29/2024 6:03 PM WEAVER HAND from Last 3 Months Results * eGFR (11/02/2024 8:00 AM WEAVER HAND) eGFR 88 >=60 mL/min/1. 73 m2 Comment: [...] was last reviewed 2021. Testing performed by: [facility], [address] [place] [address]., [address] Blood 11/02/2024 8:00 AM WEAVER HAND 11/02/2024 9:11 AM WEAVER HAND us Pavel Roldan MD LAB BLOOD ORDERABLES Fi nal Result [facility]EE[facility] [address] [facility] Department [place] [address] * (ABNORMAL) CBC without differential (11/02/2024 8:00 AM WEAVER HAND) Pathologist [facility] WBC 9.7 3.8 - 9.9 K/cumm Comment:Testing performed by : [address] [address] Hgb 12.9 11.9 - 15.5 g/dL MOOK Comment:Testing performed by : [address] [address] Hct 38.3 35.6 - 45.5 % MOOK Comment:Testing performed by : [address] [address] Plt 417(H) 150 - 400 K/cumm MOOK Comment:Testing performed by : [address] [address] MPV 9.4 9.1 - 12.3 fL MOOK Comment:Testing performed by : [address], [address] RBC 4.40 3.90 - 5.20 M/cumm MOOK Comment:Testing performed by : [address] [address] MCV 87.0 81.3 - 96.4 fL MOOK Comment:Testing performed by : [address] [address] MCH 29.3 27.1 - 33.3 pg MOOK Comment:Testing performed by : [address] [address] MCHC 33.7 32.3 - 35.7 g/dL MOOK Comment:Testing performed by : [address] [address] RDW CV 14.3 11.1 - 14.9 % MOOK Comment:Testing performed by : [address] [address] RDW SD 45.5 35.7 - 48.1 fL MOOK Comment:Testing performed by : [address] [address] NRBC abs 0.00 0.00 - 0.01 K/cumm MOOK Comment:Testing performed by : [address] [address] Blood 11/02/2024 8:00 AM WEAVER HAND 11/02/2024 9:11 AM WEAVER HAND us Pavel Roldan MD LAB BLOOD ORDERABLES Fi nal Result [facility] [address] [facility] Department [place] [address] * (ABNORMAL) Basic metabolic panel (11/02/2024 8:00 AM WEAVER HAND) Sodium 140 135 - 145 mmol/L Comment:Testing performed by : [address] [address] Potassium, pl 3.9 3.3 - 4.9 mmol/L MOOK Comment: Hemolyzed; Potassium value may be falsely elevated by as much as 1.0 mmol/L. Suggest redraw and reanalysis. Testing performed by: [address] [address] Chloride 104 97 - 110 mmol/L MOOK Comment:Testing performed by : [address] [address] CO2 25 22 - 32 mmol/L MOOK Comment:Testing performed by : [address] [address] Anion gap 11 2 - 15 mmol/L MOOK Comment:Testing performed by : [address] [address] BUN 24 6 - 25 mg/dL MOOK Comment:Testing performed by : [address] [address] Creatinine 0.58(L) 0.60 - 1.10 mg/dL MOOK Comment:Testing performed by : [address] [address] Glucose 157 70 - 199 mg/dL MOOK [...] was last revised 2022. Testing performed by: [address] [address] Calcium 9.4 8.5 - 10.3 mg/dL MOOK GARAY Comment:Testing performed by : [address] [address] Blood 11/02/2024 8:00 AM WEAVER HAND 11/02/2024 9:11 AM WEAVER HAND us Pavel Roldan MD LAB BLOOD ORDERABLES Fi nal Result MOOK [address] [facility] Department of Laboratories [place], [place] [id number] * CBC without differential (11/01/2024 3:44 AM WEAVER HAND) WBC 6.9 3.8 - 9.9 K/cumm Comment:Testing performed by : [address] [address] Hgb 12.7 11.9 - 15.5 g/dL MOOK GARAY Comment:Testing performed by : [address] [address] Hct 38.6 35.6 - 45.5 % MOOK GARAY Comment:Testing performed by : [address] [address] Plt 347 150 - 400 K/cumm MOOK Comment:Testing performed by : [address] [address] MPV 9.7 9.1 - 12.3 fL MOOK GARAY Comment:Testing performed by : [address] [address] RBC 4.35 3.90 - 5.20 M/cumm MOOK GARAY Comment:Testing performed by : [address] [address] MCV 88.7 81.3 - 96.4 fL MOOK GARAY Comment:Testing performed by : [address] [address] MCH 29.2 27.1 - 33.3 pg MOOK GARAY Comment:Testing performed by : [facility], [address] [place] [address]., [address] MCHC 32.9 32.3 - 35.7 g/dL MOOK GARAY Comment:Testing performed by : [facility], [address] [place] [address]., [address] RDW CV 14.4 11.1 - 14.9 % MOOK GARAY Comment:Testing performed by : [address] [address] RDW SD 47.0 35.7 - 48.1 fL MOOK GARAY Comment:Testing performed by : [address] [address] NRBC abs 0.00 0.00 - 0.01 K/cumm MOOK GARAY Comment:Testing performed by : [address] [address] Blood 11/01/2024 3:44 AM WEAVER HAND 11/01/2024 4:50 AM WEAVER HAND us Pavel Roldan MD LAB BLOOD ORDERABLES Fi nal Result MOOK [address] [facility] Department [place] [address] * eGFR (11/01/2024 3:40 AM WEAVER HAND) eGFR 89 >=60 mL/min/1. 73 m2 Comment: [...] was last reviewed 2021. Testing performed by: [address] [address] Blood 11/01/2024 3:40 AM WEAVER HAND 11/01/2024 4:48 AM WEAVER HAND Pavel Roldan MD LAB BLOOD ORDERABLES Fi nal Result MOOK [address] [facility] Department [place] [address] * (ABNORMAL) Basic metabolic panel (11/01/2024 3:40 AM WEAVER HAND) Sodium 141 135 - 145 mmol/L Comment:Testing performed by : [address] [address] Potassium, pl 4.2 3.3 - 4.9 mmol/L MOOK Comment: Hemolyzed; Potassium value may be falsely elevated by as much as 1.0 mmol/L. Suggest redraw and reanalysis. Testing performed by: [address] [address] Chloride 104 97 - 110 mmol/L MOOK Comment:Testing performed by : [address] [address] CO2 24 22 - 32 mmol/L MOOK Comment:Testing performed by : [address] [address] Anion gap 13 2 - 15 mmol/L MOOK Comment:Testing performed by : [address] [address] BUN 19 6 - 25 mg/dL MOOK Comment:Testing performed by : [address] [address] Creatinine 0.55(L) 0.60 - 1.10 mg/dL MOOK Comment:Testing performed by : [address] [address] Glucose 167 70 - 199 mg/dL MOOK [...] was last revised 2022. Testing performed by: [facility], [address] [place] [address]., [address] Calcium 9.4 8.5 - 10.3 mg/dL MOOK GARAY Comment:Testing performed by : [address] [address] Blood 11/01/2024 3:40 AM WEAVER HAND 11/01/2024 4:48 AM WEAVER HAND Pavel Roldan MD LAB BLOOD ORDERABLES Fi nal Result MOOK G[facility]AY [address] [facility] Department [place] [address] * XR Chest 1 View (10/31/2024 10:42 AM WEAVER HAND) Anatomical Region Laterality Modality Body, Chest N/A Computed Radiogr aphy 10/31/2024 12:4 9 PM WEAVER HAND Narrative 10/31/2024 12:52 PM WEAVER HAND EXAM DESCRIPTION: XR CHEST 1 VIEW REASON [...] Deven Cooley M.D. AM: AM Report ID: [id number] Reading Location: [id number] Procedure Note Deven Cooley MD - 10/31/2024 [...] Deven Cooley M.D. AM: AM Report ID: [id number] Reading Location: [id number] Pavel Roldan MD IMG XR PROCEDURES Final Result * Strep pneumoniae antigen, urine Urine (10/30/2024 6:14 PM WEAVER HAND) S. pneumoniae Ag Negative Negative Comment: Interpretive [...] revised on 2022 Urine 10/30/2024 6:14 PM WEAVER HAND 10/30/2024 8:09 PM WEAVER HAND Anika Cooney MD LAB MICROBIOLOG Y - GENERAL ORDERABLES Final Result Performing Organization Address [facility] Co de Phone Number MOOK [address] [address] * Legionella antigen Urine (10/30/2024 6:14 PM WEAVER HAND) Legionella Ag Negative Negative Comment: Interpretive Data This test detects only Legionella pneumophila serogroup 1 antigen. Testing performed by [facility] ([phone]). Current interpretive data was last revised on 2019. Testing performed by: [facility], [address] [place]., [address] Urine 10/30/2024 6:14 PM WEAVER HAND 10/30/2024 11:50 PM WEAVER HAND Anika Cooney MD LAB MICROBIOLOG Y - GENERAL ORDERABLES Final Result Performing Organization Address [facility] Co de Phone Number MOOK [address] [employer] [address] * eGFR (10/30/2024 7:30 AM WEAVER HAND) eGFR 84 >=60 mL/min/1. 73 m2 Comment: [...] was last reviewed 2021. Testing performed by: [address] [address] Blood 10/30/2024 7:30 AM WEAVER HAND 10/30/2024 7:46 AM WEAVER HAND Anika Cooney MD LAB BLOOD ORDER MARCO A Final Result [facility] [address] [facility] Department [place] [address] * (ABNORMAL) CBC without differential (10/30/2024 7:30 AM WEAVER HAND) WBC 11.6(H) 3.8 - 9.9 K/cumm Comment:Testing performed by : [address] [address] Hgb 14.9 11.9 - 15.5 g/dL MOOK GARAY Comment:Testing performed by : [address] [address] Hct 45.4 35.6 - 45.5 % MOOK Comment:Testing performed by : [address] [address] Plt 313 150 - 400 K/cumm MOOK Comment:Testing performed by : [address] [address] MPV 10.2 9.1 - 12.3 fL MOOK Comment:Testing performed by : [address] [address] RBC 5.12 3.90 - 5.20 M/cumm MOOK GARAY Comment:Testing performed by : [address] [address] MCV 88.7 81.3 - 96.4 fL MOOK GARAY Comment:Testing performed by : [address] [address] MCH 29.1 27.1 - 33.3 pg MOOK GARAY Comment:Testing performed by : [address] [address] MCHC 32.8 32.3 - 35.7 g/dL MOOK GARAY Comment:Testing performed by : [address] [address] RDW CV 14.0 11.1 - 14.9 % MOOK GARAY Comment:Testing performed by : [address] [address] RDW SD 46.1 35.7 - 48.1 fL MOOK GARAY Comment:Testing performed by : [address] [address] NRBC abs 0.00 0.00 - 0.01 K/cumm MOOK GARAY Comment:Testing performed by : [address] [address] Blood 10/30/2024 7:30 AM WEAVER HAND 10/30/2024 7:47 AM WEAVER HAND Anika Cooney MD LAB BLOOD ORDER MARCO A Final Result MOOK [facility] Department of Laboratories [place], [place] [id number] * (ABNORMAL) Basic metabolic panel (10/30/2024 7:30 AM WEAVER HAND) Sodium 137 135 - 145 mmol/L Comment:Testing performed by : [address] [address] Potassium, pl 4.2 3.3 - 4.9 mmol/L MOOK GARAY Comment: HEMOLYZED: Hemolysis interferes with the above test. Delta - Results Reviewed Testing performed by: [address] [address] Chloride 100 97 - 110 mmol/L MOOK GARAY Comment:Testing performed by : [address] [address] CO2 19(L) 22 - 32 mmol/L MOOK GARAY Comment:Testing performed by : [address] [address] Anion gap 18(H) 2 - 15 mmol/L MOOK Comment:Testing performed by : [address] [address] BUN 23 6 - 25 mg/dL MOOK Comment:Testing performed by : [address] [address] Creatinine 0.70 0.60 - 1.10 mg/dL MOOK Comment:Testing performed by : [address] [address] Glucose 167 70 - 199 mg/dL MOOK [...] was last revised 2022. Testing performed by: [address] [address] Calcium 9.5 8.5 - 10.3 mg/dL MOOK Comment:Testing performed by : [address] [address] Blood 10/30/2024 7:30 AM WEAVER HAND 10/30/2024 7:46 AM WEAVER HAND Anika Cooney MD LAB BLOOD ORDER MARCO A Final Result [facility] [address] [facility] Department [place] [address] * Blood culture Blood Peripheral (10/29/2024 10:18 PM WEAVER HAND) Report Final Report: No growth Comment:Testing performed by : [facility], [address] [place]., [address] Blood (Peripheral) 10/29/2024 10:18 PM WEAVER HAND 10/30/2024 2:55 AM WEAVER HAND Narrative MOOK GARAY - 11/03/2024 7:00 AM WEAVER HAND From a different site than #1. Draw [...] performance characteristics have been verified by the [facility]. For questions about this culture, contact the Microbiology Laboratory at [phone]. Interpretive data was last revised on 24. Markus Prado MD LAB MICROBIOLOGY - GENERAL ORD ERABLES Final Result Performing Organization Address City/State/[facility] Co de Phone Number MOOK [address] [facility] Department [place] [address] * Sepsis Lactate w/ Reflex (10/29/2024 10:09 PM WEAVER HAND) [facility] Sepsis Lactate 1.3 0.7 - 2.0 mmol/L Comment:Testing performed by : [facility], [address] [place] [address]., [address] Blood 10/29/2024 10:0 9 PM WEAVER HAND 10/29/2024 10:27 PM WEAVER HAND Markus Prado MD LAB BLOOD ORDERABLES Final Res ult MOOK GARAY [address] [facility] Department [place] [address] * Blood culture Blood Peripheral (10/29/2024 10:09 PM WEAVER HAND) Report Final Report: No growth Comment:Testing performed by : [facility], [address] [place] [address] Blood (Peripheral) 10/29/2024 10:09 PM WEAVER HAND 10/30/2024 2:55 AM WEAVER HAND [facility]ative [facility] 11/03/2024 7:00 AM WEAVER HAND Draw Blood cultures before administration of Antibiotics [...] performance characteristics have been verified by the [facility]. For questions about this culture, contact the Microbiology Laboratory at [phone]. Interpretive data was last revised on 24. us Markus Prado MD LAB MICROBIOLOGY - GENERAL ORD ERABLES Final Result Performing Organization Address [facility] Co de Phone Number MOOK GARAY [address] [facility] Department [place] [address] * (ABNORMAL) Urinalysis reflex to microscopic and culture Urine (10/29/2024 8:43 PM WEAVER HAND) Color, ur Yellow Yellow Comment:Testing performed by : [address] [address] Clarity, ur Cloudy(A) Clear MOOK Comment:Testing performed by : [facility], [address] [place] [address], [place]., [address] Specific gravity, ur 1.026 1.003 - 1.030 MOOK Comment:Testing performed by : [address] [address] pH, urine 5.0 MOOK Comment: Interpretive Data U rine pH is affected by diet, medications, systemic acid-base disturbances, and renal tubular function. pH may affect urinary stone formation. For example, urine pH below 6.0 may help reduce the tendency for calcium phosphate stones and pH greater than 6.0 may reduce the tendency for uric acid stone formation. Source: [facility] [employer] Current Interpretive Data was last revised on 2017 Testing performed by: [address] [address] Protein, ur ql Trace(A) Negative MOOK Comment:Testing performed by : [address] [address] Glucose, ur ql Negative Negative MOOK Comment:Testing performed by : [address] [address] Ketones, ur Negative Negative MOOK Comment:Testing performed by : [address] [address] Bilirubin, ur Negative Negative MOOK Comment:Testing performed by : [address] [address] Blood, ur Negative Negative MOOK Comment:Testing performed by : [address] [address] Urobilinogen, ur 2.0(A) <2.0 mg/dL MOOK Comment:Testing performed by : [address] [address] Nitrite, ur Negative Negative MOOK Comment:Testing performed by : [address] [address] Leukocyte esterase, ur 1+(A) Negative MOOK Comment:Testing performed by : [address] [address] UA reflex comment Reflex to microscopic UA will be performed. MOOK Comment:Testing performed by : [address] [address] Urine 10/29/2024 8:43 PM WEAVER HAND 10/29/2024 8:52 PM WEAVER HAND Zack Sparks DO LAB MICROBIOLOGY - GENERAL ORDERABLES Final Result Performing Organization Address [facility] Co de Phone Number [address] [employer] [place] [address] * (ABNORMAL) Urinalysis, microscopic only (10/29/2024 8:43 PM WEAVER HAND) WBC, ur 0-5 0 - 5 /HPF Comment:Testing performed by : [address] [address] RBC, ur 3-5(A) 0 - 2 /HPF MOOK Comment:Testing performed by : [address] [address] Epithelial cells, squamous, ur >50(A) 0 - 5 /HPF MOOK Comment:Testing performed by : [address] [address] Mucous, ur Present(A) MOOK Comment:Testing performed by : [address] [address] Culture Reflex Comment Reflex conditions for urine culture (WBC >10) not met. MOOK Comment:Testing performed by : [address] [address] Urine 10/29/2024 8:43 PM WEAVER HAND 10/29/2024 8:52 PM WEAVER HAND Zack Sparks DO LAB URINE ORDERABLES Final Result Performing Organization Address [facility] Co de Phone Number [facility] [address] [facility] [employer] [place] [address] * XR Chest 2 views (10/29/2024 7:11 PM WEAVER HAND) Anatomical Region Laterality Modality Body, Chest N/A Computed Radiogr aphy 10/29/2024 7:17 PM WEAVER HAND Narrative 10/29/2024 7:18 PM WEAVER HAND EXAM DESCRIPTION: XR CHEST PA LATERAL 2 [...] Jodie Tello D.O. PS: PS Report ID: [id number] Reading Location: [id number] Procedure Note Tello Jodie Kelley, DO - 10/29/2024 EXAM DESCRIPTION: XR CHEST [...] Jodie Tello D.O. PS: PS Report ID: [id number] Reading Location: [id number] us Markus Prado MD IMG XR PROCEDURES Final Result * (ABNORMAL) Influenza A/B, RSV, and COVID-19 PCR Nasopharyngeal (10/29/2024 6:18 PM WEAVER HAND) [facility] COVID-19 RNA Negative Negative Comment:Testing performed by : [address], [address] Influenza A RNA Negative Negative MOOK Comment:Testing performed by : [address] [address] Influenza B RNA Negative Negative [facility] Comment:Testing performed by : [address], [address] RSV RNA Positive(A) Negative MOOK Comment: Interpretive data: Testing performed by [facility]. This test is performed using the [employer] Xpert Xpress CoV-2/Flu/RSV plus assay. This is a multiplex, real-time reverse transcriptase PCR assay intended for the qualitative detection of nucleic acid from SARS-CoV-2, influenza A, influenza B, and respiratory syncytial virus. This assay has been cleared by the [place] Food and Drug administration. The performance characteristics have been verified by the [facility]. Results must be considered in the clinical context, and a negative result does not rule out infection. Interpretive Data last revised 2023 Testing performed by: [address] [address] Nasopharyngeal 10/29/2024 6: 18 PM WEAVER HAND 10/29/2024 6:38 PM WEAVER HAND Narrative MOOK - 10/29/2024 7:23 PM WEAVER HAND Is the Patient experiencing symptoms consistent with COVID?->Yes us Zack Sparks DO LAB MICROBIOLOGY - GENERAL ORDERABLES Final Result MOOK [address] Department [place] [address] * (ABNORMAL) eGFR (10/29/2024 6:16 PM WEAVER HAND) [facility] eGFR 50(L) >=60 mL/min/1. 73 m2 Comment: [...] was last reviewed 2021. Testing performed by: [address] [address] Blood 10/29/2024 6:16 PM WEAVER HAND 10/29/2024 6:38 PM WEAVER HAND Zack Sparks DO LAB BLOOD ORDERABLES Final Result MOOK [address] [facility] Department [place] [address] * (ABNORMAL) Differential, auto (10/29/2024 6:16 PM WEAVER HAND) [facility] Neutrophil abs 9.4(H) 1.5 - 6.5 K/cumm Comment:Testing performed by : [address] [address] Imm gran abs 0.1 0.0 - 0.1 K/cumm MOOK Comment:Testing performed by : [address] [address] Lymphocyte abs 2.4 0.8 - 3.3 K/cumm [facility] Comment:Testing performed by : [address] [address] Monocyte abs 1.1(H) 0.2 - 0.8 K/cumm [facility] Comment:Testing performed by : [address], [place]., [address] Eosinophil abs 0.1 0.0 - 0.5 K/cumm [facility] Comment:Testing performed by : [address], [place]., [address] Basophil abs 0.1 0.0 - 0.1 K/cumm [facility] Comment:Testing performed by : [address] [address] Neutrophil pct 71.2 % [facility] Comment: Interpretive Data Percent cell count reference ranges are not reported, since discordance with absolute values may lead to misinterpretation of CBC data. Current Interpretive Data was last revised on 2018. Testing performed by: [address] [address] Imm gran pct 0.8 % [facility] Comment: Interpretive Data Percent cell count reference ranges are not reported, since discordance with absolute values may lead to misinterpretation of CBC data. Current Interpretive Data was last revised on 2018. Testing performed by: [address] [address] Lymphocyte pct 18.5 % [facility] Comment: Interpretive Data Percent cell count reference ranges are not reported, since discordance with absolute values may lead to misinterpretation of CBC data. Current Interpretive Data was last revised on 2018. Testing performed by: [address] [address] Monocyte pct 8.3 % [facility] Comment: Interpretive Data Percent cell count reference ranges are not reported, since discordance with absolute values may lead to misinterpretation of CBC data. Current Interpretive Data was last revised on 2018. Testing performed by: [address] [address] Eosinophil pct 0.8 % [facility] Comment: Interpretive Data Percent cell count reference ranges are not reported, since discordance with absolute values may lead to misinterpretation of CBC data. Current Interpretive Data was last revised on 2018. Testing performed by: [address] [address] Basophil pct 0.4 % [facility] Comment: Interpretive Data Percent cell count reference ranges are not reported, since discordance with absolute values may lead to misinterpretation of CBC data. Current Interpretive Data was last revised on 2018. Testing performed by: [address] [address] Blood 10/29/2024 6:16 PM WEAVER HAND 10/29/2024 6:38 PM WEAVER HAND us Zack Sparks DO LAB BLOOD ORDERABLES Final Result MOOK [address] [facility] Department [place] [address] * (ABNORMAL) CBC with auto differential (10/29/2024 6:16 PM WEAVER HAND) WBC 13.2(H) 3.8 - 9.9 K/cumm Comment:Testing performed by : [address] [address] Hgb 14.6 11.9 - 15.5 g/dL [facility] Comment:Testing performed by : [address] [address] Hct 42.8 35.6 - 45.5 % [facility] Comment:Testing performed by : [address] [address] Plt 377 150 - 400 K/cumm [facility] Comment:Testing performed by : [address] [address] MPV 9.8 9.1 - 12.3 fL [facility] Comment:Testing performed by : [address] [address] RBC 5.00 3.90 - 5.20 M/cumm [facility] Comment:Testing performed by : [address] [address] MCV 85.6 81.3 - 96.4 fL [facility] Comment:Testing performed by : [address] [address] MCH 29.2 27.1 - 33.3 pg [facility] Comment:Testing performed by : [address] [address] MCHC 34.1 32.3 - 35.7 g/dL [facility] Comment:Testing performed by : [address] [address] RDW CV 14.3 11.1 - 14.9 % MOOK Comment:Testing performed by : [address], [address] RDW SD 44.9 35.7 - 48.1 fL [facility] Comment:Testing performed by : [address] [address] NRBC abs 0.00 0.00 - 0.01 K/cumm MOOK Comment:Testing performed by : [address] [address] Blood 10/29/2024 6:16 PM WEAVER HAND 10/29/2024 6:38 PM WEAVER HAND Zack Sparks DO LAB BLOOD ORDERABLES Final Result Performing Organization Address City/State/[facility] Co de Phone Number MOOK [address] [facility] Department [place] [address] * (ABNORMAL) Comprehensive metabolic panel (10/29/2024 6:16 PM WEAVER HAND) Sodium 137 135 - 145 mmol/L Comment:Testing performed by : [address] [address] Potassium, pl 3.2(L) 3.3 - 4.9 mmol/L [facility] Comment:Testing performed by : [address] [address] Chloride 98 97 - 110 mmol/L [facility] Comment:Testing performed by : [address] [address] CO2 24 22 - 32 mmol/L MOOK Comment:Testing performed by : [address] [address] Anion gap 15 2 - 15 mmol/L MOOK Comment:Testing performed by : [address], [place]., [address] BUN 31(H) 6 - 25 mg/dL MOOK Comment:Testing performed by : [address], [place]., [address] Creatinine 1.08 0.60 - 1.10 mg/dL [facility] Comment:Testing performed by : [address], [place]., [address] Glucose 128 70 - 199 mg/dL [facility] Comment: Interpretive Data Fasting glucose >/= 126 [...] was last revised 2022. Testing performed by: [address] [address] Calcium 9.7 8.5 - 10.3 mg/dL [facility] Comment:Testing performed by : [address] [address] Bilirubin, total 0.4 0.1 - 1.2 mg/dL [facility] Comment:Testing performed by : [address] [address] Protein, pl 7.6 6.5 - 8.5 g/dL MOOK Comment:Testing performed by : [address] [address] Albumin 3.9 3.5 - 5.0 g/dL MOOK Comment:Testing performed by : [address] [address] Alk phos 117 40 - 130 Units/L MOOK Comment:Testing performed by : [address] [address] ALT 33 7 - 45 Units/L MOOK Comment:Testing performed by : [address] [address] AST 30 10 - 45 Units/L MOOK Comment:Testing performed by : [address] [address] Blood 10/29/2024 6:16 PM WEAVER HAND 10/29/2024 6:38 PM WEAVER HAND Zack Sparks DO LAB BLOOD ORDERABLES Final Result Performing Organization Address City/[facility]/ZIP Co de Phone Number MOOK [address] [facility] Department [place] [address] * ECG 12 lead (10/29/2024 6:03 PM WEAVER HAND) Pathologist [facility] Ventricular Rate EKG/Min 89 BPM [facility] Atrial Rate [address] [facility] NC-Interval (MSEC) [address] [facility] QRS-Interval (MSEC) [address] [facility] QT-Interval (MSEC) [address] [facility] QTc [address] [facility] P [place] [address] [facility] R [place] -[address] [facility] T [place] [address] [facility] Diagnosis Normal sinus rhythm Moderate voltage criteria for LVH, may be normal variant No previous ECGs available Confirmed by SULTAN OWENS M.D. ([id number]) on 10/29/2024 8:54:52 PM [facility] 10/29/2024 6:03 PM WEAVER HAND 10/29/2024 8:54 PM WEAVER HAND Zack Sparks DO ECG ORDERABLES Final Resul t [facility] from Last 3 Months Insurance MEDICARE [facility] MEDICARE MEDICARE [facility] MEDICARE SUPPLEMENT Advance Directives For more information, please contact: [phone] * LIMITED - No CPR (Latest Code [...] 1:15 AM 10/30/2024 2:13 AM Care Teams [employer] Milling Machinist Relationship Specialty Start Date End Date Rosario Sexton DO [address] [facility] [address] [place] [address] PCP - General Family Medicine 04/09/23 Clarisse Kenny MD [address] [facility] [address] [place] [address] Medical Oncologist/Performance Engineer Medical Oncology 11/03/20 Ken Mckeon MD [address] [facility] [address] [place] [address] Consulting Physician Cardiology 11/04/21 Kiana Read NP [address] [facility] [address] [place] [address] Nurse Practitioner Medical Oncology 11/04/21
[2024-11-12 12:28] VITALS: BP 163/67; PULSE 84; RESP 16; TEMP 36.4; O2SAT 97
--- NOTE | 2024-11-12 13:07 | ECG_ITS ---
Test Date: 2024-11-12 14:44:55 Measurements Intervals [place] Rate: 57 P: 12 MA: 186 QRS: -10 QRSD: 94 T: 2 QT: 431 QTc: 421 Interpretive Statements SINUS BRADYCARDIA EARLY PRECORDIAL R/S TRANSITION LEFT VENTRICULAR HYPERTROPHY BASELINE ARTIFACT- I, II, III, AVR, AVL, AVF BORDERLINE ECG No previous ECG available for comparison Electronically Signed On 11-12-2024 15:44:03 WANT AD CLERK by Pino Espinal D.O.
--- NOTE | 2024-11-12 13:07 | ED_ITS ---
HPI - General Adult General Chief complaint: Shortness of Breath/Dyspnea Stated complaint: i'm sick Time Seen by Provider: 11/12/24 13:01 Source: patient and family Mode of arrival: ambulatory Limitations: no limitations History of Present Illness HPI narrative: 84 years old white female came to the ED by private car after seeing her family physician today because of feeling exhausted and tired. Patient report history of RSV, pneumonia 1 week ago, was hospitalized at [facility] for 4 days and got discharged recently,. Currently patient denies any fever, chills, nausea, vomiting, shortness of breath or chest pain. Related Data Home Medications ?Medication ?Instructions ?Recorded ?Confirmed ?Last Taken ?Type magnesium oxide 400 mg PO DAILY 08/25/19 11/12/24 Unknown History niacin 500 mg tablet 500 mg PO DAILY 08/25/19 11/12/24 Unknown History aspirin 81 mg tablet,delayed 81 mg PO DAILY 02/22/23 11/12/24 Unknown History release (Adult Low Dose Aspirin) ascorbate calcium (vitamin C) 500 500 mg PO BID 10/29/24 11/12/24 Unknown History mg tablet cholecalciferol (vitamin D3) 50 50 mcg PO DAILY 10/29/24 11/12/24 Unknown History mcg (2,000 unit) tablet ferrous sulfate 325 mg (65 mg 325 mg PO DAILY 10/29/24 11/12/24 Unknown History iron) tablet mecobalamin (vitamin B12) 1,000 1,000 mcg sublingual DAILY 10/29/24 11/12/24 Unknown History mcg disintegrating tablet,sublingual zinc acetate 25 mg (zinc) capsule 25 mg PO DAILY 10/29/24 11/12/24 Unknown History Allergies Allergy/AdvReac Type Severity Reaction Status Date / Time [id number] Reductase AdvReac Severe Muscle Pain Verified 11/12/24 12:30 Inhibitor codeine AdvReac Nausea and Verified 11/12/24 12:30 Vomiting meperidine (From Demerol) AdvReac Vomiting Verified 11/12/24 12:30 Review of Systems 2 Review of Systems: All systems reviewed & are unremarkable except as noted in HPI and below PMFSH Past Medical History Medical History Cholecystectomy planned Thyroid disorder GERD (gastroesophageal reflux disease) Arthritis Asthma Hypercholesterolemia Hypertension Meniere disease Surgical History Surgical History H/O lumpectomy S/P LASIK surgery H/O pyeloplasty H/O: hysterectomy Hx of appendectomy Hx of tonsillectomy Family History Family History Mother Alcoholism Depression Heart problem Daughter Alcoholism Asthma Heart problem Trigeminal neuralgia Brain aneurysm Son Alcoholism Father Hypertension Sibling Hypertension Grandparent Heart problem Cerebrovascular accident Social History Social History Smoking status: Never smoker Alcohol intake: current Alcohol use details: One glass 5 times a month- Beer, whisky, wine, vodka, gin Substance use: never Do You Feel Safe in your Home?: Yes Lack of Transportation: YES Lack of Food: Never True Current Housing: I Have Housing Concerned About Future Housing: No Difficulty Paying Gas/Electric Bills: No Difficulty Paying for Meds: No Currently Unemployed: No Education: Associate Degree Difficulty w/ Childcare or Family Care: No Exam 2 Narrative: General appearance: Well-developed, well-nourished, looking tired Head: Normocephalic, nontraumatic Eyes: Clear conjunctiva ENT: Oropharynx normal, ears normal, nose normal Neck: Supple, nontender Chest and respiratory: Airway patent, no respiratory distress, no accessory muscle use Heart: Regular rate/rhythm Abdomen: Soft, nontender, no organomegaly, quiet bowel sounds Vascular: Normal peripheral pulses, normal capillary refill. Musculoskeletal: Normal range of motion, nontender back Neurologic: Alert and oriented ?3, [employer] UT[employer] WORKER is normal as tested, no gross motor deficit Course Vital Signs Vital signs: Vital Signs Temperature 36.4 C 11/12/24 12:28 Pulse Rate 84 11/12/24 12:28 Respiratory Rate 16 11/12/24 12:28 Blood Pressure 163/67 H 11/12/24 12:28 Pulse Oximetry 97 11/12/24 12:28 Temperature 36.6 C 11/12/24 14:39 Pulse Rate 65 11/12/24 16:47 Respiratory Rate 12 11/12/24 16:47 Blood Pressure 113/59 L 11/12/24 16:47 Pulse Oximetry 95 11/12/24 16:47 Oxygen Delivery Room Air 11/12/24 14:55 Medical Decision Making MDM Narrative Medical decision making narrative: Patient came to the ED feeling exhausted Vital signs are stable Physical examination patient looks generally weak and tired Differential diagnosis include, viral syndrome, electrolyte imbalance, dehydration, pneumonia, new respiratory viral infection Blood workup includes CBC, CMP, blood culture x2, lactic acid, WBC 11.6, LACTIC ACID 2.9, MAGNESIUM 2.4, BMP 230 Chest x-ray showed NO ACUTE ABNORMALITY ABG on room air showed NO SIGNIFICANT ABNORMALITY EKG showed NO ACUTE ABNORMALITY PATIENT WEAKNESS HIGH LIKELY SECONDARY TO THE COMPLICATION OF RSV INFECTION. AND PHYSICAL INACTIVITY IN THE FEW WEEKS Differential Diagnosis Differential Diagnosis: ABOVE Vital Signs Vital Signs: Vital Signs Temperature 36.4 C 11/12/24 12:28 Pulse Rate 84 11/12/24 12:28 Respiratory Rate 16 11/12/24 12:28 Blood Pressure 163/67 H 11/12/24 12:28 Pulse Oximetry 97 11/12/24 12:28 Temperature 36.6 C 11/12/24 14:39 Pulse Rate 65 11/12/24 16:47 Respiratory Rate 12 11/12/24 16:47 Blood Pressure 113/59 L 11/12/24 16:47 Pulse Oximetry 95 11/12/24 16:47 Oxygen Delivery Room Air 11/12/24 14:55 Lab Data 11/12/24 14:39 11/12/24 14:40 Labs: Lab Results 11/12/24 11/12/24 Range/Units 14:39 14:40 WBC 11.6 H (4.5-10.0) K/mm3 RBC 4.78 (4.2-5.4) M/mm3 Hgb 13.9 (12.0-15.0) g/dL Hct 42.9 (37.0-47.0) % MCV 89.7 (80-100) fl MCH 29.1 (26-34) pg MCHC 32.4 (32-36) g/dl RDW 15.4 H (11.5-14.5) % Plt Count 305 (150-375) k/mm3 MPV 9.9 (7.4-10.4) fl Immature Gran % (Auto) 1.6 H (0-0.5) % Neut % (Auto) 79.1 H (45.5-73.1) % Lymph % (Auto) 14.9 L (18.3-44.2) % Early % (Auto) 4.0 (2.6-8.5) % Eos % (Auto) 0.1 (0-4.4) % Baso % (Auto) 0.3 (0.2-1.2) % Lymph # (Auto) 1.73 (0.9-3.2) K/mm3 Early # (Auto) 0.5 (0.1-0.6) K/mm3 Eos # (Auto) 0.0 (0-0.3) K/mm3 Baso # (Auto) 0.0 (0.0-0.1) K/mm3 Abs Immat Gran (auto) 0.18 H (0.00-0.031) K/mm3 Absolute Neuts (auto) 9.2 H (1.3-6.7) K/mm3 Absolute Nucleated RBC 0.000 (0.0-0.012) K/mm3 Nucleated RBC % 0.0 (0.0-0.2) % PT 12.4 (11.1-14.7) Seconds INR 0.9 APTT 20.6 L (22.3-36.8) Seconds D-Dimer 0.40 (<0.48) ug/mL Sodium 136 L (137-145) mmol/L Potassium 4.4 (3.4-5.0) mmol/L Chloride 100 (98-107) mmol/L Carbon Dioxide 27 (22-30) mmol/L Anion Gap 9 (4-12) mmol/L BUN 15 D (7-17) mg/dL Creatinine 0.54 L (0.7-1.0) mg/dL Estim Creat Clear Calc 68 ml/min Estimated GFR > 60 (59 - ) Glucose 124 H (65-110) mg/dL Lactic Acid 2.9 H (0.7-2.0) mmol/L Calcium 9.2 (8.4-10.2) mg/dL Magnesium 2.4 H (1.6-2.3) mg/dL Total Bilirubin 0.6 (0.2-1.3) mg/dL AST 21 (14-36) U/L ALT 39 H (6-35) U/L Alkaline Phosphatase 94 (38-126) U/L Troponin I < 0.012 (0.000-0.034) ng/mL NT-Pro-B Natriuret Pep 230 H (19.9-100) pg/mL Total Protein 7.0 (6.3-8.2) g/dL Albumin 3.9 (3.5-5.1) g/dL Influenza A (RT-PCR) Negative (Negative) Influenza B (RT-PCR) Negative (Negative) RSV (RT-PCR) Negative (Negative) SARS-CoV-2 RNA (RT-PCR) Negative (Negative) ABG Data ABG results: 11/12/24 14:27 Puncture Site Right brachial ABG pH 7.481 H ABG pCO2 33.9 L ABG pO2 97.0 ABG PO2/FiO2 Ratio 4.62 ABG HCO3 24.7 ABG O2 Saturation 97.8 ABG O2 Content 19.4 ABG Base Excess 1.8 A-a Gradient 12.1 Oxyhemoglobin 96.8 Total Hemoglobin 14.2 O2 Delivery Device Room air O2 Liters/Min Not Reportable FiO2 21 Imaging Data Radiologist's impression: Impressions Chest X-Ray 11/12/24 14:11 Impression: 1: No acute cardiopulmonary disease. ECG Data EKG #1: Attestation: I personally reviewed and interpreted this ECG as follows: ECG completion date: 11/12/24 Interpretation: NORMAL SALINE AT 80 BEATS PER MINUTE, LEFT VENTRICULAR HYPERTROPHY, BORDERLINE ST T-WAVE ABNORMALITY, BORDERLINE EKG NO PREVIOUS EKG AVAILABLE FOR COMPARISON Critical Care Time Critical Care Time Critical Care Time: No Discharge Plan Discharge Clinical Impression: Weakness Patient Disposition: Home, Self-Care Condition: Stable Instructions: Weakness (ED) Additional Instructions: RETURN IF SYMPTOMS ARE WORSENING , CALL YOUR FAMILY PHYSICIAN FOR APPOINTMENT, TAKE TYLENOL NEEDED FOR ACHES AND PAIN, CONTINUE HOME MEDICATIONS. Patient Language: Serbian Prescriptions: No Action niacin 500 mg Tablet 500 mg PO DAILY magnesium oxide 400 mg magnesium Tablet 400 mg PO DAILY ascorbate calcium (vitamin C) 500 mg tablet 500 mg PO BID cholecalciferol (vitamin D3) 50 mcg (2,000 unit) tablet 50 mcg PO DAILY zinc acetate 25 mg (zinc) capsule 25 mg PO DAILY ferrous sulfate 325 mg (65 mg iron) tablet 325 mg PO DAILY mecobalamin (vitamin B12) 1,000 mcg tablet,disintegrating 1,000 mcg sublingual DAILY Rx Instructions: place tablet under tongue and allow to dissolve for at least30 secs before swallowing aspirin [Adult Low Dose Aspirin] 81 mg tablet,delayed release (DR/EC) 81 mg PO DAILY pantoprazole 40 mg tablet,delayed release (DR/EC) 40 mg PO QAM Qty: 90 1RF amlodipine 10 mg tablet 10 mg PO DAILY Qty: 90 1RF hydrochlorothiazide 25 mg tablet 25 mg PO DAILY Qty: 90 1RF ezetimibe [Zetia] 10 mg tablet 10 mg PO DAILY Qty: 90 1RF lisinopril 30 mg tablet 30 mg PO DAILY Qty: 90 1RF levothyroxine 75 mcg tablet See Rx Instructions .ROUTE .COMPLEX Qty: 90 1RF Dose Instruction: TAKE 1 TABLET BY MOUTH EVERY DAY Rx Instructions: TAKE 1 TABLET BY MOUTH EVERY DAY fluticasone propion-salmeterol [Advair Diskus] 250-50 mcg/dose blister with device 1 inh inhalation BID Qty: 60 3RF Follow-up/Referrals: Rosario Sexton DO [Primary Care Provider] -
[2024-11-12 14:34] LABS: Alveolar/Arterial O2 Gradient 12.1 mmHg; Base Excess ABG 1.8 mEq/l (+/-2.0); Fractional Inspired Oxygen 21 %; HCO3 ABG 24.7 mEq/l (22.0-26.0); Oxygen Content ABG 19.4 %vol (16.0-22.0); Oxygen Saturation ABG 97.8 % (95.0-100.0); Oxyhemoglobin 96.8 % THb (90.0-100.0); PCO2 ABG 33.9 mmHg (35.0-45.0); PO2 FiO2 Ratio Arterial Blood 4.62 %; Total Hemoglobin 14.2 g/dL (12.0-18.0); pH ABG 7.481 (7.350-7.450)
[2024-11-12 14:35] LABS: Device ROOM AIR; Site Drawn RIGHT BRACHIAL
[2024-11-12 14:39] VITALS: BP 149/73; PULSE 61; RESP 18; TEMP 36.6; O2SAT 97
[2024-11-12 14:45] VITALS: O2SAT 96
--- OUTSIDE RECORDS SUMMARY | 2024-11-12 14:45 | XMS_ITS | Clinical Summary ---
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 RN TO OBSERVE AND ASSESS, SQUASH CENTRE MANAGER/SLOPE TENDER TO OBSERVE FOR RISK FOR FALLS AND INSTRUCT IN FALL PREVENTION, HOME SAFETY, MEDICATION MANAGEMENT, INFECTION PREVENTION, AND NUTRITION MANAGEMENT. RN/SQUASH CENTRE MANAGER/SLOPE TENDER NURSE MAY PERFORM O2 SATURATION LEVEL ON ADMISSION AND PRN FOR EVERY VISIT FOR RN TO ASSESS/SQUASH CENTRE MANAGER TO OBSERVE PATIENT, WITH NOTIFICATION TO THE PHYSICIAN IF SATURATION IS 90% IN THE ABSENCE OF MORE SPECIFIC PARAMETERS FROM THE PHYSICIAN. AGENCY MAY PERFORM A RESUMPTION OF CARE VISIT FOLLOWING ANY HOSPITAL ADMISSION. RN/SQUASH CENTRE MANAGER/SLOPE TENDER TO MONITOR CO-MORBID CONDITIONS LISTED ON THE PLAN OF CARE AND ANY NEW CONDITIONS THAT PRESENT THEMSELVES DURING THIS EPISODE TO IDENTIFY CHANGES AND INTERVENE TO MINIMIZE COMPLICATIONS. [code = RN TO OBSERVE, ASSESS, EVALUATE, AND DEVELOP AN INDIVIDUALIZED PLAN OF CARE. AGENCY MAY ACCEPT ORDERS FROM CONSULTING PHYSICIANS . RN TO OBSERVE AND ASSESS, SQUASH CENTRE MANAGER/SLOPE TENDER TO OBSERVE FOR RISK FOR FALLS AND INSTRUCT IN FALL PREVENTION, HOME SAFETY, MEDICATION MANAGEMENT, INFECTION PREVENTION, AND NUTRITION MANAGEMENT. RN/SQUASH CENTRE MANAGER/SLOPE TENDER NURSE MAY PERFORM O2 SATURATION LEVEL ON ADMISSION AND PRN FOR EVERY VISIT FOR RN TO ASSESS/SQUASH CENTRE MANAGER TO OBSERVE PATIENT, WITH NOTIFICATION TO THE PHYSICIAN IF SATURATION IS 90% IN THE ABSENCE OF MORE SPECIFIC PARAMETERS FROM THE PHYSICIAN. AGENCY MAY PERFORM A RESUMPTION OF CARE VISIT FOLLOWING ANY HOSPITAL ADMISSION. RN/SQUASH CENTRE MANAGER/SLOPE TENDER TO MONITOR CO-MORBID CONDITIONS LISTED ON THE PLAN OF CARE AND ANY NEW CONDITIONS THAT PRESENT THEMSELVES DURING THIS EPISODE TO IDENTIFY CHANGES AND INTERVENE TO MINIMIZE COMPLICATIONS.] Future Scheduled Test MEDICATION MANAGEMENT; RN/SQUASH CENTRE MANAGER/SLOPE TENDER TO REVIEW MEDICATIONS FOR INTERACTIONS, EFFECTIVENESS OF DRUG THERAPY, AND SIGNS/SYMPTOMS OF ADVERSE REACTIONS. MAY INSTRUCT AND REINFORCE MEDICATION TEACHING RELATED TO THE USE OF MEDICATIONS, DOSAGE, FREQUENCY, PURPOSE, SIDE EFFECTS, AND TO REPORT COMPLICATIONS. [code = MEDICATION MANAGEMENT; RN/SQUASH CENTRE MANAGER/SLOPE TENDER TO REVIEW MEDICATIONS FOR INTERACTIONS, EFFECTIVENESS OF DRUG THERAPY, AND SIGNS/SYMPTOMS OF ADVERSE REACTIONS. MAY INSTRUCT AND REINFORCE MEDICATION TEACHING RELATED TO THE USE OF MEDICATIONS, DOSAGE, FREQUENCY, PURPOSE, SIDE EFFECTS, AND TO REPORT COMPLICATIONS.] Future Scheduled Test RISK FOR H OSPITALIZATION; RN TO ASSESS/TEACH, SLOPE TENDER/SQUASH CENTRE MANAGER TO OBSERVE/TEACH PATIENT/CAREGIVER ON RISK FOR HOSPITALIZATION/EMERGENCY ROOM VISITS, TEACH SIGNS AND SYMPTOMS THAT PUT PATIENT AT RISK, WHEN TO NOTIFY NURSE/PHYSICIAN OF COMPLICATIONS/DECLINE, AND WHEN TO CALL 911. [code = RISK FOR HOSPITALIZATION; RN TO ASSESS/TEACH, SLOPE TENDER/SQUASH CENTRE MANAGER TO OBSERVE/TEACH PATIENT/CAREGIVER ON RISK FOR HOSPITALIZATION/EMERGENCY ROOM VISITS, TEACH SIGNS AND SYMPTOMS THAT PUT PATIENT AT RISK, WHEN TO NOTIFY NURSE/PHYSICIAN OF COMPLICATIONS/DECLINE, AND WHEN TO CALL 911.] Future Scheduled Test CARDIOVASC ULAR SYSTEM; RN TO ASSESS/TEACH, SQUASH CENTRE MANAGER/SLOPE TENDER TO OBSERVE/TEACH RELATED TO ALTERED CARDIOVASCULAR STATUS TO MINIMIZE COMPLICATIONS AND REDUCE HOSPITALIZATION. [code = CARDIOVASCULAR SYSTEM; RN TO ASSESS/TEACH, SQUASH CENTRE MANAGER/SLOPE TENDER TO OBSERVE/TEACH RELATED TO ALTERED CARDIOVASCULAR STATUS TO MINIMIZE COMPLICATIONS AND REDUCE HOSPITALIZATION.] Future Scheduled Test HYPERTENSI ON MANAGEMENT; RN TO ASSESS AND TEACH, SQUASH CENTRE MANAGER/SLOPE TENDER TO OBSERVE AND TEACH WARNING SIGNS AND SYMPTOMS TO AVOID HOSPITALIZATION. [code = HYPERTENSION MANAGEMENT; RN TO ASSESS AND TEACH, SQUASH CENTRE MANAGER/SLOPE TENDER TO OBSERVE AND TEACH WARNING SIGNS AND SYMPTOMS TO AVOID HOSPITALIZATION.] Future Scheduled Test ARRHYTHMIA MANAGEMENT; RN TO ASSESS AND TEACH, SQUASH CENTRE MANAGER/SLOPE TENDER TO OBSERVE AND TEACH WARNING SIGNS AND SYMPTOMS TO AVOID HOSPITALIZATION. [code = ARRHYTHMIA MANAGEMENT; RN TO ASSESS AND TEACH, SQUASH CENTRE MANAGER/SLOPE TENDER TO OBSERVE AND TEACH WARNING SIGNS AND SYMPTOMS TO AVOID HOSPITALIZATION.] Future Scheduled Test RESPIRATOR Y SYSTEM MANAGEMENT; RN TO ASSESS AND TEACH, SQUASH CENTRE MANAGER/SLOPE TENDER TO OBSERVE AND TEACH RELATED TO ALTERED RESPIRATORY STATUS TO MINIMIZE COMPLICATIONS AND REDUCE HOSPITALIZATION. [code = RESPIRATORY SYSTEM MANAGEMENT; RN TO ASSESS AND TEACH, SQUASH CENTRE MANAGER/SLOPE TENDER TO OBSERVE AND TEACH RELATED TO ALTERED RESPIRATORY STATUS TO MINIMIZE COMPLICATIONS AND REDUCE HOSPITALIZATION.] Future Scheduled Test PNEUMONIA MANAGEMENT; RN TO ASSESS AND TEACH, SQUASH CENTRE MANAGER/SLOPE TENDER TO OBSERVE AND TEACH SIGNS OF PNEUMONIA EXACERBATION AND PROVIDE EARLY INTERVENTIONS TO MINIMIZE RISK OF HOSPITALIZATION. [code = PNEUMONIA MANAGEMENT; RN TO ASSESS AND TEACH, SQUASH CENTRE MANAGER/SLOPE TENDER TO OBSERVE AND TEACH SIGNS OF PNEUMONIA EXACERBATION AND PROVIDE EARLY INTERVENTIONS TO MINIMIZE RISK OF HOSPITALIZATION.] Future Scheduled Test PAIN MANAG EMENT; RN TO ASSESS AND TEACH, SLOPE TENDER/SQUASH CENTRE MANAGER TO OBSERVE AND TEACH AND PROVIDE EDUCATION ON PAIN MANAGEMENT TECHNIQUES. [code = PAIN MANAGEMENT; RN TO ASSESS AND TEACH, SLOPE TENDER/SQUASH CENTRE MANAGER TO OBSERVE AND TEACH AND PROVIDE EDUCATION ON PAIN MANAGEMENT TECHNIQUES.] Future Scheduled Test GENITOURIN MENDOZA MANAGEMENT; RN TO ASSESS AND TEACH, SQUASH CENTRE MANAGER/SLOPE TENDER TO OBSERVE AND TEACH RELATED TO ALTERED GENITOURINARY STATUS TO MINIMIZE COMPLICATIONS AND REDUCE HOSPITALIZATION. [code = GENITOURINARY MANAGEMENT; RN TO ASSESS AND TEACH, SQUASH CENTRE MANAGER/SLOPE TENDER TO OBSERVE AND TEACH RELATED TO ALTERED GENITOURINARY STATUS TO MINIMIZE COMPLICATIONS AND REDUCE HOSPITALIZATION.] Future Scheduled Test URINARY CU LTURE AND SENSITIVITY PROTOCOL UP TO 2 PRN RN/SQUASH CENTRE MANAGER/SLOPE TENDER VISITS MAY BE PERFORMED FOR S/S OF UTI. RN TO ASSESS, SQUASH CENTRE MANAGER/SLOPE TENDER TO OBSERVE INITIATION OF UTI PROTOCOL. RN/SLOPE TENDER/SQUASH CENTRE MANAGER TO INSTRUCT PATIENT AND/OR CAREGIVER ON S/S OF UTI TO REPORT TO RN/SQUASH CENTRE MANAGER/SLOPE TENDER IF NEW OR WORSENING SYMPTOMS. DRINK PLENTY OF WATER THROUGHOUT THE DAY TO MAINTAIN HYDRATION (UNLESS CONTRAINDICATED.) URINATE WHEN THE URGE IS FELT, DO NOT WAIT. WASH GENITALS DAILY. WIPE FROM FRONT TO BACK AFTER HAVING A BOWEL MOVEMENT. RN/SLOPE TENDER/SQUASH CENTRE MANAGER TO OBTAIN UA WITH C/S VIA CLEAN CATCH URINE AND IF UNABLE TO OBTAIN MAY PERFORM AN IN AND OUT CATH. IF PATIENT HAS INDWELLING CATHETER MAY OBTAIN FROM SAMPLING PORT. NOTIFY PROVIDER OF RESULTS AND OBTAIN FURTHER ORDERS. [code = URINARY CULTURE AND SENSITIVITY PROTOCOL UP TO 2 PRN RN/SQUASH CENTRE MANAGER/SLOPE TENDER VISITS MAY BE PERFORMED FOR S/S OF UTI. RN TO ASSESS, SQUASH CENTRE MANAGER/SLOPE TENDER TO OBSERVE INITIATION OF UTI PROTOCOL. RN/SLOPE TENDER/SQUASH CENTRE MANAGER TO INSTRUCT PATIENT AND/OR CAREGIVER ON S/S OF UTI TO REPORT TO RN/SQUASH CENTRE MANAGER/SLOPE TENDER IF NEW OR WORSENING SYMPTOMS. DRINK PLENTY OF WATER THROUGHOUT THE DAY TO MAINTAIN HYDRATION (UNLESS CONTRAINDICATED.) URINATE WHEN THE URGE IS FELT, DO NOT WAIT. WASH GENITALS DAILY. WIPE FROM FRONT TO BACK AFTER HAVING A BOWEL MOVEMENT. RN/SLOPE TENDER/SQUASH CENTRE MANAGER TO OBTAIN UA WITH C/S VIA CLEAN CATCH URINE AND IF UNABLE TO OBTAIN MAY PERFORM AN IN AND OUT CATH. IF PATIENT HAS INDWELLING CATHETER MAY OBTAIN FROM SAMPLING PORT. NOTIFY PROVIDER OF RESULTS AND OBTAIN FURTHER ORDERS.] Future Scheduled Test URINARY IN CONTINENCE MANAGEMENT; RN TO ASSESS AND TEACH, SQUASH CENTRE MANAGER/LVNTO OBSERVE AND TEACH MANAGEMENT OF URINARY INCONTINENCE. TEACH/INSTRUCT ON PREVENTING INFECTION AND SKIN BREAKDOWN. RN/SQUASH CENTRE MANAGER/SLOPE TENDER MAY INSTRUCT IN BLADDER TRAINING PROGRAM INDICATED. [code = URINARY INCONTINENCE MANAGEMENT; RN TO ASSESS AND TEACH, SQUASH CENTRE MANAGER/LVNTO OBSERVE AND TEACH MANAGEMENT OF URINARY INCONTINENCE. TEACH/INSTRUCT ON PREVENTING INFECTION AND SKIN BREAKDOWN. RN/SQUASH CENTRE MANAGER/SLOPE TENDER MAY INSTRUCT IN BLADDER TRAINING PROGRAM INDICATED.] Future Scheduled Test URINARY TR ACT INFECTION MANAGEMENT; RN/SLOPE TENDER/SQUASH CENTRE MANAGER TO PROVIDE SKILLED TEACHING AND SELF- CARE MANAGEMENT RELATED TO UTI TO MINIMIZE COMPLICATIONS AND REDUCE THE RISK OF HOSPITALIZATION. [code = URINARY TRACT INFECTION MANAGEMENT; RN/SLOPE TENDER/SQUASH CENTRE MANAGER TO PROVIDE SKILLED TEACHING AND SELF- CARE MANAGEMENT RELATED TO UTI TO MINIMIZE COMPLICATIONS AND REDUCE THE RISK OF HOSPITALIZATION.] Future Scheduled Test URINARY MO LECULAR TESTING PROTOCOL UP TO 2 PRN RN/SQUASH CENTRE MANAGER/SLOPE TENDER VISITS MAY BE PERFORMED FOR S/S OF UTI. RN TO ASSESS, SQUASH CENTRE MANAGER/SLOPE TENDER TO OBSERVE INITIATION OF UTI PROTOCOL. RN/SLOPE TENDER/SQUASH CENTRE MANAGER TO INSTRUCT PATIENT AND/OR CAREGIVER ON S/S OF UTI TO REPORT TO RN/SLOPE TENDER/SQUASH CENTRE MANAGER IF NEW OR WORSENING SYMPTOMS. DRINK PLENTY OF WATER THROUGHOUT THE DAY TO MAINTAIN HYDRATION (UNLESS CONTRAINDICATED.) URINATE WHEN THE URGE IS FELT, DO NOT WAIT. WASH GENITALS DAILY. WIPE FROM FRONT TO BACK AFTER HAVING A BOWEL MOVEMENT. RN/SLOPE TENDER/SQUASH CENTRE MANAGER TO OBTAIN MOLECULAR URINE TESTING BY OPTION 1 OR OPTION 2 (OPTION 1) RN/SLOPE TENDER/SQUASH CENTRE MANAGER TO OBTAIN U/A WITH REFLEX TO UTI PANEL (MOLECULAR) VIA CLEAN CATCH URINE AND IF UNABLE TO OBTAIN MAY PERFORM AN IN AND OUT CATH. IF PATIENT HAS INDWELLING CATHETER MAY OBTAIN FROM SAMPLING PORT. (OPTION 2) RN/SLOPE TENDER/SQUASH CENTRE MANAGER TO OBTAIN UTI PANEL (MOLECULAR) VIA SWAB COLLECTION METHOD FROM ADULT BRIEF/DIAPER OR PAD IF PATIENT IS INCONTINENT. NOTIFY PROVIDER OF RESULTS AND OBTAIN FURTHER ORDERS. [code = URINARY MOLECULAR TESTING PROTOCOL UP TO 2 PRN RN/SQUASH CENTRE MANAGER/SLOPE TENDER VISITS MAY BE PERFORMED FOR S/S OF UTI. RN TO ASSESS, SQUASH CENTRE MANAGER/SLOPE TENDER TO OBSERVE INITIATION OF UTI PROTOCOL. RN/SLOPE TENDER/SQUASH CENTRE MANAGER TO INSTRUCT PATIENT AND/OR CAREGIVER ON S/S OF UTI TO REPORT TO RN/SLOPE TENDER/SQUASH CENTRE MANAGER IF NEW OR WORSENING SYMPTOMS. DRINK PLENTY OF WATER THROUGHOUT THE DAY TO MAINTAIN HYDRATION (UNLESS CONTRAINDICATED.) URINATE WHEN THE URGE IS FELT, DO NOT WAIT. WASH GENITALS DAILY. WIPE FROM FRONT TO BACK AFTER HAVING A BOWEL MOVEMENT. RN/SLOPE TENDER/SQUASH CENTRE MANAGER TO OBTAIN MOLECULAR URINE TESTING BY OPTION 1 OR OPTION 2 (OPTION 1) RN/SLOPE TENDER/SQUASH CENTRE MANAGER TO OBTAIN U/A WITH REFLEX TO UTI PANEL (MOLECULAR) VIA CLEAN CATCH URINE AND IF UNABLE TO OBTAIN MAY PERFORM AN IN AND OUT CATH. IF PATIENT HAS INDWELLING CATHETER MAY OBTAIN FROM SAMPLING PORT. (OPTION 2) RN/SLOPE TENDER/SQUASH CENTRE MANAGER TO OBTAIN UTI PANEL (MOLECULAR) VIA SWAB COLLECTION METHOD FROM ADULT BRIEF/DIAPER OR PAD IF PATIENT IS INCONTINENT. NOTIFY PROVIDER OF RESULTS AND OBTAIN FURTHER ORDERS.] Future Scheduled Test FALL REDUC TION MANAGEMENT; RN TO ASSESS AND OBSERVE, SQUASH CENTRE MANAGER/SLOPE TENDER TO OBSERVE FALL RISK FACTORS AND EDUCATE PATIENT/CAREGIVER ON STRATEGIES TO MINIMIZE THE RISK OF FALLING. [code = FALL REDUCTION MANAGEMENT; RN TO ASSESS AND OBSERVE, SQUASH CENTRE MANAGER/SLOPE TENDER TO OBSERVE FALL RISK FACTORS AND EDUCATE PATIENT/CAREGIVER ON STRATEGIES TO MINIMIZE THE RISK OF FALLING.] Future Scheduled Test ASTHMA MAN AGEMENT; RN TO ASSESS AND TEACH, SQUASH CENTRE MANAGER/SLOPE TENDER TO OBSERVE AND TEACH ASTHMA MANAGEMENT AND PROVIDE EARLY INTERVENTIONS TO MINIMIZE RISK OF HOSPITALIZATION [code = ASTHMA MANAGEMENT; RN TO ASSESS AND TEACH, SQUASH CENTRE MANAGER/SLOPE TENDER TO OBSERVE AND TEACH ASTHMA MANAGEMENT AND PROVIDE EARLY INTERVENTIONS TO MINIMIZE RISK OF HOSPITALIZATION] Future Scheduled Test PRN VISITS ; NUMBER OF RN/SQUASH CENTRE MANAGER/SLOPE TENDER VISITS: 1 RN/SQUASH CENTRE MANAGER/SLOPE TENDER TO PERFORM: RESPIRATORY MANAGEMENT FOR THE FOLLOWING REASONS: COMPLICATIONS [code = PRN VISITS; NUMBER OF RN/SQUASH CENTRE MANAGER/SLOPE TENDER VISITS: 1 RN/SQUASH CENTRE MANAGER/SLOPE TENDER TO PERFORM: RESPIRATORY MANAGEMENT FOR THE FOLLOWING [...] TO EVALUATE, OBSERVE / ASSESS, AND MONITOR, UTILITY ARBORIST TO OBSERVE AND MONITOR, PROVIDE SKILLED THERAPEUTIC INTERVENTION, ACTIVITY, EDUCATION, AND TRAINING TO ADDRESS SAFETY AND INDEPENDENCE OF ADLS AND FUNCTIONAL TRANSFERS IN HOME ENVIRONMENT. ACTIVITIES OF DAILY LIVING (OT/UTILITY ARBORIST) TOILET TRANSFER (OT/UTILITY ARBORIST) BATH/SHOWER TRANSFER (OT/JOSÉ) THERAPEUTIC EXERCISE (OT/UTILITY ARBORIST) ENERGY CONSERVATION/ACTIVITY DEMAND (OT/JOSÉ) OT/UTILITY ARBORIST TO MONITOR AND EDUCATE ON OXYGEN SATURATION DURING ADLS/IADLS, NOTIFY PHYSICIAN AND/OR THE RN CLINICAL GRAIN HANDLER FOR PHYSICIAN NOTIFICATION AND IF O2 SATS BELOW 90% AFTER 10 MIN OF REST. OT / UTILITY ARBORIST TO IDENTIFY FALL RISK FACTORS; EDUCATE THE [...] TRANSFER (OT/JOSÉ) BATH/SHOWER TRANSFER (OT/JOSÉ) THERAPEUTIC EXERCISE (OT/UTILITY ARBORIST) ENERGY CONSERVATION/ACTIVITY DEMAND (OT/UTILITY ARBORIST) OT/UTILITY ARBORIST TO MONITOR AND EDUCATE ON OXYGEN SATURATION DURING ADLS/IADLS, NOTIFY PHYSICIAN AND/OR THE RN CLINICAL GRAIN HANDLER FOR PHYSICIAN NOTIFICATION AND IF O2 SATS BELOW 90% AFTER 10 MIN OF REST. OT / UTILITY ARBORIST TO IDENTIFY FALL RISK FACTORS; EDUCATE THE PATIENT/CAREGIVER ON WAYS TO REDUCE FALL RISK FACTORS AND ESTABLISH HOME EXERCISE PROGRAM TO MINIMIZE FALL RISK. MAY TEACH THE PATIENT FLOOR RECOVERY WHEN CLINICALLY APPROPRIATE. OT/JOSÉ TO EDUCATE ON HYPERTENSION SELF-MANAGEMENT OT/UTILITY ARBORIST TO EDUCATE ON ATRIAL FIBRILLATION SELF-MANAGEMENT.] Goal [...] End Date/Time Encounter Type Admission Type Attending [facility] Facility Care Department Encounter ID Discharge Date Discharge Status Discharge Condition Discharge Reason Percent Goals Met 2024-11-06 00:00:00 2025-01-04 00:00:00 Outpatient NEW [facility] [id number]
--- NOTE | 2024-11-12 14:46 | ECG_ITS ---
Test Date: 2024-11-12 14:46:42 Measurements Intervals [place] Rate: 60 P: 71 OK: 182 QRS: -10 QRSD: 97 T: 3 QT: 437 QTc: 437 Interpretive Statements SINUS RHYTHM LEFT VENTRICULAR HYPERTROPHY BORDERLINE ST-T WAVE ABNORMALITY- INFERIOR LEADS BORDERLINE ECG Compared to ECG 11/12/2024 14:44:55 NO SIGNIFICANT CHANGE Electronically Signed On 11-12-2024 15:55:22 MACHINES TECHNICIAN by Pino Espinal D.O.
--- OUTSIDE RECORDS SUMMARY | 2024-11-12 14:46 | XMS_ITS | Encounter Summary ---
Author Organization [facility] [employer] [facility] Address [address] [place] [address] Phone Care Team Providers Care Whitewasher Name Role Phone Abdulaziz Verasleonardo CHOPRA Primary Care Pr ovider Clarisse Kenny MD Unavailable [phone] Josh Harris MD Primary Care Provide r Ken Mckeon MD Unavailable [phone] Kiana Read NP Unavailable [phone] Rosario Sexton DO Primary Care Provider + [...] on file Legal Sex Female 9:01 AM CREATIVE WRITER Gender Identity Not on file Sexual Orientation [...] COVID: Suspected 10/29/2024 10/29/2024 10/29/2024 7:24 PM CREATIVE WRITER RSV, droplet 10/29/2024 10/29/2024 11/05/2024 3:07 AM CREATIVE WRITER documented as of this encounter Care Teams Whitewasher Relationship Specialty Start Date End Date Eda Hui KEYSHA Lozano PCP - General Physician Car Repairer Helper 10/01/19 09/20/21 Josh Harris MD [address] [facility] [address] [place] [address] PCP - General Internal Medicine 09/21/21 04/08/23 Rosario Sexton DO [address] [facility] [address] [place] [address] PCP - General Family Medicine 04/09/23 Clarisse Kenny MD [address] [facility] [address] [place] [address] Medical Oncologist/Test Fixture Designer Medical Oncology 11/03/20 Ken Mckeon MD [address] [facility] [address] [place] [address] Consulting Physician Cardiology 11/04/21 Kiana Read NP [address] [facility] [address] [place] [address] Nurse Practitioner Medical Oncology 11/04/21 documented as of this encounter
--- OUTSIDE RECORDS SUMMARY | 2024-11-12 14:46 | XMS_ITS | Clinical Summary ---
Author Organization [facility] Address [address] [place] [address] Care Team Providers Care Safety Person Name Role Phone Clarisse Kenny MD Unavailable [phone] Ken Mckeon MD Unavailable [phone] Kiana Read NP Unavailable [phone] Rosario Sexton DO Primary Care Provider + [...] Department Care Team Description 10/29/2024 8:23 PM LEGAL TECHNICIAN - 11/03/2024 12:40 PM LEGAL TECHNICIAN Hospital Encounter [place] [address] Med [address] [place] [address] Markus Prado MD Sada, MD Jamar Vázquez, Paevl Staley MD Community acquired pneumonia (Primary Dx); [...] drink = 0.6 oz pur e alcohol) [facility] Utilities Answer Date Recorded In the past 12 months has th e [employer], gas, oil, or water [employer] threatened to shut off services in your [...] often do you attend chur ch or jainism services? Never 10/30/2024 Do you belong to any clubs o r organizations such as evangelical groups, unions, fraternal or athletic groups, or [...] No 10/30/2024 Housing Stability Vital Sign Answer Inno e Recorded In the last 12 months, was t here a time when you were not able to pay the mortgage or rent on time? No 10/30/2024 In the past 12 months, how m any times have you moved where you were living? 0 10/30/2024 At any time in the past 12 m [facility], were you homeless or living in a [...] on file Legal Sex Female 9:01 AM LEGAL TECHNICIAN Gender Identity Not on file Sexual Orientation Not on file Obstetrics History Last Filed Vital Signs Vital Sign Reading Time Taken Comments Blood Pressure 136/68 11/03/2024 6:18 AM LEGAL TECHNICIAN Pulse 72 11/03/2024 9:00 AM LEGAL TECHNICIAN Temperature 36.6 C (97.9 F) 11/03/2024 6:18 AM LEGAL TECHNICIAN Respiratory Rate 18 11/03/2024 8:20 AM LEGAL TECHNICIAN Oxygen Saturation 98% 11/03/2024 8:20 AM LEGAL TECHNICIAN Inhaled Oxygen Concentration - - Weight 86.8 kg (191 lb 5.8 oz) 11/03/2024 6:00 A M LEGAL TECHNICIAN Height 152.4 cm (5') 10/30/2024 12:28 PM LEGAL TECHNICIAN Body Mass Index 37.37 10/30/2024 12:28 PM LEGAL TECHNICIAN Plan of Treatment Health Maintenance Due Date Last Done Comments Depression Screening 1938 DTaP/Tdap/Td Vaccine (1 - Tdap) 1949 Hepatitis B Screening 1956 Zoster Vaccine (1 of 2) 1988 Well Visit 65+ 2003 Influenza Vaccine (#1) 2024 Fall Risk Assessment 11/03/2025 11/03/2024 Pneumococcal vaccine 65+ Completed 05/01/2017, 03/25 Procedures Procedure Name Priority Date/Time Associated Diagnosis Comments EGFR Routine 11/02/2024 8:00 AM LEGAL TECHNICIAN BASIC METABOLIC PANEL Routine 11/02/2024 8:00 AM LEGAL TECHNICIAN CBC WITHOUT DIFFERENTIAL Routine 11/02/2024 8:00 AM LEGAL TECHNICIAN INCENTIVE SPIROMETRY RT Routine 11/02/2024 4:00 AM LEGAL TECHNICIAN INCENTIVE SPIROMETRY RT Routine 11/02/2024 12:00 AM LEGAL TECHNICIAN INCENTIVE SPIROMETRY RT Routine 11/01/2024 8:00 PM LEGAL TECHNICIAN INCENTIVE SPIROMETRY RT Routine 11/01/2024 8:00 AM LEGAL TECHNICIAN CBC WITHOUT DIFFERENTIAL Routine 11/01/2024 3:44 AM LEGAL TECHNICIAN EGFR Routine 11/01/2024 3:40 AM LEGAL TECHNICIAN BASIC METABOLIC PANEL Routine 11/01/2024 3:40 AM LEGAL TECHNICIAN XR CHEST 1 VIEW IP Routine 10/31/2024 10:42 AM LEGAL TECHNICIAN INCENTIVE SPIROMETRY RT Routine 10/31/2024 4:00 AM LEGAL TECHNICIAN INCENTIVE SPIROMETRY RT Routine 10/31/2024 12:00 AM LEGAL TECHNICIAN INCENTIVE SPIROMETRY RT Routine 10/30/2024 8:00 PM LEGAL TECHNICIAN LEGIONELLA ANTIGEN, URINE Routine 10/30/2024 6:14 PM LEGAL TECHNICIAN STREP PNEUMONIAE AG, URINE Routine 10/30/2024 6:14 PM LEGAL TECHNICIAN INCENTIVE SPIROMETRY RT Routine 10/30/2024 8:02 AM LEGAL TECHNICIAN EGFR Routine 10/30/2024 7:30 AM LEGAL TECHNICIAN CBC WITHOUT DIFFERENTIAL Routine 10/30/2024 7:30 AM LEGAL TECHNICIAN BASIC METABOLIC PANEL Routine 10/30/2024 7:30 AM LEGAL TECHNICIAN INCENTIVE SPIROMETRY RT Routine 10/30/2024 4:00 AM LEGAL TECHNICIAN INCENTIVE SPIROMETRY RT Routine 10/30/2024 1:13 AM LEGAL TECHNICIAN INCENTIVE SPIROMETRY RT Routine 10/30/2024 1:13 AM LEGAL TECHNICIAN INCENTIVE SPIROMETRY RT Routine 10/30/2024 1:13 AM LEGAL TECHNICIAN BLOOD CULTURE STAT 10/29/2024 10:18 PM LEGAL TECHNICIAN SEPSIS LACTATE WITH REFLEX STAT 10/29/2024 10:09 PM LEGAL TECHNICIAN BLOOD CULTURE STAT 10/29/2024 10:09 PM LEGAL TECHNICIAN URINALYSIS, MICROSCOPIC ONLY STAT 10/29/2024 8:43 PM LEGAL TECHNICIAN URINALYSIS AND REFLEX TO MICROSCOPIC AND CULTURE STAT 10/29/2024 8:43 PM LEGAL TECHNICIAN XR CHEST PA LATERAL 2 VIEWS ED 10/29/2024 7:11 PM LEGAL TECHNICIAN INFLUENZA A/B, RSV, AND COVID-19 PCR STAT 10/29/2024 6:18 PM LEGAL TECHNICIAN EGFR STAT 10/29/2024 6:16 PM LEGAL TECHNICIAN DIFFERENTIAL AUTO STAT 10/29/2024 6:1 6 PM LEGAL TECHNICIAN COMPREHENSIVE METABOLIC PANEL STAT 10/29/2024 6:16 PM LEGAL TECHNICIAN CBC WITH AUTO DIFFERENTIAL STAT 10/29/2024 6:16 PM LEGAL TECHNICIAN ECG 12-LEAD STAT 10/29/2024 6:03 PM LEGAL TECHNICIAN from Last 3 Months Results * eGFR (11/02/2024 8:00 AM LEGAL TECHNICIAN) eGFR 88 >=60 mL/min/1. 73 m2 Comment: [...] was last reviewed 2021. Testing performed by: [address] [address] Blood 11/02/2024 8:00 AM LEGAL TECHNICIAN 11/02/2024 9:11 AM LEGAL TECHNICIAN us Pavel Roldan MD LAB BLOOD ORDERABLES Fi nal Result MOOK [address] [facility] Department [place] [address] * (ABNORMAL) CBC without differential (11/02/2024 8:00 AM LEGAL TECHNICIAN) WBC 9.7 3.8 - 9.9 K/cumm Comment:Testing performed by : [address] [address] Hgb 12.9 11.9 - 15.5 g/dL MOOK GARAY Comment:Testing performed by : [address] [address] Hct 38.3 35.6 - 45.5 % MOOK GARAY Comment:Testing performed by : [address] [address] Plt 417(H) 150 - 400 K/cumm MOOK GARAY Comment:Testing performed by : [address] [address] MPV 9.4 9.1 - 12.3 fL MOOK GARAY Comment:Testing performed by : [address] [address] RBC 4.40 3.90 - 5.20 M/cumm MOOK GARAY Comment:Testing performed by : [address] [address] MCV 87.0 81.3 - 96.4 fL MOOK GARAY Comment:Testing performed by : [address] [address] MCH 29.3 27.1 - 33.3 pg MOOK GARAY Comment:Testing performed by : [address] [address] MCHC 33.7 32.3 - 35.7 g/dL MOOK GARAY Comment:Testing performed by : [address] [address] RDW CV 14.3 11.1 - 14.9 % MOOK GARAY Comment:Testing performed by : [address] [address] RDW SD 45.5 35.7 - 48.1 fL MOOK GARAY Comment:Testing performed by : [address] [address] NRBC abs 0.00 0.00 - 0.01 K/cumm MOOK GARAY Comment:Testing performed by : [address] [address] Blood 11/02/2024 8:00 AM LEGAL TECHNICIAN 11/02/2024 9:11 AM LEGAL TECHNICIAN us Pavel Roldan MD LAB BLOOD ORDERABLES Fi nal Result MOOK [address] [facility] Department of Laboratories [place], [place] [id number] * (ABNORMAL) Basic metabolic panel (11/02/2024 8:00 AM LEGAL TECHNICIAN) [facility] Sodium 140 135 - 145 mmol/L Comment:Testing performed by : [address] [address] Potassium, pl 3.9 3.3 - 4.9 mmol/L MOOK GAARY Comment: Hemolyzed; Potassium value may be falsely elevated by as much as 1.0 mmol/L. Suggest redraw and reanalysis. Testing performed by: [address] [address] Chloride 104 97 - 110 mmol/L MOOK GARAY Comment:Testing performed by : [address] [address] CO2 25 22 - 32 mmol/L MOOK GARAY Comment:Testing performed by : [address] [address] Anion gap 11 2 - 15 mmol/L MOOK GARAY Comment:Testing performed by : [address] [address] BUN 24 6 - 25 mg/dL MOOK Comment:Testing performed by : [address] [address] Creatinine 0.58(L) 0.60 - 1.10 mg/dL MOOK Comment:Testing performed by : [address] [address] Glucose 157 70 - 199 mg/dL MOOK [...] was last revised 2022. Testing performed by: [address] [address] Calcium 9.4 8.5 - 10.3 mg/dL MOOK Comment:Testing performed by : [address] [address] Blood 11/02/2024 8:00 AM LEGAL TECHNICIAN 11/02/2024 9:11 AM LEGAL TECHNICIAN us Pavel Roldan MD LAB BLOOD ORDERABLES Fi nal Result MOOK [address] [facility] Department [place] [address] * CBC without differential (11/01/2024 3:44 AM LEGAL TECHNICIAN) WBC 6.9 3.8 - 9.9 K/cumm Comment:Testing performed by : [address] [address] Hgb 12.7 11.9 - 15.5 g/dL MOOK Comment:Testing performed by : [address], [address] Hct 38.6 35.6 - 45.5 % MOOK Comment:Testing performed by : [address] [address] Plt 347 150 - 400 K/cumm MOOK Comment:Testing performed by : [address] [address] MPV 9.7 9.1 - 12.3 fL MOOK Comment:Testing performed by : [address], [address] RBC 4.35 3.90 - 5.20 M/cumm MOOK Comment:Testing performed by : [address] [address] MCV 88.7 81.3 - 96.4 fL MOOK Comment:Testing performed by : [address], [address] MCH 29.2 27.1 - 33.3 pg MOOK Comment:Testing performed by : [address] [address] MCHC 32.9 32.3 - 35.7 g/dL MOOK Comment:Testing performed by : [address], [address] RDW CV 14.4 11.1 - 14.9 % MOOK Comment:Testing performed by : [address], [address] RDW SD 47.0 35.7 - 48.1 fL MOOK Comment:Testing performed by : [address], [address] NRBC abs 0.00 0.00 - 0.01 K/cumm MOOK Comment:Testing performed by : [address] [address] Blood 11/01/2024 3:44 AM LEGAL TECHNICIAN 11/01/2024 4:50 AM LEGAL TECHNICIAN Pavel Roldan MD LAB BLOOD ORDERABLES Fi nal Result Performing Organization Address [facility] Co de Phone Number MOOK [address] [place] [address] * eGFR (11/01/2024 3:40 AM LEGAL TECHNICIAN) eGFR 89 >=60 mL/min/1. 73 m2 Comment: [...] was last reviewed 2021. Testing performed by: [address] [address] Blood 11/01/2024 3:40 AM LEGAL TECHNICIAN 11/01/2024 4:48 AM LEGAL TECHNICIAN Pavel Roldan MD LAB BLOOD ORDERABLES Fi nal Result Performing Organization Address City/[facility]/ZIP Co de Phone Number MOOK [address] [place] [address] * (ABNORMAL) Basic metabolic panel (11/01/2024 3:40 AM LEGAL TECHNICIAN) Sodium 141 135 - 145 mmol/L Comment:Testing performed by : [address] [address] Potassium, pl 4.2 3.3 - 4.9 mmol/L MOOK GARAY Comment: Hemolyzed; Potassium value may be falsely elevated by as much as 1.0 mmol/L. Suggest redraw and reanalysis. Testing performed by: [address] [address] Chloride 104 97 - 110 mmol/L MOOK Comment:Testing performed by : [address] [address] CO2 24 22 - 32 mmol/L MOOK Comment:Testing performed by : [address] [address] Anion gap 13 2 - 15 mmol/L MOOK Comment:Testing performed by : [address] [address] BUN 19 6 - 25 mg/dL MOOK Comment:Testing performed by : [address] [address] Creatinine 0.55(L) 0.60 - 1.10 mg/dL MOOK Comment:Testing performed by : [address] [address] Glucose 167 70 - 199 mg/dL MOOK [...] was last revised 2022. Testing performed by: [address] [address] Calcium 9.4 8.5 - 10.3 mg/dL MOOK Comment:Testing performed by : [address] [address] Blood 11/01/2024 3:40 AM LEGAL TECHNICIAN 11/01/2024 4:48 AM LEGAL TECHNICIAN Pavel Roldan MD LAB BLOOD ORDERABLES Fi nal Result MOOK MH [address] [facility] Department [place] [address] * XR Chest 1 View (10/31/2024 10:42 AM LEGAL TECHNICIAN) Anatomical Region Laterality Modality Body, Chest N/A Computed Radiogr aphy 10/31/2024 12:4 9 PM LEGAL TECHNICIAN Narrative 10/31/2024 12:52 PM LEGAL TECHNICIAN EXAM DESCRIPTION: XR CHEST 1 VIEW REASON [...] Deven Cooley M.D. AM: AM Report ID: [id number] Reading Location: [id number] Procedure Note Deven Cooley MD - 10/31/2024 [...] Deven Cooley M.D. AM: AM Report ID: [id number] Reading Location: [id number] Pavel Roldan MD IMG XR PROCEDURES Final Result * Strep pneumoniae antigen, urine Urine (10/30/2024 6:14 PM LEGAL TECHNICIAN) S. pneumoniae Ag Negative Negative Comment: Interpretive [...] revised on 2022 Urine 10/30/2024 6:14 PM LEGAL TECHNICIAN 10/30/2024 8:09 PM LEGAL TECHNICIAN Anika Cooney MD LAB MICROBIOLOG Y - GENERAL ORDERABLES Final Result [facility] [address] [facility] Department of Laboratories [place], [place] [id number] * Legionella antigen Urine (10/30/2024 6:14 PM LEGAL TECHNICIAN) Legionella Ag Negative Negative Comment: Interpretive Data This test detects only Legionella pneumophila serogroup 1 antigen. Testing performed by [facility] ([phone]). Current interpretive data was last revised on 2019. Testing performed by: [facility], [address] [facility] [place]., [address] Urine 10/30/2024 6:14 PM LEGAL TECHNICIAN 10/30/2024 11:50 PM LEGAL TECHNICIAN Anika Cooney MD LAB MICROBIOLOG Y - GENERAL ORDERABLES Final Result Performing Organization Address [facility] Co de Phone Number MOOK [address] [facility] [place] [address] * eGFR (10/30/2024 7:30 AM LEGAL TECHNICIAN) eGFR 84 >=60 mL/min/1. 73 m2 Comment: [...] was last reviewed 2021. Testing performed by: [address] [address] Blood 10/30/2024 7:30 AM LEGAL TECHNICIAN 10/30/2024 7:46 AM LEGAL TECHNICIAN Anika Cooney MD LAB BLOOD ORDER MARCO A Final Result Performing Organization Address [facility] Co de Phone Number MOOK [address] [facility] [employer] [place], [place] [id number] * (ABNORMAL) CBC without differential (10/30/2024 7:30 AM LEGAL TECHNICIAN) WBC 11.6(H) 3.8 - 9.9 K/cumm Comment:Testing performed by : [address] [address] Hgb 14.9 11.9 - 15.5 g/dL MOOK Comment:Testing performed by : [address] [address] Hct 45.4 35.6 - 45.5 % MOOK Comment:Testing performed by : [address] [address] Plt 313 150 - 400 K/cumm MOOK Comment:Testing performed by : [address] [address] MPV 10.2 9.1 - 12.3 fL MOOK Comment:Testing performed by : [address], [address] RBC 5.12 3.90 - 5.20 M/cumm MOOK Comment:Testing performed by : [address], [address] MCV 88.7 81.3 - 96.4 fL MOOK Comment:Testing performed by : [address] [address] MCH 29.1 27.1 - 33.3 pg MOOK Comment:Testing performed by : [address], [address] MCHC 32.8 32.3 - 35.7 g/dL MOOK Comment:Testing performed by : [address], [address] RDW CV 14.0 11.1 - 14.9 % MOOK Comment:Testing performed by : [address], [address] RDW SD 46.1 35.7 - 48.1 fL MOOK Comment:Testing performed by : [address], [address] NRBC abs 0.00 0.00 - 0.01 K/cumm MOOK Comment:Testing performed by : [address] [address] Blood 10/30/2024 7:30 AM LEGAL TECHNICIAN 10/30/2024 7:47 AM LEGAL TECHNICIAN us Anika Cooney MD LAB BLOOD ORDER MARCO A Final Result MOOK [address] [facility] Department [place] [address] * (ABNORMAL) Basic metabolic panel (10/30/2024 7:30 AM LEGAL TECHNICIAN) Sodium 137 135 - 145 mmol/L Comment:Testing performed by : [address] [address] Potassium, pl 4.2 3.3 - 4.9 mmol/L MOOK Comment: HEMOLYZED: Hemolysis interferes with the above test. Delta - Results Reviewed Testing performed by: [address] [address] Chloride 100 97 - 110 mmol/L MOOK Comment:Testing performed by : [address] [address] CO2 19(L) 22 - 32 mmol/L MOOK Comment:Testing performed by : [address] [address] Anion gap 18(H) 2 - 15 mmol/L MOOK Comment:Testing performed by : [address] [address] BUN 23 6 - 25 mg/dL MOOK Comment:Testing performed by : [address] [address] Creatinine 0.70 0.60 - 1.10 mg/dL MOOK Comment:Testing performed by : [address] [address] Glucose 167 70 - 199 mg/dL MOOK [...] was last revised 2022. Testing performed by: [facility], [address] [place] [address]., [address] Calcium 9.5 8.5 - 10.3 mg/dL MOOK GARAY Comment:Testing performed by : [facility], [address] [place] [address]., [address] Blood 10/30/2024 7:30 AM LEGAL TECHNICIAN 10/30/2024 7:46 AM LEGAL TECHNICIAN Anika Cooney MD LAB BLOOD ORDER MARCO A Final Result MOOK GARAY [address] [facility] Department [place] [address] * Blood culture Blood Peripheral (10/29/2024 10:18 PM LEGAL TECHNICIAN) Report Final Report: No growth Comment:Testing performed by : [facility], [address] [place]., [address] Blood (Peripheral) 10/29/2024 10:18 PM LEGAL TECHNICIAN 10/30/2024 2:55 AM LEGAL TECHNICIAN Narrative MOOK GARAY - 11/03/2024 7:00 AM LEGAL TECHNICIAN From a different site than #1. Draw [...] performance characteristics have been verified by the [facility]. For questions about this culture, contact the Microbiology Laboratory at [phone]. Interpretive data was last revised on 24. Markus Prado MD LAB MICROBIOLOGY - GENERAL ORD ERABLES Final Result Performing Organization Address City/[facility]/ZIP Co de Phone Number MOOK [address] [address] * Sepsis Lactate w/ Reflex (10/29/2024 10:09 PM LEGAL TECHNICIAN) Sepsis Lactate 1.3 0.7 - 2.0 mmol/L Comment:Testing performed by : [facility], [address] [place] [address]., [address] Blood 10/29/2024 10:0 9 PM LEGAL TECHNICIAN 10/29/2024 10:27 PM LEGAL TECHNICIAN Markus rPado MD LAB BLOOD ORDERABLES Final Res ult Performing Organization Address [facility]/ZIP Co de Phone Number [facility] [address] [place] [address] * Blood culture Blood Peripheral (10/29/2024 10:09 PM LEGAL TECHNICIAN) Report Final Report: No growth Comment:Testing performed by : [facility], [address] [place] [address] Blood (Peripheral) 10/29/2024 10:09 PM LEGAL TECHNICIAN 10/30/2024 2:55 AM LEGAL TECHNICIAN Narrative MOOK - 11/03/2024 7:00 AM LEGAL TECHNICIAN Draw Blood cultures before administration of Antibiotics [...] performance characteristics have been verified by the [facility]. For questions about this culture, contact the Microbiology Laboratory at [phone]. Interpretive data was last revised on 24. us Markus Prado MD LAB MICROBIOLOGY - GENERAL ORD ERABLES Final Result [facility] [address] [facility] Department [place] [address] * (ABNORMAL) Urinalysis reflex to microscopic and culture Urine (10/29/2024 8:43 PM LEGAL TECHNICIAN) Color, ur Yellow Yellow Comment:Testing performed by : [address] [address] Clarity, ur Cloudy(A) Clear MOOK Comment:Testing performed by : [address] [address] Specific gravity, ur 1.026 1.003 - 1.030 MOOK Comment:Testing performed by : [address] [address] pH, urine 5.0 MOOK Comment: Interpretive Data U rine pH is affected by diet, medications, systemic acid-base disturbances, and renal tubular function. pH may affect urinary stone formation. For example, urine pH below 6.0 may help reduce the tendency for calcium phosphate stones and pH greater than 6.0 may reduce the tendency for uric acid stone formation. Source: [facility] Current Interpretive Data was last revised on 2017 Testing performed by: [address] [address] Protein, ur ql Trace(A) Negative MOOK Comment:Testing performed by : [facility], [address] [place] [address], [place]., [address] Glucose, ur ql Negative Negative MOOK Comment:Testing performed by : [address], [place]., [address] Ketones, ur Negative Negative MOOK Comment:Testing performed by : [address], [place]., [address] Bilirubin, ur Negative Negative MOOK Comment:Testing performed by : [address], [place]., [address] Blood, ur Negative Negative MOOK Comment:Testing performed by : [address], [place]., [address] Urobilinogen, ur 2.0(A) <2.0 mg/dL MOOK Comment:Testing performed by : [address], [place]., [address] Nitrite, ur Negative Negative MOOK Comment:Testing performed by : [address], [place]., [address] Leukocyte esterase, ur 1+(A) Negative MOOK Comment:Testing performed by : [address], [place]., [address] UA reflex comment Reflex to microscopic UA will be performed. MOOK Comment:Testing performed by : [address], [place]., [address] Urine 10/29/2024 8:43 PM LEGAL TECHNICIAN 10/29/2024 8:52 PM LEGAL TECHNICIAN Zack Sparks DO LAB MICROBIOLOGY - GENERAL ORDERABLES Final Result MOOK [address] [facility] Department [place] [address] * (ABNORMAL) Urinalysis, microscopic only (10/29/2024 8:43 PM LEGAL TECHNICIAN) WBC, ur 0-5 0 - 5 /HPF Comment:Testing performed by : [address], [place]., [address] RBC, ur 3-5(A) 0 - 2 /HPF MOOK GARAY Comment:Testing performed by : [facility], [address] [place] [address]., [address] Epithelial cells, squamous, ur >50(A) 0 - 5 /HPF MOOK Comment:Testing performed by : [facility], [address] [place] [address]., [address] Mucous, ur Present(A) MOOK Comment:Testing performed by : [address] [address] Culture Reflex Comment Reflex conditions for urine culture (WBC >10) not met. MOOK Comment:Testing performed by : [facility], [address] [place] [address]., [address] Urine 10/29/2024 8:43 PM LEGAL TECHNICIAN 10/29/2024 8:52 PM LEGAL TECHNICIAN us Zack Sparks DO LAB URINE ORDERABLES Final Result Performing Organization Address City/State/[facility] Co de Phone Number MOOK [address] [facility] Department [place] [address] * XR Chest 2 views (10/29/2024 7:11 PM LEGAL TECHNICIAN) Anatomical Region Laterality Modality Body, Chest N/A Computed Radiogr aphy 10/29/2024 7:17 PM LEGAL TECHNICIAN Narrative 10/29/2024 7:18 PM LEGAL TECHNICIAN EXAM DESCRIPTION: XR CHEST PA LATERAL 2 [...] Jodie Tello D.O. PS: PS Report ID: [id number] Reading Location: [id number] Procedure Note Jodie Tello DO - 10/29/2024 [...] Jodie Tello D.O. PS: PS Report ID: [id number] Reading Location: [place] [address] Markus Prado MD IMG XR PROCEDURES Final Result * (ABNORMAL) Influenza A/B, RSV, and COVID-19 PCR Nasopharyngeal (10/29/2024 6:18 PM LEGAL TECHNICIAN) COVID-19 RNA Negative Negative Comment:Testing performed by : [address] [address] Influenza A RNA Negative Negative MOOK Comment:Testing performed by : [address] [address] Influenza B RNA Negative Negative MOOK Comment:Testing performed by : [address] [address] RSV RNA Positive(A) Negative MOOK Comment: Interpretive data: Testing performed by [facility]. This test is performed using the [employer] Xpert Xpress CoV-2/Flu/RSV plus assay. This is a multiplex, real-time reverse transcriptase PCR assay intended for the qualitative detection of nucleic acid from SARS-CoV-2, influenza A, influenza B, and respiratory syncytial virus. This assay has been cleared by the [place] Food and Drug administration. The performance characteristics have been verified by the [facility]. Results must be considered in the clinical context, and a negative result does not rule out infection. Interpretive Data last revised 2023 Testing performed by: [facility], [address] [place] [address], [place]., [address] Nasopharyngeal 10/29/2024 6: 18 PM LEGAL TECHNICIAN 10/29/2024 6:38 PM LEGAL TECHNICIAN Narrative MOOK - 10/29/2024 7:23 PM LEGAL TECHNICIAN Is the Patient experiencing symptoms consistent with COVID?->Yes Zack Sparks DO LAB MICROBIOLOGY - GENERAL ORDERABLES Final Result MOOK [address] [facility] Department [place] [address] * (ABNORMAL) eGFR (10/29/2024 6:16 PM LEGAL TECHNICIAN) eGFR 50(L) >=60 mL/min/1. 73 m2 Comment: [...] was last reviewed 2021. Testing performed by: [address] [address] Blood 10/29/2024 6:16 PM LEGAL TECHNICIAN 10/29/2024 6:38 PM LEGAL TECHNICIAN Zack Sparks DO LAB BLOOD ORDERABLES Final Result [facility] [address] [facility] Department [place] [address] * (ABNORMAL) Differential, auto (10/29/2024 6:16 PM LEGAL TECHNICIAN) Neutrophil abs 9.4(H) 1.5 - 6.5 K/cumm Comment:Testing performed by : [address] [address] Imm gran abs 0.1 0.0 - 0.1 K/cumm MOOK Comment:Testing performed by : [address] [address] Lymphocyte abs 2.4 0.8 - 3.3 K/cumm MOOK Comment:Testing performed by : [address] [address] Monocyte abs 1.1(H) 0.2 - 0.8 K/cumm MOOK Comment:Testing performed by : [address] [address] Eosinophil abs 0.1 0.0 - 0.5 K/cumm MOOK Comment:Testing performed by : [address] [address] Basophil abs 0.1 0.0 - 0.1 K/cumm MOOK Comment:Testing performed by : [address] [address] Neutrophil pct 71.2 % MOOK Comment: Interpretive Data Percent cell count reference ranges are not reported, since discordance with absolute values may lead to misinterpretation of CBC data. Current Interpretive Data was last revised on 2018. Testing performed by: [address] [address] Imm gran pct 0.8 % [facility] Comment: Interpretive Data Percent cell count reference ranges are not reported, since discordance with absolute values may lead to misinterpretation of CBC data. Current Interpretive Data was last revised on 2018. Testing performed by: [address] [address] Lymphocyte pct 18.5 % [facility] Comment: Interpretive Data Percent cell count reference ranges are not reported, since discordance with absolute values may lead to misinterpretation of CBC data. Current Interpretive Data was last revised on 2018. Testing performed by: [address] [address] Monocyte pct 8.3 % [facility] Comment: Interpretive Data Percent cell count reference ranges are not reported, since discordance with absolute values may lead to misinterpretation of CBC data. Current Interpretive Data was last revised on 2018. Testing performed by: [address] [address] Eosinophil pct 0.8 % [facility] Comment: Interpretive Data Percent cell count reference ranges are not reported, since discordance with absolute values may lead to misinterpretation of CBC data. Current Interpretive Data was last revised on 2018. Testing performed by: [address] [address] Basophil pct 0.4 % [facility] Comment: Interpretive Data Percent cell count reference ranges are not reported, since discordance with absolute values may lead to misinterpretation of CBC data. Current Interpretive Data was last revised on 2018. Testing performed by: [address] [address] Blood 10/29/2024 6:16 PM LEGAL TECHNICIAN 10/29/2024 6:38 PM LEGAL TECHNICIAN us Zack Sparks DO LAB BLOOD ORDERABLES Final Result [facility] [address] [facility] Department [place] [address] * (ABNORMAL) CBC with auto differential (10/29/2024 6:16 PM LEGAL TECHNICIAN) [facility] Signature WBC 13.2(H) 3.8 - 9.9 K/cumm Comment:Testing performed by : [address], [address] Hgb 14.6 11.9 - 15.5 g/dL MOOK Comment:Testing performed by : [address], [address] Hct 42.8 35.6 - 45.5 % MOOK Comment:Testing performed by : [address], [address] Plt 377 150 - 400 K/cumm MOOK Comment:Testing performed by : [address], [address] MPV 9.8 9.1 - 12.3 fL MOOK Comment:Testing performed by : [address], [address] RBC 5.00 3.90 - 5.20 M/cumm MOOK Comment:Testing performed by : [address], [address] MCV 85.6 81.3 - 96.4 fL MOOK Comment:Testing performed by : [address], [address] MCH 29.2 27.1 - 33.3 pg MOOK Comment:Testing performed by : [address], [address] MCHC 34.1 32.3 - 35.7 g/dL MOOK Comment:Testing performed by : [address], [address] RDW CV 14.3 11.1 - 14.9 % MOOK Comment:Testing performed by : [address], [address] RDW SD 44.9 35.7 - 48.1 fL MOOK Comment:Testing performed by : [address], [address] NRBC abs 0.00 0.00 - 0.01 K/cumm MOOK Comment:Testing performed by : [address] [address] Blood 10/29/2024 6:16 PM LEGAL TECHNICIAN 10/29/2024 6:38 PM LEGAL TECHNICIAN us Zack Sparks DO LAB BLOOD ORDERABLES Final Result [facility] [address] [facility] Department [place] [address] * (ABNORMAL) Comprehensive metabolic panel (10/29/2024 6:16 PM LEGAL TECHNICIAN) Sodium 137 135 - 145 mmol/L Comment:Testing performed by : [address] [address] Potassium, pl 3.2(L) 3.3 - 4.9 mmol/L MOOK Comment:Testing performed by : [address] [address] Chloride 98 97 - 110 mmol/L MOOK Comment:Testing performed by : [address] [address] CO2 24 22 - 32 mmol/L MOOK Comment:Testing performed by : [address] [address] Anion gap 15 2 - 15 mmol/L MOOK Comment:Testing performed by : [address] [address] BUN 31(H) 6 - 25 mg/dL MOOK Comment:Testing performed by : [address] [address] Creatinine 1.08 0.60 - 1.10 mg/dL MOOK Comment:Testing performed by : [address] [address] Glucose 128 70 - 199 mg/dL MOOK [...] was last revised 2022. Testing performed by: [address] [address] Calcium 9.7 8.5 - 10.3 mg/dL MOOK Comment:Testing performed by : [address] [address] Bilirubin, total 0.4 0.1 - 1.2 mg/dL MOOK Comment:Testing performed by : [address] [address] Protein, pl 7.6 6.5 - 8.5 g/dL MOOK Comment:Testing performed by : [address] [address] Albumin 3.9 3.5 - 5.0 g/dL MOOK Comment:Testing performed by : [address] [address] Alk phos 117 40 - 130 Units/L MOOK Comment:Testing performed by : [address] [address] ALT 33 7 - 45 Units/L MOOK Comment:Testing performed by : [address] [address] AST 30 10 - 45 Units/L MOOK Comment:Testing performed by : [address] [address] Blood 10/29/2024 6:16 PM LEGAL TECHNICIAN 10/29/2024 6:38 PM LEGAL TECHNICIAN us Zack Sparks DO LAB BLOOD ORDERABLES Final Result [facility] [address] [facility] Department [place] [address] * ECG 12 lead (10/29/2024 6:03 PM LEGAL TECHNICIAN) [facility] Ventricular Rate EKG/Min 89 BPM [facility] Atrial Rate 89 BPM [facility] IA-Interval (MSEC) 174 ms [facility] QRS-Interval (MSEC) 90 ms [facility] QT-Interval (MSEC) 364 ms [facility] QTc 442 ms [facility] P [place] 80 degrees [facility] R [place] -9 degrees [facility] T [place] 12 degrees [facility] Diagnosis Normal sinus rhythm Moderate voltage criteria for LVH, may be normal variant No previous ECGs available Confirmed by SULTAN OWENS M.D. ([id number]) on 10/29/2024 8:54:52 PM [facility] 10/29/2024 6:03 PM LEGAL TECHNICIAN 10/29/2024 8:54 PM LEGAL TECHNICIAN us Zack Sparks DO ECG ORDERABLES Final Resul t [facility] [place] Last 3 Months Insurance MEDICARE [facility] MEDICARE MEDICARE BLUE CROSS MEDICARE SUPPLEMENT Advance Directives For more information, please contact: [phone] * LIMITED - No CPR (Latest Code [...] 1:15 AM 10/30/2024 2:13 AM Care Teams Safety Person Relationship Specialty Start Date End Date SextonRosario castillo DO Aruna [address] [facility] [address] [place] [address] PCP - General Family Medicine 04/09/23 Clarisse Kenny MD [address] [facility] [address] [place], [place] [id number] Medical Oncologist/Transcribing Operators Supervisor Medical Oncology 11/03/20 Ken Mckeon MD [address] [facility] [address] [place], [place] [id number] Consulting Physician Cardiology 11/04/21 Kiana Read NP [address] [facility] [address] [place], [place] [phone] Nurse Practitioner Medical Oncology 11/04/21
--- OUTSIDE RECORDS SUMMARY | 2024-11-12 14:46 | XMS_ITS | Referral Summary ---
Author Organization [facility] Address [address] [place] [address] Care Team Providers Care [employer] Mechanic Helper Name Role Phone Clarisse Kenny MD Unavailable [phone] Ken Mckeon MD Unavailable [phone] Kiana Read NP Unavailable [phone] Rosario Sexton DO Primary Care Provider + Encounters Date Type Department Care Team Description 10/29/2024 8:23 PM [employer] - 11/03/2024 12:40 PM [employer] Hospital Encounter [place] [address] [address] [place] [address] Markus Prado MD Sada, MD Jamar [...] drink = 0.6 oz pur e alcohol) [facility] Utilities Answer Date Recorded In the past 12 months has e [employer], gas, oil, or water [employer] threatened to shut off services in your [...] often do you attend chur ch or denominational services? Never 10/30/2024 Do you belong to any clubs o r organizations such as protestant groups, unions, fraternal or athletic groups, or [...] any time in the past 12 m [facility], were you homeless or living in a custodial (including now)? No 10/30/2024 Personal Safety Answer Date Recorded Have you ever been in or are you currently in a harmful physical or emotional relationship or is someone making you feel afraid or unsafe? Denies 10/29/2024 Comments Unknown Sex and Gender Information Value Date Recorded Sex Assigned at Not on file Legal Sex Female 9:01 AM [employer] Gender Identity Not on file Sexual Orientation Not on file Last Filed Vital Signs Vital Sign Reading Time Taken Comments Blood Pressure 136/68 11/03/2024 6:18 AM [employer] Pulse 72 11/03/2024 9:00 AM [employer] Temperature 36.6 C (97.9 F) 11/03/2024 6:18 AM [employer] Respiratory Rate 18 11/03/2024 8:20 AM [employer] Oxygen Saturation 98% 11/03/2024 8:20 AM [employer] Inhaled Oxygen Concentration - - Weight 86.8 kg (191 lb 5.8 oz) 11/03/2024 6:00 A M [employer] Height 152.4 cm (5') 10/30/2024 12:28 PM [employer] Body Mass Index 37.37 10/30/2024 12:28 PM [employer] Plan of Treatment Not on file Procedures Procedure Name Priority Date/Time Associated Diagnosis Comments EGFR Routine 11/02/2024 8:00 AM [employer] BASIC METABOLIC PANEL Routine 11/02/2024 8:00 AM [employer] CBC WITHOUT DIFFERENTIAL Routine 11/02/2024 8:00 AM [employer] INCENTIVE SPIROMETRY RT Routine 11/02/2024 4:00 AM [employer] INCENTIVE SPIROMETRY RT Routine 11/02/2024 12:00 AM [employer] INCENTIVE SPIROMETRY RT Routine 11/01/2024 8:00 PM [employer] INCENTIVE SPIROMETRY RT Routine 11/01/2024 8:00 AM [employer] CBC WITHOUT DIFFERENTIAL Routine 11/01/2024 3:44 AM [employer] EGFR Routine 11/01/2024 3:40 AM [employer] BASIC METABOLIC PANEL Routine 11/01/2024 3:40 AM [employer] XR CHEST 1 VIEW IP Routine 10/31/2024 10:42 AM [employer] INCENTIVE SPIROMETRY RT Routine 10/31/2024 4:00 AM [employer] INCENTIVE SPIROMETRY RT Routine 10/31/2024 12:00 AM [employer] INCENTIVE SPIROMETRY RT Routine 10/30/2024 8:00 PM [employer] LEGIONELLA ANTIGEN, URINE Routine 10/30/2024 6:14 PM [employer] STREP PNEUMONIAE AG, URINE Routine 10/30/2024 6:14 PM [employer] INCENTIVE SPIROMETRY RT Routine 10/30/2024 8:02 AM [employer] EGFR Routine 10/30/2024 7:30 AM [employer] CBC WITHOUT DIFFERENTIAL Routine 10/30/2024 7:30 AM [employer] BASIC METABOLIC PANEL Routine 10/30/2024 7:30 AM [employer] INCENTIVE SPIROMETRY RT Routine 10/30/2024 4:00 AM [employer] INCENTIVE SPIROMETRY RT Routine 10/30/2024 1:13 AM [employer] INCENTIVE SPIROMETRY RT Routine 10/30/2024 1:13 AM [employer] INCENTIVE SPIROMETRY RT Routine 10/30/2024 1:13 AM [employer] BLOOD CULTURE STAT 10/29/2024 10:18 PM [employer] SEPSIS LACTATE WITH REFLEX STAT 10/29/2024 10:09 PM [employer] BLOOD CULTURE STAT 10/29/2024 10:09 PM [employer] URINALYSIS, MICROSCOPIC ONLY STAT 10/29/2024 8:43 PM [employer] URINALYSIS AND REFLEX TO MICROSCOPIC AND CULTURE STAT 10/29/2024 8:43 PM [employer] XR CHEST PA LATERAL 2 VIEWS ED 10/29/2024 7:11 PM [employer] INFLUENZA A/B, RSV, AND COVID-19 PCR STAT 10/29/2024 6:18 PM [employer] EGFR STAT 10/29/2024 6:16 PM [employer] DIFFERENTIAL AUTO STAT 10/29/2024 6:1 6 PM [employer] COMPREHENSIVE METABOLIC PANEL STAT 10/29/2024 6:16 PM [employer] CBC WITH AUTO DIFFERENTIAL STAT 10/29/2024 6:16 PM [employer] ECG 12-LEAD STAT 10/29/2024 6:03 PM [employer] from Last 3 Months Results * eGFR (11/02/2024 8:00 AM [employer]) eGFR 88 >=60 mL/min/1. 73 m2 Comment: [...] was last reviewed 2021. Testing performed by: [facility], [address] [place] [address]., [address] Blood 11/02/2024 8:00 AM [employer] 11/02/2024 9:11 AM [employer] us Pavel Roldan MD LAB BLOOD ORDERABLES Fi nal Result LEEANNPDN [address] [facility] Department [place] [address] * (ABNORMAL) CBC without differential (11/02/2024 8:00 AM [employer]) Pathologist [facility] WBC 9.7 3.8 - 9.9 K/cumm Comment:Testing performed by : [address] [address] Hgb 12.9 11.9 - 15.5 g/dL MOOK Comment:Testing performed by : [address] [address] Hct 38.3 35.6 - 45.5 % MOOK Comment:Testing performed by : [address] [address] Plt 417(H) 150 - 400 K/cumm MOOK Comment:Testing performed by : [address] [address] MPV 9.4 9.1 - 12.3 fL MOOK Comment:Testing performed by : [address], [address] RBC 4.40 3.90 - 5.20 M/cumm MOOK Comment:Testing performed by : [address] [address] MCV 87.0 81.3 - 96.4 fL MOOK Comment:Testing performed by : [address] [address] MCH 29.3 27.1 - 33.3 pg MOOK Comment:Testing performed by : [address] [address] MCHC 33.7 32.3 - 35.7 g/dL MOOK Comment:Testing performed by : [address] [address] RDW CV 14.3 11.1 - 14.9 % MOOK Comment:Testing performed by : [address] [address] RDW SD 45.5 35.7 - 48.1 fL MOOK Comment:Testing performed by : [address] [address] NRBC abs 0.00 0.00 - 0.01 K/cumm MOOK Comment:Testing performed by : [address] [address] Blood 11/02/2024 8:00 AM [employer] 11/02/2024 9:11 AM [employer] us Pavel Roldan MD LAB BLOOD ORDERABLES Fi nal Result [facility] [address] [facility] Department [place] [address] * (ABNORMAL) Basic metabolic panel (11/02/2024 8:00 AM [employer]) Sodium 140 135 - 145 mmol/L Comment:Testing performed by : [address] [address] Potassium, pl 3.9 3.3 - 4.9 mmol/L MOOK Comment: Hemolyzed; Potassium value may be falsely elevated by as much as 1.0 mmol/L. Suggest redraw and reanalysis. Testing performed by: [address] [address] Chloride 104 97 - 110 mmol/L MOOK Comment:Testing performed by : [address] [address] CO2 25 22 - 32 mmol/L MOOK Comment:Testing performed by : [address] [address] Anion gap 11 2 - 15 mmol/L MOOK Comment:Testing performed by : [address] [address] BUN 24 6 - 25 mg/dL MOOK Comment:Testing performed by : [address] [address] Creatinine 0.58(L) 0.60 - 1.10 mg/dL MOOK Comment:Testing performed by : [address] [address] Glucose 157 70 - 199 mg/dL MOOK [...] was last revised 2022. Testing performed by: [address] [address] Calcium 9.4 8.5 - 10.3 mg/dL MOOK GARAY Comment:Testing performed by : [address] [address] Blood 11/02/2024 8:00 AM [employer] 11/02/2024 9:11 AM [employer] us Pavel Roldan MD LAB BLOOD ORDERABLES Fi nal Result MOOK [address] [facility] Department of Laboratories [place], [place] [id number] * CBC without differential (11/01/2024 3:44 AM [employer]) WBC 6.9 3.8 - 9.9 K/cumm Comment:Testing performed by : [address] [address] Hgb 12.7 11.9 - 15.5 g/dL MOOK GARAY Comment:Testing performed by : [address] [address] Hct 38.6 35.6 - 45.5 % MOOK GARAY Comment:Testing performed by : [address] [address] Plt 347 150 - 400 K/cumm MOOK Comment:Testing performed by : [address] [address] MPV 9.7 9.1 - 12.3 fL MOOK GARAY Comment:Testing performed by : [address] [address] RBC 4.35 3.90 - 5.20 M/cumm OMOK GARAY Comment:Testing performed by : [address] [address] MCV 88.7 81.3 - 96.4 fL MOOK GARAY Comment:Testing performed by : [address] [address] MCH 29.2 27.1 - 33.3 pg MOOK GARAY Comment:Testing performed by : [facility], [address] [place] [address]., [address] MCHC 32.9 32.3 - 35.7 g/dL MOOK GARAY Comment:Testing performed by : [facility], [address] [place] [address]., [address] RDW CV 14.4 11.1 - 14.9 % MOOK GARAY Comment:Testing performed by : [address] [address] RDW SD 47.0 35.7 - 48.1 fL MOOK GARAY Comment:Testing performed by : [address] [address] NRBC abs 0.00 0.00 - 0.01 K/cumm MOOK GARAY Comment:Testing performed by : [address] [address] Blood 11/01/2024 3:44 AM [employer] 11/01/2024 4:50 AM [employer] us Pavel Roldan MD LAB BLOOD ORDERABLES Fi nal Result MOOK [address] [facility] Department [place] [address] * eGFR (11/01/2024 3:40 AM [employer]) eGFR 89 >=60 mL/min/1. 73 m2 Comment: [...] was last reviewed 2021. Testing performed by: [address] [address] Blood 11/01/2024 3:40 AM [employer] 11/01/2024 4:48 AM [employer] Pavel Roldan MD LAB BLOOD ORDERABLES Fi nal Result MOOK [address] [facility] Department [place] [address] * (ABNORMAL) Basic metabolic panel (11/01/2024 3:40 AM [employer]) Sodium 141 135 - 145 mmol/L Comment:Testing performed by : [address] [address] Potassium, pl 4.2 3.3 - 4.9 mmol/L MOOK Comment: Hemolyzed; Potassium value may be falsely elevated by as much as 1.0 mmol/L. Suggest redraw and reanalysis. Testing performed by: [address] [address] Chloride 104 97 - 110 mmol/L MOOK Comment:Testing performed by : [address] [address] CO2 24 22 - 32 mmol/L MOOK Comment:Testing performed by : [address] [address] Anion gap 13 2 - 15 mmol/L MOOK Comment:Testing performed by : [address] [address] BUN 19 6 - 25 mg/dL MOOK Comment:Testing performed by : [address] [address] Creatinine 0.55(L) 0.60 - 1.10 mg/dL MOOK Comment:Testing performed by : [address] [address] Glucose 167 70 - 199 mg/dL MOOK [...] was last revised 2022. Testing performed by: [facility], [address] [place] [address]., [address] Calcium 9.4 8.5 - 10.3 mg/dL MOOK GARAY Comment:Testing performed by : [address] [address] Blood 11/01/2024 3:40 AM [employer] 11/01/2024 4:48 AM [employer] Pavel Roldan MD LAB BLOOD ORDERABLES Fi nal Result MOOK GARAY [address] [facility] Department [place] [address] * XR Chest 1 View (10/31/2024 10:42 AM [employer]) Anatomical Region Laterality Modality Body, Chest N/A Computed Radiogr aphy 10/31/2024 12:4 9 PM [employer] Narrative 10/31/2024 12:52 PM [employer] EXAM DESCRIPTION: XR CHEST 1 VIEW REASON [...] Deven Cooley M.D. AM: AM Report ID: [id number] Reading Location: [id number] Procedure Note Deven Cooley MD - 10/31/2024 [...] Deven Cooley M.D. AM: AM Report ID: [id number] Reading Location: [id number] Pavel Roldan MD IMG XR PROCEDURES Final Result * Strep pneumoniae antigen, urine Urine (10/30/2024 6:14 PM [employer]) S. pneumoniae Ag Negative Negative Comment: Interpretive [...] revised on 2022 Urine 10/30/2024 6:14 PM [employer] 10/30/2024 8:09 PM [employer] Anika Cooney MD LAB MICROBIOLOG Y - GENERAL ORDERABLES Final Result Performing Organization Address [facility] Co de Phone Number MOOK [address] [address] * Legionella antigen Urine (10/30/2024 6:14 PM [employer]) Legionella Ag Negative Negative Comment: Interpretive Data This test detects only Legionella pneumophila serogroup 1 antigen. Testing performed by [facility] ([phone]). Current interpretive data was last revised on 2019. Testing performed by: [facility], [address] [place]., [address] Urine 10/30/2024 6:14 PM [employer] 10/30/2024 11:50 PM [employer] Anika Cooney MD LAB MICROBIOLOG Y - GENERAL ORDERABLES Final Result Performing Organization Address [facility] Co de Phone Number MOOK [address] [place] [address] * eGFR (10/30/2024 7:30 AM [employer]) eGFR 84 >=60 mL/min/1. 73 m2 Comment: [...] was last reviewed 2021. Testing performed by: [address] [address] Blood 10/30/2024 7:30 AM [employer] 10/30/2024 7:46 AM [employer] Anika Cooney MD LAB BLOOD ORDER MARCO A Final Result MOOK [address] [facility] Department [place] [address] * (ABNORMAL) CBC without differential (10/30/2024 7:30 AM [employer]) WBC 11.6(H) 3.8 - 9.9 K/cumm Comment:Testing performed by : [address] [address] Hgb 14.9 11.9 - 15.5 g/dL MOOK GARAY Comment:Testing performed by : [address] [address] Hct 45.4 35.6 - 45.5 % MOOK Comment:Testing performed by : [address] [address] Plt 313 150 - 400 K/cumm MOOK Comment:Testing performed by : [address] [address] MPV 10.2 9.1 - 12.3 fL MOOK Comment:Testing performed by : [address] [address] RBC 5.12 3.90 - 5.20 M/cumm MOOK GARAY Comment:Testing performed by : [address] [address] MCV 88.7 81.3 - 96.4 fL MOOK GARAY Comment:Testing performed by : [address] [address] MCH 29.1 27.1 - 33.3 pg MOOK GARAY Comment:Testing performed by : [address] [address] MCHC 32.8 32.3 - 35.7 g/dL MOOK GARAY Comment:Testing performed by : [address] [address] RDW CV 14.0 11.1 - 14.9 % MOOK GARAY Comment:Testing performed by : [address] [address] RDW SD 46.1 35.7 - 48.1 fL MOOK GARAY Comment:Testing performed by : [address] [address] NRBC abs 0.00 0.00 - 0.01 K/cumm MOOK GARAY Comment:Testing performed by : [address] [address] Blood 10/30/2024 7:30 AM [employer] 10/30/2024 7:47 AM [employer] Anika Cooney MD LAB BLOOD ORDER MARCO A Final Result MOOK [facility] [address] [facility] Department of Laboratories [place], [place] [id number] * (ABNORMAL) Basic metabolic panel (10/30/2024 7:30 AM [employer]) Sodium 137 135 - 145 mmol/L Comment:Testing performed by : [address] [address] Potassium, pl 4.2 3.3 - 4.9 mmol/L MOOK GARAY Comment: HEMOLYZED: Hemolysis interferes with the above test. Delta - Results Reviewed Testing performed by: [address] [address] Chloride 100 97 - 110 mmol/L MOOK GARAY Comment:Testing performed by : [address] [address] CO2 19(L) 22 - 32 mmol/L MOOK GARAY Comment:Testing performed by : [address] [address] Anion gap 18(H) 2 - 15 mmol/L MOOK Comment:Testing performed by : [address] [address] BUN 23 6 - 25 mg/dL MOOK Comment:Testing performed by : [address] [address] Creatinine 0.70 0.60 - 1.10 mg/dL MOOK Comment:Testing performed by : [address] [address] Glucose 167 70 - 199 mg/dL MOOK [...] was last revised 2022. Testing performed by: [address] [address] Calcium 9.5 8.5 - 10.3 mg/dL MOOK Comment:Testing performed by : [address] [address] Blood 10/30/2024 7:30 AM [employer] 10/30/2024 7:46 AM [employer] Anika Cooney MD LAB BLOOD ORDER MARC OA Final Result [facility] [address] [facility] Department [place] [address] * Blood culture Blood Peripheral (10/29/2024 10:18 PM [employer]) Report Final Report: No growth Comment:Testing performed by : [facility], [address] [facility]., [address] Blood (Peripheral) 10/29/2024 10:18 PM [employer] 10/30/2024 2:55 AM [employer] Narrative MOOK GARAY - 11/03/2024 7:00 AM [employer] From a different site than #1. Draw [...] performance characteristics have been verified by the [facility]biology [facility]. For questions about this culture, contact the Microbiology Laboratory at [phone]. Interpretive data was last revised on 24. Markus Prado MD LAB MICROBIOLOGY - GENERAL ORD ERABLES Final Result Performing Organization Address City/State/[facility] Co de Phone Number MOOK [address] [facility] Department [place] [address] * Sepsis Lactate w/ Reflex (10/29/2024 10:09 PM [employer]) [facility] Sepsis Lactate 1.3 0.7 - 2.0 mmol/L Comment:Testing performed by : [facility], [address] [place] [address]., [address] Blood 10/29/2024 10:0 9 PM [employer] 10/29/2024 10:27 PM [employer] Markus Prado MD LAB BLOOD ORDERABLES Final Res ult MOOK GARAY [address] [facility] Department [place] [address] * Blood culture Blood Peripheral (10/29/2024 10:09 PM [employer]) Report Final Report: No growth Comment:Testing performed by : [facility], [address] [facility] [place]., [address] Blood (Peripheral) 10/29/2024 10:09 PM [employer] 10/30/2024 2:55 AM [employer]ING [employer] [facility]ative [facility] 11/03/2024 7:00 AM [employer] Draw Blood cultures before administration of Antibiotics [...] performance characteristics have been verified by the [facility]. For questions about this culture, contact the Microbiology Laboratory at [phone]. Interpretive data was last revised on 24. us Markus Prado MD LAB MICROBIOLOGY - GENERAL ORD ERABLES Final Result Performing Organization Address [facility] Co de Phone Number MOOK GARAY [address] [facility] Department [place] [address] * (ABNORMAL) Urinalysis reflex to microscopic and culture Urine (10/29/2024 8:43 PM [employer]) Color, ur Yellow Yellow Comment:Testing performed by : [address] [address] Clarity, ur Cloudy(A) Clear MOOK Comment:Testing performed by : [facility], [address] [place] [address], [place]., [address] Specific gravity, ur 1.026 1.003 - 1.030 MOOK Comment:Testing performed by : [address] [address] pH, urine 5.0 MOOK Comment: Interpretive Data U rine pH is affected by diet, medications, systemic acid-base disturbances, and renal tubular function. pH may affect urinary stone formation. For example, urine pH below 6.0 may help reduce the tendency for calcium phosphate stones and pH greater than 6.0 may reduce the tendency for uric acid stone formation. Source: [facility] [place] Current Interpretive Data was last revised on 2017 Testing performed by: [address] [address] Protein, ur ql Trace(A) Negative MOOK Comment:Testing performed by : [address] [address] Glucose, ur ql Negative Negative MOOK Comment:Testing performed by : [address] [address] Ketones, ur Negative Negative MOOK Comment:Testing performed by : [address] [address] Bilirubin, ur Negative Negative MOOK Comment:Testing performed by : [address] [address] Blood, ur Negative Negative MOOK Comment:Testing performed by : [address] [address] Urobilinogen, ur 2.0(A) <2.0 mg/dL MOOK Comment:Testing performed by : [address] [address] Nitrite, ur Negative Negative MOOK Comment:Testing performed by : [address] [address] Leukocyte esterase, ur 1+(A) Negative MOOK Comment:Testing performed by : [address] [address] UA reflex comment Reflex to microscopic UA will be performed. MOOK Comment:Testing performed by : [address] [address] Urine 10/29/2024 8:43 PM [employer] 10/29/2024 8:52 PM [employer] Zack Sparks DO LAB MICROBIOLOGY - GENERAL ORDERABLES Final Result Performing Organization Address [facility] Co de Phone Number [address] [employer] [place] [address] * (ABNORMAL) Urinalysis, microscopic only (10/29/2024 8:43 PM [employer]) WBC, ur 0-5 0 - 5 /HPF Comment:Testing performed by : [address] [address] RBC, ur 3-5(A) 0 - 2 /HPF MOOK Comment:Testing performed by : [address] [address] Epithelial cells, squamous, ur >50(A) 0 - 5 /HPF MOOK Comment:Testing performed by : [address] [address] Mucous, ur Present(A) MOOK Comment:Testing performed by : [address] [address] Culture Reflex Comment Reflex conditions for urine culture (WBC >10) not met. MOOK Comment:Testing performed by : [address] [address] Urine 10/29/2024 8:43 PM [employer] 10/29/2024 8:52 PM [employer] Zack Sparks DO LAB URINE ORDERABLES Final Result Performing Organization Address [facility] Co de Phone Number [facility] [address] [facility] [employer] [place] [address] * XR Chest 2 views (10/29/2024 7:11 PM [employer]) Anatomical Region Laterality Modality Body, Chest N/A Computed Radiogr aphy 10/29/2024 7:17 PM [employer] Narrative 10/29/2024 7:18 PM [employer] EXAM DESCRIPTION: XR CHEST PA LATERAL 2 [...] Jodie Tello D.O. PS: PS Report ID: [id number] Reading Location: [id number] Procedure Note Tello Jodie Kelley, DO - [...] Jodie Tello D.O. PS: PS Report ID: [id number] Reading Location: [id number] us Markus Prado MD IMG XR PROCEDURES Final Result * (ABNORMAL) Influenza A/B, RSV, and COVID-19 PCR Nasopharyngeal (10/29/2024 6:18 PM [employer]) [facility] COVID-19 RNA Negative Negative Comment:Testing performed by : [address], [address] Influenza A RNA Negative Negative MOOK Comment:Testing performed by : [address] [address] Influenza B RNA Negative Negative [facility] Comment:Testing performed by : [address], [address] RSV RNA Positive(A) Negative MOOK Comment: Interpretive data: Testing performed by [facility]. This test is performed using the [employer] Xpert Xpress CoV-2/Flu/RSV plus assay. This is a multiplex, real-time reverse transcriptase PCR assay intended for the qualitative detection of nucleic acid from SARS-CoV-2, influenza A, influenza B, and respiratory syncytial virus. This assay has been cleared by the [place] Food and Drug administration. The performance characteristics have been verified by the [facility]. Results must be considered in the clinical context, and a negative result does not rule out infection. Interpretive Data last revised 2023 Testing performed by: [address] [address] Nasopharyngeal 10/29/2024 6: 18 PM [employer] 10/29/2024 6:38 PM [employer] Narrative MOOK - 10/29/2024 7:23 PM [employer] Is the Patient experiencing symptoms consistent with COVID?->Yes us Zack Sparks DO LAB MICROBIOLOGY - GENERAL ORDERABLES Final Result M[facility] [address] Department [place] [address] * (ABNORMAL) eGFR (10/29/2024 6:16 PM ELECTRICAL WIRING LINEMAN) [facility] eGFR 50(L) >=60 mL/min/1. 73 m2 Comment: [...] was last reviewed 2021. Testing performed by: [address] [address] Blood 10/29/2024 6:16 PM [employer] 10/29/2024 6:38 PM [employer] Zack Sparks DO LAB BLOOD ORDERABLES Final Result MOOK [address] [facility] Department [place] [address] * (ABNORMAL) Differential, auto (10/29/2024 6:16 PM ELECTR[employer]ING [employer]) [facility] Neutrophil abs 9.4(H) 1.5 - 6.5 K/cumm Comment:Testing performed by : [address] [address] Imm gran abs 0.1 0.0 - 0.1 K/cumm [facility] Comment:Testing performed by : [address] [address] Lymphocyte abs 2.4 0.8 - 3.3 K/cumm [facility] Comment:Testing performed by : [address] [address] Monocyte abs 1.1(H) 0.2 - 0.8 K/cumm [facility] Comment:Testing performed by : [address], [place]., [address] Eosinophil abs 0.1 0.0 - 0.5 K/cumm [facility] Comment:Testing performed by : [address], [place]., [address] Basophil abs 0.1 0.0 - 0.1 K/cumm [facility] Comment:Testing performed by : [address] [address] Neutrophil pct 71.2 % [facility] Comment: Interpretive Data Percent cell count reference ranges are not reported, since discordance with absolute values may lead to misinterpretation of CBC data. Current Interpretive Data was last revised on 2018. Testing performed by: [address] [address] Imm gran pct 0.8 % [facility] Comment: Interpretive Data Percent cell count reference ranges are not reported, since discordance with absolute values may lead to misinterpretation of CBC data. Current Interpretive Data was last revised on 2018. Testing performed by: [address] [address] Lymphocyte pct 18.5 % [facility] Comment: Interpretive Data Percent cell count reference ranges are not reported, since discordance with absolute values may lead to misinterpretation of CBC data. Current Interpretive Data was last revised on 2018. Testing performed by: [address] [address] Monocyte pct 8.3 % [facility] Comment: Interpretive Data Percent cell count reference ranges are not reported, since discordance with absolute values may lead to misinterpretation of CBC data. Current Interpretive Data was last revised on 2018. Testing performed by: [address] [address] Eosinophil pct 0.8 % [facility] [place] Comment: Interpretive Data Percent cell count reference ranges are not reported, since discordance with absolute values may lead to misinterpretation of CBC data. Current Interpretive Data was last revised on 2018. Testing performed by: [address] [address] Basophil pct 0.4 % [facility] Comment: Interpretive Data Percent cell count reference ranges are not reported, since discordance with absolute values may lead to misinterpretation of CBC data. Current Interpretive Data was last revised on 2018. Testing performed by: [address] [address] Blood 10/29/2024 6:16 PM [employer] 10/29/2024 6:38 PM [employer] us Zack Sparks DO LAB BLOOD ORDERABLES Final Result MOOK [address] [facility] Department [place] [address] * (ABNORMAL) CBC with auto differential (10/29/2024 6:16 PM [employer]) WBC 13.2(H) 3.8 - 9.9 K/cumm Comment:Testing performed by : [address] [address] Hgb 14.6 11.9 - 15.5 g/dL [facility] Comment:Testing performed by : [address] [address] Hct 42.8 35.6 - 45.5 % [facility] Comment:Testing performed by : [address] [address] Plt 377 150 - 400 K/cumm [facility] Comment:Testing performed by : [address] [address] MPV 9.8 9.1 - 12.3 fL [facility] Comment:Testing performed by : [address] [address] RBC 5.00 3.90 - 5.20 M/cumm [facility] Comment:Testing performed by : [address] [address] MCV 85.6 81.3 - 96.4 fL [facility] Comment:Testing performed by : [address] [address] MCH 29.2 27.1 - 33.3 pg [facility] Comment:Testing performed by : [address] [address] MCHC 34.1 32.3 - 35.7 g/dL [facility] Comment:Testing performed by : [address] [address] RDW CV 14.3 11.1 - 14.9 % [facility] Comment:Testing performed by : [address], [address] RDW SD 44.9 35.7 - 48.1 fL [facility] Comment:Testing performed by : [address] [address] NRBC abs 0.00 0.00 - 0.01 K/cumm MOOK Comment:Testing performed by : [address] [address] Blood 10/29/2024 6:16 PM [employer] 10/29/2024 6:38 PM [employer] Zack Sparks DO LAB BLOOD ORDERABLES Final Result Performing Organization Address City/State/[facility] Co de Phone Number MOOK [address] [facility] Department [place] [address] * (ABNORMAL) Comprehensive metabolic panel (10/29/2024 6:16 PM [employer]) Sodium 137 135 - 145 mmol/L Comment:Testing performed by : [address] [address] Potassium, pl 3.2(L) 3.3 - 4.9 mmol/L [facility] Comment:Testing performed by : [address] [address] Chloride 98 97 - 110 mmol/L [facility] Comment:Testing performed by : [address] [address] CO2 24 22 - 32 mmol/L M[facility] Comment:Testing performed by : [address] [address] Anion gap 15 2 - 15 mmol/L [facility] Comment:Testing performed by : [address], [place]., [address] BUN 31(H) 6 - 25 mg/dL [facility] Comment:Testing performed by : [address], [place]., [address] Creatinine 1.08 0.60 - 1.10 mg/dL [facility] Comment:Testing performed by : [address], [place]., [address] Glucose 128 70 - 199 mg/dL [facility] [place] Comment: Interpretive Data Fasting glucose >/= [...] was last revised 2022. Testing performed by: [address] [address] Calcium 9.7 8.5 - 10.3 mg/dL [facility] [place] Comment:Testing performed by : [address] [address] Bilirubin, total 0.4 0.1 - 1.2 mg/dL [facility] Comment:Testing performed by : [address] [address] Protein, pl 7.6 6.5 - 8.5 g/dL [facility] Comment:Testing performed by : [address] [address] Albumin 3.9 3.5 - 5.0 g/dL [facility] Comment:Testing performed by : [address] [address] Alk phos 117 40 - 130 Units/L [facility] Comment:Testing performed by : [address] [address] ALT 33 7 - 45 Units/L [facility] Comment:Testing performed by : [address] [address] AST 30 10 - 45 Units/L [facility] Comment:Testing performed by : [address] [address] Blood 10/29/2024 6:16 PM [employer] 10/29/2024 6:38 PM [employer] Zack Sparks DO LAB BLOOD ORDERABLES Final Result Performing Organization Address City/[facility]/ZIP Co de Phone Number MOOK [address] [facility] Department [place] [address] * ECG 12 lead (10/29/2024 6:03 PM ELECT[employer]ING [employer]EM[employer]) Pathologist [facility] Ventricular Rate EKG/Min 89 BPM [facility] Atrial Rate 89 BPM [facility] CA-Interval (MSEC) 174 ms [facility] QRS-Interval (MSEC) 90 ms [facility] QT-Interval (MSEC) 364 ms [facility] QTc 442 ms [facility] P Baxter 80 degrees [facility] R Baxter -9 degrees [facility] T Baxter 12 degrees [facility] Diagnosis Normal sinus rhythm Moderate voltage criteria for LVH, may be normal variant No previous ECGs available Confirmed by SULTAN OWENS M.D. ([id number]) on 10/29/2024 8:54:52 PM [facility] 10/29/2024 6:03 PM [employer] 10/29/2024 8:54 PM [employer] Zack Sparks DO ECG ORDERABLES Final Resul t [facility] from Last 3 Months Insurance MEDICARE [facility] MEDICARE MEDICARE [facility] MEDICARE SUPPLEMENT Advance Directives For more information, please contact: [phone] * LIMITED - No CPR (Latest Code [...] 1:15 AM 10/30/2024 2:13 AM Care Teams [employer] Mechanic Helper Relationship Specialty Start Date End Date Rosario Sexton DO [address] [facility] [address] [place] [address] PCP - General Family Medicine 04/09/23 Clarisse Kenny MD [address] [facility] [address] [place] [address] Medical Oncologist/Physical Therapy Resident Medical Oncology 11/03/20 Ken Mckeon MD [address] [facility] [address] [place] [address] Consulting Physician Cardiology 11/04/21 Kiana Read NP [address] [facility] [address] [place] [address] Nurse Practitioner Medical Oncology 11/04/21
--- OUTSIDE RECORDS SUMMARY | 2024-11-12 14:46 | XMS_ITS | Clinical Summary ---
Author Organization [facility] Address [address] [place] [address] Phone Care Team Providers Care Senior Technical Recruiter Name Role Phone Hui Veras Primary Care Provider [phone] Allergies Active Allergy Reactions Criticality Noted Date [...] on file Legal Sex Female 6:01 PM SALES REPRESENTATIVE [employer] Gender Identity Not on file Sexual Orientation Not on file Last Filed Vital Signs Vital Sign Reading Time Taken Comments Blood Pressure 127/53 08/26/2019 3:00 PM [employer]ES REPRESENTATIVE [employer] Pulse 57 08/26/2019 3:00 PM SALES REPRESENTATIVE [employer] Temperature 36.9 C (98.4 F) 08/26/2019 3:00 PM SALES REPRESENTATIVE [employer] Respiratory Rate 18 08/26/2019 3:00 PM SALES REPRESENTATIVE [employer]ICE Oxygen Saturation 97% 08/26/2019 7:36 AM SALES REPRESENTATIVE [employer] Inhaled Oxygen Concentration - - Weight 90.3 kg (199 lb) 08/25/2019 10:38 PM SALES REPRESENTATIVE [employer] SERVICE Height 162.6 cm (5' 4 ) 08/25/2019 10:38 PM SALES REPRESENTATIVE G[employer] SERVICE Body Mass Index 34.16 08/25/2019 10:38 PM SALES REPRESENTATIVE [employer] SERVICE Plan of Treatment Health Maintenance Due Date [...] measures to stabilize the patient. Care Teams Senior Technical Recruiter Relationship Specialty Start Date End Date Hui Veras PA PCP - General Family Medicine 08/26/19
--- OUTSIDE RECORDS SUMMARY | 2024-11-12 14:46 | XMS_ITS | Clinical Summary ---
Author Organization Unknown Care Team Providers Care Balance Bridge Inspector Name Role Phone NIR RUEDA DO Unavailable Unavailable LUIS ALBERTO MARSHALL, CHEY Unavailable Unavailnoreen e Payers Payer Name Policy Type Policy Number Effective Date Expira tion Date MEDICARE.[facility] [id number] Problems Condition Name Condition Details Condition Category [...] 10-30 00:00: 00 ATHSCL HEART DISEASE OF [place] CORONARY ARTERY W/O ANG PCTRS Active 10-30 [...] HORMONE REPLACEMENT THERAPY Active 10-30 00:00: 00 HANDER IN (CURRENT) USE OF SYSTEMIC STEROIDS Active 10-30 00:00: 00 SENIOR CARE (CURRENT) USE OF ASPIRIN Active 10-30 00:00: 00 SENIOR CARE (CURRENT) USE OF INHALED STEROIDS Active 10-30 [...] PHYSICIANS . RN TO OBSERVE AND ASSESS, CUTTER V GROOVE/ORDINARY SEAMAN TO OBSERVE FOR RISK FOR FALLS AND INSTRUCT IN FALL PREVENTION, HOME SAFETY, MEDICATION MANAGEMENT, INFECTION PREVENTION, AND NUTRITION MANAGEMENT. RN/CUTTER V GROOVE/ORDINARY SEAMAN NURSE MAY PERFORM O2 SATURATION LEVEL ON ADMISSION AND PRN FOR EVERY VISIT FOR RN TO ASSESS/CUTTER V GROOVE TO OBSERVE PATIENT, WITH NOTIFICATION TO THE PHYSICIAN IF SATURATION IS 90% IN THE ABSENCE OF MORE SPECIFIC PARAMETERS FROM THE PHYSICIAN. AGENCY MAY PERFORM A RESUMPTION OF CARE VISIT FOLLOWING ANY HOSPITAL ADMISSION. RN/CUTTER V GROOVE/ORDINARY SEAMAN TO MONITOR CO-MORBID CONDITIONS LISTED ON THE PLAN OF CARE AND ANY NEW CONDITIONS THAT PRESENT THEMSELVES DURING THIS EPISODE TO IDENTIFY CHANGES AND INTERVENE TO MINIMIZE COMPLICATIONS. [code = RN TO OBSERVE, ASSESS, EVALUATE, AND DEVELOP AN INDIVIDUALIZED PLAN OF CARE. AGENCY MAY ACCEPT ORDERS FROM CONSULTING PHYSICIANS . RN TO OBSERVE AND ASSESS, CUTTER V GROOVE/ORDINARY SEAMAN TO OBSERVE FOR RISK FOR FALLS AND INSTRUCT IN FALL PREVENTION, HOME SAFETY, MEDICATION MANAGEMENT, INFECTION PREVENTION, AND NUTRITION MANAGEMENT. RN/CUTTER V GROOVE/ORDINARY SEAMAN NURSE MAY PERFORM O2 SATURATION LEVEL ON ADMISSION AND PRN FOR EVERY VISIT FOR RN TO ASSESS/CUTTER V GROOVE TO OBSERVE PATIENT, WITH NOTIFICATION TO THE PHYSICIAN IF SATURATION IS 90% IN THE ABSENCE OF MORE SPECIFIC PARAMETERS FROM THE PHYSICIAN. AGENCY MAY PERFORM A RESUMPTION OF CARE VISIT FOLLOWING ANY HOSPITAL ADMISSION. RN/CUTTER V GROOVE/ORDINARY SEAMAN TO MONITOR CO-MORBID CONDITIONS LISTED ON THE PLAN OF CARE AND ANY NEW CONDITIONS THAT PRESENT THEMSELVES DURING THIS EPISODE TO IDENTIFY CHANGES AND INTERVENE TO MINIMIZE COMPLICATIONS.] Future Scheduled Test MEDICATION MANAGEMENT; RN/CUTTER V GROOVE/ORDINARY SEAMAN TO REVIEW MEDICATIONS FOR INTERACTIONS, EFFECTIVENESS OF DRUG THERAPY, AND SIGNS/SYMPTOMS OF ADVERSE REACTIONS. MAY INSTRUCT AND REINFORCE MEDICATION TEACHING RELATED TO THE USE OF MEDICATIONS, DOSAGE, FREQUENCY, PURPOSE, SIDE EFFECTS, AND TO REPORT COMPLICATIONS. [code = MEDICATION MANAGEMENT; RN/CUTTER V GROOVE/ORDINARY SEAMAN TO REVIEW MEDICATIONS FOR INTERACTIONS, EFFECTIVENESS OF DRUG THERAPY, AND SIGNS/SYMPTOMS OF ADVERSE REACTIONS. MAY INSTRUCT AND REINFORCE MEDICATION TEACHING RELATED TO THE USE OF MEDICATIONS, DOSAGE, FREQUENCY, PURPOSE, SIDE EFFECTS, AND TO REPORT COMPLICATIONS.] Future Scheduled Test RISK FOR H OSPITALIZATION; RN TO ASSESS/TEACH, ORDINARY SEAMAN/CUTTER V GROOVE TO OBSERVE/TEACH PATIENT/CAREGIVER ON RISK FOR HOSPITALIZATION/EMERGENCY ROOM VISITS, TEACH SIGNS AND SYMPTOMS THAT PUT PATIENT AT RISK, WHEN TO NOTIFY NURSE/PHYSICIAN OF COMPLICATIONS/DECLINE, AND WHEN TO CALL 911. [code = RISK FOR HOSPITALIZATION; RN TO ASSESS/TEACH, ORDINARY SEAMAN/CUTTER V GROOVE TO OBSERVE/TEACH PATIENT/CAREGIVER ON RISK FOR HOSPITALIZATION/EMERGENCY ROOM VISITS, TEACH SIGNS AND SYMPTOMS THAT PUT PATIENT AT RISK, WHEN TO NOTIFY NURSE/PHYSICIAN OF COMPLICATIONS/DECLINE, AND WHEN TO CALL 911.] Future Scheduled Test CARDIOVASC ULAR SYSTEM; RN TO ASSESS/TEACH, CUTTER V GROOVE/ORDINARY SEAMAN TO OBSERVE/TEACH RELATED TO ALTERED CARDIOVASCULAR STATUS TO MINIMIZE COMPLICATIONS AND REDUCE HOSPITALIZATION. [code = CARDIOVASCULAR SYSTEM; RN TO ASSESS/TEACH, CUTTER V GROOVE/ORDINARY SEAMAN TO OBSERVE/TEACH RELATED TO ALTERED CARDIOVASCULAR STATUS TO MINIMIZE COMPLICATIONS AND REDUCE HOSPITALIZATION.] Future Scheduled Test HYPERTENSI ON MANAGEMENT; RN TO ASSESS AND TEACH, CUTTER V GROOVE/ORDINARY SEAMAN TO OBSERVE AND TEACH WARNING SIGNS AND SYMPTOMS TO AVOID HOSPITALIZATION. [code = HYPERTENSION MANAGEMENT; RN TO ASSESS AND TEACH, CUTTER V GROOVE/ORDINARY SEAMAN TO OBSERVE AND TEACH WARNING SIGNS AND SYMPTOMS TO AVOID HOSPITALIZATION.] Future Scheduled Test ARRHYTHMIA MANAGEMENT; RN TO ASSESS AND TEACH, CUTTER V GROOVE/ORDINARY SEAMAN TO OBSERVE AND TEACH WARNING SIGNS AND SYMPTOMS TO AVOID HOSPITALIZATION. [code = ARRHYTHMIA MANAGEMENT; RN TO ASSESS AND TEACH, CUTTER V GROOVE/ORDINARY SEAMAN TO OBSERVE AND TEACH WARNING SIGNS AND SYMPTOMS TO AVOID HOSPITALIZATION.] Future Scheduled Test RESPIRATOR Y SYSTEM MANAGEMENT; RN TO ASSESS AND TEACH, CUTTER V GROOVE/ORDINARY SEAMAN TO OBSERVE AND TEACH RELATED TO ALTERED RESPIRATORY STATUS TO MINIMIZE COMPLICATIONS AND REDUCE HOSPITALIZATION. [code = RESPIRATORY SYSTEM MANAGEMENT; RN TO ASSESS AND TEACH, CUTTER V GROOVE/ORDINARY SEAMAN TO OBSERVE AND TEACH RELATED TO ALTERED RESPIRATORY STATUS TO MINIMIZE COMPLICATIONS AND REDUCE HOSPITALIZATION.] Future Scheduled Test PNEUMONIA MANAGEMENT; RN TO ASSESS AND TEACH, CUTTER V GROOVE/ORDINARY SEAMAN TO OBSERVE AND TEACH SIGNS OF PNEUMONIA EXACERBATION AND PROVIDE EARLY INTERVENTIONS TO MINIMIZE RISK OF HOSPITALIZATION. [code = PNEUMONIA MANAGEMENT; RN TO ASSESS AND TEACH, CUTTER V GROOVE/ORDINARY SEAMAN TO OBSERVE AND TEACH SIGNS OF PNEUMONIA EXACERBATION AND PROVIDE EARLY INTERVENTIONS TO MINIMIZE RISK OF HOSPITALIZATION.] Future Scheduled Test PAIN MANAG EMENT; RN TO ASSESS AND TEACH, ORDINARY SEAMAN/CUTTER V GROOVE TO OBSERVE AND TEACH AND PROVIDE EDUCATION ON PAIN MANAGEMENT TECHNIQUES. [code = PAIN MANAGEMENT; RN TO ASSESS AND TEACH, ORDINARY SEAMAN/CUTTER V GROOVE TO OBSERVE AND TEACH AND PROVIDE EDUCATION ON PAIN MANAGEMENT TECHNIQUES.] Future Scheduled Test GENITOURIN MENDOZA MANAGEMENT; RN TO ASSESS AND TEACH, CUTTER V GROOVE/ORDINARY SEAMAN TO OBSERVE AND TEACH RELATED TO ALTERED GENITOURINARY STATUS TO MINIMIZE COMPLICATIONS AND REDUCE HOSPITALIZATION. [code = GENITOURINARY MANAGEMENT; RN TO ASSESS AND TEACH, CUTTER V GROOVE/ORDINARY SEAMAN TO OBSERVE AND TEACH RELATED TO ALTERED GENITOURINARY STATUS TO MINIMIZE COMPLICATIONS AND REDUCE HOSPITALIZATION.] Future Scheduled Test URINARY CU LTURE AND SENSITIVITY PROTOCOL UP TO 2 PRN RN/CUTTER V GROOVE/ORDINARY SEAMAN VISITS MAY BE PERFORMED FOR S/S OF UTI. RN TO ASSESS, CUTTER V GROOVE/ORDINARY SEAMAN TO OBSERVE INITIATION OF UTI PROTOCOL. RN/ORDINARY SEAMAN/CUTTER V GROOVE TO INSTRUCT PATIENT AND/OR CAREGIVER ON S/S OF UTI TO REPORT TO RN/CUTTER V GROOVE/ORDINARY SEAMAN IF NEW OR WORSENING SYMPTOMS. DRINK PLENTY OF WATER THROUGHOUT THE DAY TO MAINTAIN HYDRATION (UNLESS CONTRAINDICATED.) URINATE WHEN THE URGE IS FELT, DO NOT WAIT. WASH GENITALS DAILY. WIPE FROM FRONT TO BACK AFTER HAVING A BOWEL MOVEMENT. RN/ORDINARY SEAMAN/CUTTER V GROOVE TO OBTAIN UA WITH C/S VIA CLEAN CATCH URINE AND IF UNABLE TO OBTAIN MAY PERFORM AN IN AND OUT CATH. IF PATIENT HAS INDWELLING CATHETER MAY OBTAIN FROM SAMPLING PORT. NOTIFY PROVIDER OF RESULTS AND OBTAIN FURTHER ORDERS. [code = URINARY CULTURE AND SENSITIVITY PROTOCOL UP TO 2 PRN RN/CUTTER V GROOVE/ORDINARY SEAMAN VISITS MAY BE PERFORMED FOR S/S OF UTI. RN TO ASSESS, CUTTER V GROOVE/ORDINARY SEAMAN TO OBSERVE INITIATION OF UTI PROTOCOL. RN/ORDINARY SEAMAN/CUTTER V GROOVE TO INSTRUCT PATIENT AND/OR CAREGIVER ON S/S OF UTI TO REPORT TO RN/CUTTER V GROOVE/ORDINARY SEAMAN IF NEW OR WORSENING SYMPTOMS. DRINK PLENTY OF WATER THROUGHOUT THE DAY TO MAINTAIN HYDRATION (UNLESS CONTRAINDICATED.) URINATE WHEN THE URGE IS FELT, DO NOT WAIT. WASH GENITALS DAILY. WIPE FROM FRONT TO BACK AFTER HAVING A BOWEL MOVEMENT. RN/ORDINARY SEAMAN/CUTTER V GROOVE TO OBTAIN UA WITH C/S VIA CLEAN CATCH URINE AND IF UNABLE TO OBTAIN MAY PERFORM AN IN AND OUT CATH. IF PATIENT HAS INDWELLING CATHETER MAY OBTAIN FROM SAMPLING PORT. NOTIFY PROVIDER OF RESULTS AND OBTAIN FURTHER ORDERS.] Future Scheduled Test URINARY IN CONTINENCE MANAGEMENT; RN TO ASSESS AND TEACH, CUTTER V GROOVE/LVNTO OBSERVE AND TEACH MANAGEMENT OF URINARY INCONTINENCE. TEACH/INSTRUCT ON PREVENTING INFECTION AND SKIN BREAKDOWN. RN/CUTTER V GROOVE/ORDINARY SEAMAN MAY INSTRUCT IN BLADDER TRAINING PROGRAM INDICATED. [code = URINARY INCONTINENCE MANAGEMENT; RN TO ASSESS AND TEACH, CUTTER V GROOVE/LVNTO OBSERVE AND TEACH MANAGEMENT OF URINARY INCONTINENCE. TEACH/INSTRUCT ON PREVENTING INFECTION AND SKIN BREAKDOWN. RN/CUTTER V GROOVE/ORDINARY SEAMAN MAY INSTRUCT IN BLADDER TRAINING PROGRAM INDICATED.] Future Scheduled Test URINARY TR ACT INFECTION MANAGEMENT; RN/ORDINARY SEAMAN/CUTTER V GROOVE TO PROVIDE SKILLED TEACHING AND SELF- CARE MANAGEMENT RELATED TO UTI TO MINIMIZE COMPLICATIONS AND REDUCE THE RISK OF HOSPITALIZATION. [code = URINARY TRACT INFECTION MANAGEMENT; RN/ORDINARY SEAMAN/CUTTER V GROOVE TO PROVIDE SKILLED TEACHING AND SELF- CARE MANAGEMENT RELATED TO UTI TO MINIMIZE COMPLICATIONS AND REDUCE THE RISK OF HOSPITALIZATION.] Future Scheduled Test URINARY MO LECULAR TESTING PROTOCOL UP TO 2 PRN RN/CUTTER V GROOVE/ORDINARY SEAMAN VISITS MAY BE PERFORMED FOR S/S OF UTI. RN TO ASSESS, CUTTER V GROOVE/ORDINARY SEAMAN TO OBSERVE INITIATION OF UTI PROTOCOL. RN/ORDINARY SEAMAN/CUTTER V GROOVE TO INSTRUCT PATIENT AND/OR CAREGIVER ON S/S OF UTI TO REPORT TO RN/ORDINARY SEAMAN/CUTTER V GROOVE IF NEW OR WORSENING SYMPTOMS. DRINK PLENTY OF WATER THROUGHOUT THE DAY TO MAINTAIN HYDRATION (UNLESS CONTRAINDICATED.) URINATE WHEN THE URGE IS FELT, DO NOT WAIT. WASH GENITALS DAILY. WIPE FROM FRONT TO BACK AFTER HAVING A BOWEL MOVEMENT. RN/ORDINARY SEAMAN/CUTTER V GROOVE TO OBTAIN MOLECULAR URINE TESTING BY OPTION 1 OR OPTION 2 (OPTION 1) RN/ORDINARY SEAMAN/CUTTER V GROOVE TO OBTAIN U/A WITH REFLEX TO UTI PANEL (MOLECULAR) VIA CLEAN CATCH URINE AND IF UNABLE TO OBTAIN MAY PERFORM AN IN AND OUT CATH. IF PATIENT HAS INDWELLING CATHETER MAY OBTAIN FROM SAMPLING PORT. (OPTION 2) RN/ORDINARY SEAMAN/CUTTER V GROOVE TO OBTAIN UTI PANEL (MOLECULAR) VIA SWAB COLLECTION METHOD FROM ADULT BRIEF/DIAPER OR PAD IF PATIENT IS INCONTINENT. NOTIFY PROVIDER OF RESULTS AND OBTAIN FURTHER ORDERS. [code = URINARY MOLECULAR TESTING PROTOCOL UP TO 2 PRN RN/CUTTER V GROOVE/ORDINARY SEAMAN VISITS MAY BE PERFORMED FOR S/S OF UTI. RN TO ASSESS, CUTTER V GROOVE/ORDINARY SEAMAN TO OBSERVE INITIATION OF UTI PROTOCOL. RN/ORDINARY SEAMAN/CUTTER V GROOVE TO INSTRUCT PATIENT AND/OR CAREGIVER ON S/S OF UTI TO REPORT TO RN/ORDINARY SEAMAN/CUTTER V GROOVE IF NEW OR WORSENING SYMPTOMS. DRINK PLENTY OF WATER THROUGHOUT THE DAY TO MAINTAIN HYDRATION (UNLESS CONTRAINDICATED.) URINATE WHEN THE URGE IS FELT, DO NOT WAIT. WASH GENITALS DAILY. WIPE FROM FRONT TO BACK AFTER HAVING A BOWEL MOVEMENT. RN/ORDINARY SEAMAN/CUTTER V GROOVE TO OBTAIN MOLECULAR URINE TESTING BY OPTION 1 OR OPTION 2 (OPTION 1) RN/ORDINARY SEAMAN/CUTTER V GROOVE TO OBTAIN U/A WITH REFLEX TO UTI PANEL (MOLECULAR) VIA CLEAN CATCH URINE AND IF UNABLE TO OBTAIN MAY PERFORM AN IN AND OUT CATH. IF PATIENT HAS INDWELLING CATHETER MAY OBTAIN FROM SAMPLING PORT. (OPTION 2) RN/ORDINARY SEAMAN/CUTTER V GROOVE TO OBTAIN UTI PANEL (MOLECULAR) VIA SWAB COLLECTION METHOD FROM ADULT BRIEF/DIAPER OR PAD IF PATIENT IS INCONTINENT. NOTIFY PROVIDER OF RESULTS AND OBTAIN FURTHER ORDERS.] Future Scheduled Test FALL REDUC TION MANAGEMENT; RN TO ASSESS AND OBSERVE, CUTTER V GROOVE/ORDINARY SEAMAN TO OBSERVE FALL RISK FACTORS AND EDUCATE PATIENT/CAREGIVER ON STRATEGIES TO MINIMIZE THE RISK OF FALLING. [code = FALL REDUCTION MANAGEMENT; RN TO ASSESS AND OBSERVE, CUTTER V GROOVE/ORDINARY SEAMAN TO OBSERVE FALL RISK FACTORS AND EDUCATE PATIENT/CAREGIVER ON STRATEGIES TO MINIMIZE THE RISK OF FALLING.] Future Scheduled Test ASTHMA MAN AGEMENT; RN TO ASSESS AND TEACH, CUTTER V GROOVE/ORDINARY SEAMAN TO OBSERVE AND TEACH ASTHMA MANAGEMENT AND PROVIDE EARLY INTERVENTIONS TO MINIMIZE RISK OF HOSPITALIZATION [code = ASTHMA MANAGEMENT; RN TO ASSESS AND TEACH, CUTTER V GROOVE/ORDINARY SEAMAN TO OBSERVE AND TEACH ASTHMA MANAGEMENT AND PROVIDE EARLY INTERVENTIONS TO MINIMIZE RISK OF HOSPITALIZATION] Future Scheduled Test PRN VISITS ; NUMBER OF RN/CUTTER V GROOVE/ORDINARY SEAMAN VISITS: 1 RN/CUTTER V GROOVE/ORDINARY SEAMAN TO PERFORM: RESPIRATORY MANAGEMENT FOR THE FOLLOWING REASONS: COMPLICATIONS [code = PRN VISITS; NUMBER OF RN/CUTTER V GROOVE/ORDINARY SEAMAN VISITS: 1 RN/CUTTER V GROOVE/ORDINARY SEAMAN TO PERFORM: RESPIRATORY MANAGEMENT FOR THE FOLLOWING [...] TO EVALUATE, OBSERVE / ASSESS, AND MONITOR, EDUCATIONAL ASSISTANT TO OBSERVE AND MONITOR, PROVIDE SKILLED THERAPEUTIC INTERVENTION, ACTIVITY, EDUCATION, AND TRAINING TO ADDRESS SAFETY AND INDEPENDENCE OF ADLS AND FUNCTIONAL TRANSFERS IN HOME ENVIRONMENT. ACTIVITIES OF DAILY LIVING (OT/EDUCATIONAL ASSISTANT) TOILET TRANSFER (OT/EDUCATIONAL ASSISTANT) BATH/SHOWER TRANSFER (OT/JOSÉ) THERAPEUTIC EXERCISE (OT/EDUCATIONAL ASSISTANT) ENERGY CONSERVATION/ACTIVITY DEMAND (OT/JOSÉ) OT/EDUCATIONAL ASSISTANT TO MONITOR AND EDUCATE ON OXYGEN SATURATION DURING ADLS/IADLS, NOTIFY PHYSICIAN AND/OR THE RN CLINICAL REGIONAL ENGAGEMENT CONSULTANT FOR PHYSICIAN NOTIFICATION AND IF O2 SATS BELOW 90% AFTER 10 MIN OF REST. OT / EDUCATIONAL ASSISTANT TO IDENTIFY FALL RISK FACTORS; EDUCATE THE [...] TRANSFER (OT/JOSÉ) BATH/SHOWER TRANSFER (OT/JOSÉ) THERAPEUTIC EXERCISE (OT/EDUCATIONAL ASSISTANT) ENERGY CONSERVATION/ACTIVITY DEMAND (OT/EDUCATIONAL ASSISTANT) OT/EDUCATIONAL ASSISTANT TO MONITOR AND EDUCATE ON OXYGEN SATURATION DURING ADLS/IADLS, NOTIFY PHYSICIAN AND/OR THE RN CLINICAL REGIONAL ENGAGEMENT CONSULTANT FOR PHYSICIAN NOTIFICATION AND IF O2 SATS BELOW 90% AFTER 10 MIN OF REST. OT / EDUCATIONAL ASSISTANT TO IDENTIFY FALL RISK FACTORS; EDUCATE THE PATIENT/CAREGIVER ON WAYS TO REDUCE FALL RISK FACTORS AND ESTABLISH HOME EXERCISE PROGRAM TO MINIMIZE FALL RISK. MAY TEACH THE PATIENT FLOOR RECOVERY WHEN CLINICALLY APPROPRIATE. OT/JOSÉ TO EDUCATE ON HYPERTENSION SELF-MANAGEMENT OT/EDUCATIONAL ASSISTANT TO EDUCATE ON ATRIAL FIBRILLATION SELF-MANAGEMENT.] Goal [...] 2024-11-06 00:00:00 2025-01-04 00:00:00 Outpatient NEW ADMISSION [facility] [id number]
[2024-11-12 15:04] LABS: Lactic Acid Reflex 2.9 mmol/L (0.7-2.0)
[2024-11-12 15:05] LABS: Alanine Aminotransferase 39 U/L (6-35); Albumin Level 3.9 g/dL (3.5-5.1); Alkaline Phosphatase 94 U/L (38-126); Anion Gap 9 mmol/L (4-12); Aspartate Amino Transferase 21 U/L (14-36); Bilirubin,Total 0.6 mg/dL (0.2-1.3); Blood Urea Nitrogen 15 mg/dL (7-17); Calcium 9.2 mg/dL (8.4-10.2); Carbon Dioxide 27 mmol/L (22-30); Chloride 100 mmol/L (98-107); Estimated CRCL calculation 68 ml/min; Estimated Glomerular Filt Rate > 60; Glucose 124 mg/dL (65-110); Magnesium 2.4 mg/dL (1.6-2.3); Potassium 4.4 mmol/L (3.4-5.0); Sodium 136 mmol/L (137-145)
[2024-11-12 15:13] LABS: INR 0.9; Prothrombin Time 12.4 Seconds (11.1-14.7)
[2024-11-12 15:14] LABS: Partial Thromboplastin Time 20.6 Seconds (22.3-36.8)
[2024-11-12 15:17] LABS: NT Pro B Type Natriuretic Pept 230 pg/mL (19.9-100); Troponin I < 0.012 ng/mL (0.000-0.034)
[2024-11-12 15:31] LABS: Influenza A QL RT-PCR Negative (Negative); Influenza B QL RT-PCR Negative (Negative); RSV RNA, RT-PCR Negative (Negative); SARS-CoV-2 RNA PCR Negative (Negative)
[2024-11-12 16:41] LABS: Basophils Percent Auto 0.3 % (0.2-1.2); Eosinophils Percent Auto 0.1 % (0-4.4); Hematocrit 42.9 % (37.0-47.0); Hemoglobin 13.9 g/dL (12.0-15.0); Immature Granulocyte Absolute 0.18 K/mm3 (0.00-0.031); Immature Granulocyte Percent A 1.6 % (0-0.5); Lymphocytes Absolute Auto 1.73 K/mm3 (0.9-3.2); Lymphocytes Percent Auto 14.9 % (18.3-44.2); Mean Corpuscular HGB Conc 32.4 g/dl (32-36); Mean Corpuscular Hemoglobin 29.1 pg (26-34); Mean Corpuscular Volume 89.7 fl (80-100); Mean Platelet Volume 9.9 fl (7.4-10.4); Monocytes Absolute Auto 0.5 K/mm3 (0.1-0.6); Neutrophils Absolute Auto 9.2 K/mm3 (1.3-6.7); Neutrophils Percent Auto 79.1 % (45.5-73.1); Platelet Count Result 305 k/mm3 (150-375); Red Blood Count 4.78 M/mm3 (4.2-5.4); Red Cell Distribution Width 15.4 % (11.5-14.5); White Blood Count 11.6 K/mm3 (4.5-10.0)
[2024-11-12 16:47] VITALS: BP 113/59; PULSE 65; RESP 12; O2SAT 95
[2024-11-12 17:51] LABS: Reflex Lactic Acid Yes or No Add Lactic
== END 2024-11-12 17:59 | disposition home or self-care (01) ==
PROVIDERS: Emergency Provider Emergency Medicine; PCP Family Medicine
DX: R53.1 Weakness (principal); Z20.822 Contact with and (suspected) exposure to COVID-19; E07.9 Disorder of thyroid, unspecified; E78.00 Pure hypercholesterolemia, unspecified; J45.909 Unspecified asthma, uncomplicated; K21.9 Gastro-esophageal reflux disease without esophagitis; M19.90 Unspecified osteoarthritis, unspecified site; Z87.01 Personal history of pneumonia (recurrent); H81.09 Meniere's disease, unspecified ear; Z87.09 Personal history of other diseases of the respiratory system; Z90.710 Acquired absence of both cervix and uterus; Z79.899 Other long term (current) drug therapy; R00.1 Bradycardia, unspecified; I51.7 Cardiomegaly; R94.31 Abnormal electrocardiogram [ECG] [EKG]
CPT/HCPCS: 36415; 36600; 71045; 80053; 82805; 83605; 83735; 83880; 84484; 85018; 85025; 85380; 85610; 85730; 87040; 87637; 93005; 99284

== ENCOUNTER 2025-07-17 09:35 | Outpatient (CLI) | payer MEDICARE, SELFPAY ==
--- OUTSIDE RECORDS SUMMARY | 2025-07-17 09:49 | XMS_ITS | Encounter Summary ---
Author Organization [facility] Address [address] [place] [address] Phone Care Team Providers Care Conveyor Monitor Name Role Phone Abdulaziz Verasleonardo CHOPRA Primary Care Pr ovider Clarisse Kenny MD Unavailable [phone] Josh Harris MD Primary Care Provide r Ken Mckeno MD Unavailable [phone] Kiana Read NP Unavailable [phone] Rosario Sexton DO Primary Care Provider + [...] on file Legal Sex Female 9:01 AM FURNACE INSTALLER Gender Identity Not on file Sexual Orientation [...] COVID: Suspected 10/29/2024 10/29/2024 10/29/2024 7:24 PM FURNACE INSTALLER RSV, droplet 10/29/2024 10/29/2024 11/05/2024 3:07 AM FURNACE INSTALLER documented as of this encounter Care Teams Conveyor Monitor Relationship Specialty Start Date End Date Eda Hui KEYSHA Lozano PCP - General Physician Referral Manager 10/01/19 09/20/21 Josh Harris MD [address] [facility] [address] [place] [address] PCP - General Internal Medicine 09/21/21 04/08/23 Rosario Sexton DO [address] [facility] [address] [place] [address] PCP - General Family Medicine 04/09/23 Clarisse Kenny MD [address] [facility] [address] [place] [address] Medical Oncologist/Swatch Clerk Medical Oncology 11/03/20 Ken Mckeon MD [address] [facility] [address] [place] [address] Consulting Physician Cardiology 11/04/21 Kiana Read NP [address] [facility] [address] [place] [address] Nurse Practitioner Medical Oncology 11/04/21 documented as of this encounter
--- OUTSIDE RECORDS SUMMARY | 2025-07-17 09:49 | XMS_ITS | Clinical Summary ---
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 Gender Identity Not on file Sexual Orientation Not on file Last Filed Vital Signs Vital Sign Reading Time Taken Comments Blood Pressure 127/53 08/26/2019 3:00 PM LEISURE STUDIES PROFESSOR Pulse 57 08/26/2019 3:00 PM LEISURE STUDIES PROFESSOR Temperature 36.9 C (98.4 F) 08/26/2019 3:00 PM LEISURE STUDIES PROFESSOR Respiratory Rate 18 08/26/2019 3:00 PM LEISURE STUDIES PROFESSOR Oxygen Saturation 97% 08/26/2019 7:36 AM LEISURE STUDIES PROFESSOR Inhaled Oxygen Concentration - - Weight 90.3 kg (199 lb) 08/25/2019 10:38 PM LEISURE STUDIES PROFESSOR Height 162.6 cm (5' 4) 08/25/2019 10:38 PM LEISURE STUDIES PROFESSOR Body Mass Index 34.16 08/25/2019 10:38 PM LEISURE STUDIES PROFESSOR Plan of Treatment Health Maintenance Due Date Last Done Comments Hepatitis C Virus (HCV) Screening 1940 TdaP Immunization 1940 Zoster Immunization (1 of 2) 1957 Medicare Initial AWV [id number] 06/24/2004 Respiratory Syncytial Virus (RSV) Immunization (Adult) (1 - 1-dose 75+ series) 2013 Influenza Immunization (#1) 2025 SARS-COV-2 Immunization ( season) 2025 07/25/2021, 12/17/2020, 11/19/2020 Pneumococcal Immunization (5 0+ years) Completed 05/01/2017, 04/17/2016 Pneumococcal Immunization Combined Discontinued 05/01/2017, 04/17/2016 Hepatitis B Immunization Aged Out No longer eligible based on patient's age to complete this topic Human Papillomavirus (HPV) Immunization Aged Out No longer eligible based on patient's age to complete this topic Meningococcal Immunization (ACWY) Aged Out No longer eligible based on patient's age to complete this topic Rotavirus Immunization Aged Out No lo nger eligible based on patient's age to complete this topic Insurance [facility] MEDICARE Advance Directives * Full Code (Latest Code Status on File) Date Activated Date Inactivated Comments 08/25/2019 11:11 PM 08/26/2019 7:48 PM CPR-Full Tr eatment: FULL ARREST: Attempt Resuscitation/CPR wit intubation and mechanical ventilation. PRE-ARREST: Use entire range of life support measures to stabilize the patient. Care Teams Hat Marker Relationship Specialty Start Date End Date Hui Veras PA PCP - General Family Medicine 08/26/19
--- OUTSIDE RECORDS SUMMARY | 2025-07-17 09:49 | XMS_ITS | Clinical Summary ---
Author Organization [facility] Address [address] [place] [address] Care Team Providers Care Jv Baseball Coach Name Role Phone Clarisse Kenny MD Unavailable [phone] Ken Mckeon MD Unavailable [phone] Kiana Read NP Unavailable [phone] Rosario Sexton DO Primary Care Provider + Allergies Active Allergy Reactions Criticality Noted Date Comments Meperidine Vomiting High 04/28/2020 Perforated Ulcer, vomiting blood Doxycycline Vomiting Medium 04/03/2022 Mold Shortness of breath High 04/28/2020 Patient has asthma, mold causes SOB & asthma flare Pravastatin Muscle pain Medium 03/31/2022 Pravastatin Medications hydroCHLOROthia zide (HYDRODIURIL) 25 mg tablet Take 1 tablet (25 mg total) by mouth daily 8 Active levothyroxine (SYNTHROID) 75 mcg tablet Take 1 tablet (75 mcg total) by mouth daily 9 Active ferrous sulfate 325 mg (65 mg of elemental iron) tablet Take 1 tablet (325 mg total) by mouth daily 8 Active cyanocobalamin (Vitamin B-12) 1,000 mcg tablet Take 1 tablet (1,000 mcg total) by mouth daily 8 Active niacin 500 mg tablet Take 1 tablet (500 mg total) by mouth daily 8 Active fluticasone propion-salmete roL (ADVAIR DISKUS) 250-50 mcg/dose diskus inhaler Wixela Inhub 250 mcg-50 mcg/dose powder for inhalation Inhale 1 inhalation twice a day by inhalation route. 8 Active magnesium gluconate 200 mg tabletIndicatio ns:hypomagnesem ia Take 1 tablet (200 mg total) by mouth [address] (PROTONIX) 20 mg EC tablet Take 1 tablet (20 mg total) by mouth daily Active aspirin 81 mg enteric coated tablet aspirin 81 mg tablet,delayed release Take 1 tablet every day by oral route. 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 Paroxysmal atrial fibrillation 03/31/2022 LEE (dyspnea on exertion) 07/21/2020 Chronic fatigue 07/21/2020 Palpitations 07/21/2020 Uncomplicated asthma 07/21/2020 Hypertension 07/08/2018 Mixed hyperlipidemia 05/01/2017 History of pulmonary embolism 10/28/2016 Personal history of breast cancer 06/22/2015 Resolved Problems Problem Noted Date Diagnosed Date Resolved Date History of atrial fibrillation 07/21/2020 04/09/2023 Chronic anticoagulation 04/21/201603/24 Encounters Date Type Department Care Team Description 05/04/2025 10:20 AM CDT Lab [address] [address] Palpitations 05/04/2025 Telephone [facility] Medicine Cardiology [address] [place] [address] [address] [place] [address] [place] [address] Jg Aviles MD med list review 05/04/2025 Telephone [facility] Medicine Cardiology [address] [place] [address] 8th [place] [address] [place] [address] Jg Aviles MD Med Refill 05/03/2025 Results Follow-Up [facility] Cardiology [address] [place] [address] Jg Aviles MD ECG 12 lead, Pro B-type natriuretic peptide, Basic metabolic panel, eGFR 05/01/2025 11:00 AM CDT Office Visit [facility] Cardiology [address] [facility] [address] [place] [address] Jg Aviles MD Palpitations (Primary Dx) 04/29/2025 Documentation [facility] Medicine Scheduling [address] [place] [address] Danya Terrell IM DOC from Last 3 Months Surgical History Surgery Date Site/Laterality Comments TONSILLECTOMY 09/24/1944 - 09/23/1945 APPENDECTOMY 09/24/1949 - 09/23/1950 HYSTERECTOMY 09/24/1970 - 09/23/1971 CHOLECYSTECTOMY 09/24/1995 - 09/23/1996 SMALL INTESTINE SURGERY 09/24/2015 - 09/23/2016 Medical History Medical History Date Comments Atrial fibrillation (HCC) Asthma Depression Cardiac arrest 2015 during hospital stay in ICU HTN (hypertension) High cholesterol Thyroid disorder Stomach ulcer GIB in 's, non e since Pulmonary embolism Family History Medical History Relation Name Comments No Known Problems Father No Known Problems Mother Relation Name Status Comments Father Mother Social History Tobacco Use Types Packs/Day Years Used Date Smoking Tobacco: Never Smokeless Tobacco: Never Alcohol Use Standard Drinks/Week Comments Yes 0 (1 standard drink = 0.6 oz pur e alcohol) [facility] Utilities Answer Date Recorded In the past 12 months has e electric, gas, oil, or water [employer] threatened to shut off services in your home? No 10/30/2024 Social Connection and Isolation Panel Answer Date Recorded In a typical week, how many times do you talk on the phone with family, friends, or neighbors? More than three times a week 10/30/2024 How often do you get togethe r with friends or relatives? More than three times a week 10/30/2024 How often do you attend [facility] or jehovah's witness services? Never 10/30/2024 Do you belong to any clubs o r organizations such as rastafarian groups, unions, fraternal or athletic groups, or [...] any time in the past 12 m [facility], were you homeless or living in a skilled nursing (including now)? No 10/30/2024 Personal Safety Answer Date Recorded Have you ever been in or are you currently in a harmful physical or emotional relationship or is someone making you feel afraid or unsafe? Denies 10/29/2024 Comments Unknown Sex and Gender Information Value Date Recorded Sex Assigned at Not on file Legal Sex Female 9:01 AM POT [employer]ER Gender Identity Not on file Sexual Orientation Not on file Obstetrics History Last Filed Vital Signs Vital Sign Reading Time Taken Comments Blood Pressure 121/78 05/01/2025 10:34 AM CDT Pulse 64 05/01/2025 10:34 AM CDT Temperature 36.6 C (97.9 F) 11/03/2024 6:18 AM POT LINER Respiratory Rate 18 11/03/2024 8:20 AM POT LINER Oxygen Saturation 96% 05/01/2025 10:34 AM CDT Inhaled Oxygen Concentration - - Weight 88.5 kg (195 lb) 05/01/2025 10:34 AM CDT Height 152.4 cm (5') 10/30/2024 12:28 PM POT LINER Body Mass Index 38.08 10/30/2024 12:28 PM POT LINER Plan of Treatment Health Maintenance Due Date Last Done Comments Depression Screening 1938 DTaP/Tdap/Td Vaccine (1 - Tdap) 1949 Hepatitis B Screening 1956 Zoster Vaccine (1 of 2) 1988 Well Visit 65+ 2003 Osteoporosis Screening-Bone Density Scan 06/11/2017 06/11/2015 Influenza Vaccine (#1) 2025 Fall Risk Assessment 11/03/2025 11/03/2024 Pneumococcal vaccine 65+ Completed 05/01/2017, 03/25 Procedures Procedure Name Priority Date/Time Associated Diagnosis Comments EGFR Routine 05/04/2025 10:27 AM CDT Palpitations BASIC METABOLIC PANEL Routine 05/04/2025 10:27 AM CDT Palpitations PRO B-TYPE NATRIURETIC PEPTIDE Routine 05/04/2025 10:27 AM CDT Palpitations ECG 12-LEAD Routine 05/01/2025 10:27 AM CDT Palpitations from Last 3 Months Results * eGFR (05/04/2025 10:27 AM CDT) eGFR 83 >=60 mL/min/1. 73 m2 Comment: Interpretive Data [...] Inclusion of Race in Diagnosing Kidney Disease, [employer] 2020). The CKD-EPI equation should not be used for patients with unstable renal function and has not been validated in children and those over 70. Current interpretive data was last reviewed 2021. Blood 05/04/2025 10:2 7 AM CDT 05/04/2025 2:16 PM CDT us Jg Aviles MD LAB BLOOD ORDERABLES Final Res ult [facility] [address] [facility] Department [place] [address] * Pro B-type natriuretic peptide (05/04/2025 10:27 AM CDT) NT-proBNP 129 <=450 pg/mL Comment: Interpretive Comments: A. Dyspnea in Acute Care Setting All Ages: < 300 pg/ml, acute heart failure unlikely. < 50 yrs: 300 - 450 pg/ml, further investigation warranted. > 450 pg/ml, acute heart failure likely. 50 - 74 yrs: 300 - 900 pg/ml, further investigation warranted. > 900 pg/ml, acute heart failure likely . > or = 75 yrs: 450 - 1800 pg/ml, further investigation warranted. > 1800 pg/ml, acute heart failure likely. B. Non-acute Setting < 75 yrs < 125 pg/ml, rules out heart failure. > or = 125 pg/ml, further investigation warranted. > or = 75 yrs < 450 pg/ml, rules out heart failure. > or = 450 pg/ml, further investigation warranted. - Knowledge of each individual patient's NT-proBNP range may be more useful than using similar cut-points for every patient. Please note that marked elevations in NT-proBNP levels may be observed in state other than Left Ventricular Congestive Failure, including: acute coronary syndromes, right heart strain/failure (including pulmonary embolism and cor pulmonale), critical illness, renal failure, as well as advanced age. - References: 1. Nicky LANDRY et.al. Eur Heart J. 2006:27:330-337. 2. Tonia SEVILLA, Kingsley NAPIER. J. AM Christine Cardiol: Cardiovasc Imag. 2009;2: 216- 225. Interpretive Data Last Revised Date: 2018. Blood 05/04/2025 10:2 7 AM CDT 05/04/2025 2:16 PM CDT us Jg Aviles MD LAB BLOOD ORDERABLES Final Res ult [facility] [address] [facility] Department [place] [address] * Basic metabolic panel (05/04/2025 10:27 AM CDT) Sodium 141 135 - 145 mmol/L Potassium, pl 4.3 3.3 - 4.9 mmol/L [facility] Chloride 105 97 - 110 mmol/L [facility] CO2 24 22 - 32 mmol/L [facility] Anion gap 12 2 - 15 mmol/L [facility] BUN 23 6 - 25 mg/dL [facility] Creatinine 0.71 0.60 - 1.10 mg/dL [facility] Glucose 119 70 - 199 mg/dL [facility] Comment: Interpretive Data Fasting glucose >/= 126 [...] Current interpretive data was last revised 2022. Calcium 9.3 8.5 - 10.3 mg/dL [facility] Blood 05/04/2025 10:2 7 AM CDT 05/04/2025 2:16 PM CDT Narrative [facility] - 05/04/2025 2:46 PM CDT Has the patient fasted?->No Jg Aviles MD LAB BLOOD ORDERABLES Final Res ult [facility] [address] [facility] Department [place] [address] * ECG 12 lead (05/01/2025 10:27 AM CDT) Jg Aviles MD ECG ORDERABLES Edited Result - Final from Last 3 Months Insurance MEDICARE [facility] Address: [address] [address] [place] [address] [facility] MEDICARE SUPPLEMENT MEDICARE MEDICARE [facility] MEDICARE SUPPLEMENT Advance Directives For more information, please contact: [phone] * LIMITED - No CPR (Latest Code [...] 1:15 AM 10/30/2024 2:13 AM Care Teams Jv Baseball Coach Relationship Specialty Start Date End Date Darshan Rosario DO Aruna [address] [place] [address] PCP - General Family Medicine 04/09/23 Clarisse Kenny MD [address] [facility] [address] [place], [place] [id number] Medical Oncologist/Electrician Crane Maintenance Medical Oncology 11/03/20 Ken Mckeon MD [address] [facility] [address] [place], [place] [id number] Consulting Physician Cardiology 11/04/21 Kiana Read NP [address] [facility] [address] [place] [address] Nurse Practitioner Medical Oncology 11/04/21
[2025-07-17 13:00] LABS: Hematocrit 42.3 % (37.0-47.0); Hemoglobin 13.7 g/dL (12.0-15.0); Immature Granulocyte Percent A 0.2 % (0-0.5); Lymphocytes Absolute Auto 1.96 K/mm3 (0.9-3.2); Mean Corpuscular HGB Conc 32.4 g/dl (32-36); Mean Corpuscular Hemoglobin 29.5 pg (26-34); Mean Corpuscular Volume 91.2 fl (80-100); Nucleated Red Blood Cells Absolute Auto 0.000 K/mm3 (0.0-0.012); Nucleated Red Blood Cells Perc 0.0 % (0.0-0.2); Platelet Count Result 259 k/mm3 (150-375); Red Blood Count 4.64 M/mm3 (4.2-5.4); White Blood Count 5.2 K/mm3 (4.5-10.0)
[2025-07-17 13:22] LABS: Alanine Aminotransferase 16 U/L (6-35); Albumin Level 4.2 g/dL (3.5-5.1); Alkaline Phosphatase 114 U/L (38-126); Anion Gap 8 mmol/L (4-12); Aspartate Amino Transferase 36 U/L (14-36); Bilirubin,Total 0.5 mg/dL (0.2-1.3); Blood Urea Nitrogen 16 mg/dL (7-17); Calcium 9.2 mg/dL (8.4-10.2); Carbon Dioxide 25 mmol/L (22-30); Chloride 105 mmol/L (98-107); Cholesterol 242 mg/dL (0-200); Estimated Glomerular Filt Rate > 60; Glucose 89 mg/dL (65-110); HDL Direct 46 mg/dL; Potassium 3.9 mmol/L (3.4-5.0); Sodium 138 mmol/L (137-145); Total Protein 6.8 g/dL (6.3-8.2); Triglycerides 179 mg/dL (<150)
[2025-07-17 13:28] LABS: Free T4 Free Thyroxine 1.52 ng/dL (0.78-2.19)
[2025-07-17 13:54] LABS: Hemoglobin A1C 5.5 % (<5.7)
[2025-07-17 13:59] LABS: Thyroid Stimulating Hormone 1.810 uIU/mL (0.465-4.680)
[2025-07-17 14:18] LABS: Vitamin B12 879.0 pg/mL (239-931)
== END 2025-07-17 09:36 | disposition home or self-care (01) ==
LOC: ANHGOSHLAB 09:37
DX: E78.41 Elevated Lipoprotein(a) (principal); E78.5 Hyperlipidemia, unspecified; E03.9 Hypothyroidism, unspecified; I10 Essential (primary) hypertension; E55.9 Vitamin D deficiency, unspecified; R73.01 Impaired fasting glucose
CPT/HCPCS: 36415; 80053; 80061; 82172; 82306; 82607; 83036; 84439; 84443; 85025